=== PATIENT | female | born 1990 | race African-American/Black ===

== ENCOUNTER 2023-04-01 15:36 | Observation (INO) | payer BC ==
--- OUTSIDE RECORDS SUMMARY | 2023-04-01 15:44 | XMS REPORT | Continuity of Care Document ---
:1990 Author Organization [facility] t Address [address] [place] [address] Care Team Providers Name Role Phone DAVONSAVANNAH SinghHEN Primary Care Physician Unavailable KIAH BARROS Attending Clinician Unavailable Kiah Barros MD Attending Clinician Norman Zaragoza MD Attending Clinician NORMAN ZARAGOZA Attending Clinician Unavailable MAXWELL PINEDA Attending Clinician Unavailable Maxwell Pineda DO Attending Clinician DAIN MAGAÑA Attending Clinician Unavailable Neil Elkins CRNA Attending Clinician Franklin Hunter MD Attending Clinician Doctor Unassigned, [place] Attending Clinician Unavailable Gena Giraldo Attending Clinician Unavailable GEOVANNY MCKNIGHT Attending Clinician Unavailable Geovanny Mcknight MD Attending Clinician Ck MARTÍNEZ Attending Clinician Unavailable Ck Marquez Attending Clinician LOGAN POWERS Attending Clinician Unavailable Logan Powers MD Attending Clinician [phone] OLGA HUFF Attending Clinician Unavailable Olga Huff MD Attending Clinician 2, [facility] Attending Clinician Unavailable Michael James Attending Clinician RICK SAXENA Attending Clinician Unavailable UNKNOWN, ATTENDING Attending Clinician Unavailable KIAH BARROS Admitting Clinician Unavailable MAXWELL PINEDA Admitting Clinician Unavailable NORMAN ZARAGOZA Admitting Clinician Unavailable Ck MARTÍNEZ Admitting Clinician Unavailable Olga Huff MD Admitting Clinician Payers Payer Name Policy Type Policy Number Effective Date Expiration Date S [facility] [id number] 2020 00:00:00 [employer] [facility] CARE [id number] 2017 00:00:00 Problems Condition Condition Condition Status Onset Resolution Last Treating Co mments Source Name Details Category Date Date Treatment Clinician Date Morbid Morbid Disease Active Univers obesity obesity 3-04 [place] of with [place] mass index 00 Me dical of of Branch 40.0-49.9 40.0-49.9 Acute Acute Disease Active Overview: Univer s cholecysti cholecysti 2-14 Formattin ity of tis tis 00:00: g of this [place] 00 note Medical might be Branch different from the original. Added automatic ally from request for surgery [id number] Acute Acute Disease Active Univers cystitis cystitis 9-14 ity of without without 00:00: [place] hematuria hematuria 00 Medi kellie Branch Ovarian Ovarian Disease Active Univers torsion torsion 9-13 ity of 00:00: [place] 00 Medical Branch Ovarian Ovarian Disease Active Univers mass, mass, 9- ity of right right 00:00: [place] 00 Medical Branch Status Status Disease Active Univers post post 07-08 ity of laparoscop laparoscop 00:00: Rashid stock y y Medical Branch Status Status Disease Active Univers post right post right 07-08 it y of oophorecto oophorecto 00:00: Rashid stock my my Medical Branch Obesity Obesity Disease Active Univers 2-11 ity of 00:00: [place] Medical Branch Immune to Immune to Disease Active Uni vers varicella varicella 2-11 ity of 00:00: [place] [facility] Rubella Rubella Disease Active Univers immune immune 2-11 ity of 00:00: [place] 00 Medical Branch Allergies, Adverse Reactions, Alerts Allergy Allergy Status Severity Reaction(s) Onset Inactive Treating Comm ents Source Name Type Date Date Clinician SULFAMET DRUG Active High ITCHING Univers HOXAZOLE 1-11 ity of -TRIMETH 00:00: [place] OPRIM 00 Medical Branch SULFAMET Allergy Active High Itching [facility]11 [facility]TR[facility] Medical OPRIM 00 Center Sulfamet Propensi Active Itching, [facility] hoxazole ty to Sw[facility] - [facility] -Trimeth adverse 00:00: Medical oprim reaction 00 Center s No Known DA Active U [facility] Allergie 4-29 [facility] [place] Sulfamet Propensi Active Swelling Univ ers hoxazole ty to 05-27 ity of adverse 00:00: [place] reaction 00 Medical s Branch SULFAMET DRUG Active Swelling Univer s HOXAZOLE INGREDI 8- ity of 00:00: [place] 00 Medical Branch No Known DA Active U [facility] Drug 8-12 [facility] 00:[facility]: [facility] 00 [facility] [place] Social History Social Habit Start Date Stop Date Quantity Comments Source Exposure to 2023-01-19 2023-01-29 Not sure University SARS-CoV-2 00:00:00 21:49:00 [place] Medical (event) Branch Alcohol intake 2023-01-12 2023-01-12 Current drinker of Un iversity of 00:00:00 00:00:00 alcohol (finding) [facility] Alcohol Comment 2022-12-29 2022-12-29 occasionally Univers ity of 00:00:00 00:00:00 [place] [facility] Tobacco use and 2022-12-08 2022-12-08 Smokeless tobacco Un iversity of exposure 00:00:00 00:00:00 non-user [place] [facility] Sex Assigned At [birth year] [facility] 00:00:00 00:00:00 [facility] Smoking Status Start Date Stop Date Source Never smoked tobacco [facility] Medications Ordered Filled Start Stop Current Ordering Indication Dosage Frequency Signature Comments Components Source Medication Medication Date Date Medication? Clinician (SIG) Name Name ketorolac No 30mg 30 mg, Unive rs (TORADOL) 01-30 Slow IV ity of injection 06:30: 05:40 Push, [place] 30 mg 00 :00 ONCE, 1 Medical dose, On Branch 01/30/23 at 0130, [place] iopamidol No [id number] 100mL 100 mL, Univers (ISOVUE 01-30 Intravenou ity o f 370-500 mL) 04:45: 04:45 s, ONCE, 1 [place] injection 00 :00 dose, On Medica l 100 mL [facility] 01/29/23 Branch at 2345, Routine maalox:diph No 15mL 15 mL, Uni vers enhydrAMINE 01-30 Oral, ity of :lidocaine 04:30: 04:35 ONCE, 1 Long as 2 % viscous 00 :00 dose, On Medi kellie 1:1:1 Ena 01/29/23 Branch (FIRST-MOUT at 2330, HWASH BLM) [place] oral suspension 15 mL ondansetron No 4mg 4 mg, Slow Univers (ZOFRAN 01-30 IV Push, ity of (PF)) 04:00: 03:06 ONCE, 1 [place] injection 4 00 :00 dose, On Medi kellie mg Ena 01/29/23 Branch at 2300, [place] morpHINE (4 2023-0 2023- No 4mg 4 mg, Slow Univers mg/mL) 01-30 04-07 IV Push, ity of injection 4 03:30: 03:21 ONCE, 1 [place] mg 00 :00 dose, On Medical Ena 01/29/23 Branch at 2230, STAT ibuprofen 2022-0 Yes [id number] 600mg Take 1 Univers 600 mg 4-07 tablet by ity of tablet 00:00: mouth [place] 00 every 8 Medical (eight) Branch hours as needed for Pain (scale 4-6). ibuprofen 2022-0 Yes [id number] 600mg Take 1 Univers 600 mg 4-07 tablet by ity of tablet 00:00: mouth [place] 00 every 8 Medical (eight) Branch hours as needed for Pain (scale 4-6). omeprazole 2022-0 Yes 20mg Take 1 Unive rs 20 mg 3-20 tablet by ity of tablet 13:59: mouth in [place] the Medical morning. Branch omeprazole 2022-0 Yes 20mg Take 1 Unive rs 20 mg 3-20 tablet by ity of tablet 13:59: mouth in [place] the Medical morning. Branch omeprazole 2022-0 Yes 20mg Take 1 Unive rs 20 mg 3-20 tablet by ity of tablet 13:59: mouth in [place] the Medical morning. Branch omeprazole 2022-0 Yes 20mg Take 1 Unive rs 20 mg 3-20 tablet by ity of tablet 13:59: mouth in [place] the Medical morning. Branch omeprazole 2022-0 Yes 20mg Take 1 Unive rs 20 mg 3-20 tablet by ity of tablet 13:59: mouth in [place] the Medical morning. Branch bisacodyL 2022-0 2022- Yes [id number] 10mg Insert 1 Univers 10 mg 3-24 Suppositor ity of suppository 00:00: 04:59 y into Long as 00 :00 rectum Medical once daily Branch as needed for Constipati on for up to 14 days. bisacodyL 2022-0 2022- Yes [id number] 10mg Insert 1 Univers 10 mg 3-06 28-24 Suppositor ity of suppository 00:00: 04:59 y into Long as 00 :00 rectum Medical once daily Branch as needed for Constipati on for up to 14 days. iopamidol 2022-0 2022- No [id number] 69mL 69 mL, U nivers (ISOVUE 3-05 28-08 Intravenou ity o f 370-500 mL) 21:30: 21:30 s, ONCE, 1 [place] injection 00 :00 dose, On Medica l 69 mL Thu12/31/22 Branch at 1530, Routine ondansetron 0 2022- No 4mg 4 mg, Slow Univers (ZOFRAN 12-31-08 IV Push, ity of (PF)) 20:45: 20:01 ONCE, 1 [place] injection 4 00 :00 dose, On Medi kellie mg Thu12/31/22 Branch at 1445, Routine morpHINE (4 0 Yes 4mg 4 mg, Slow Univers mg/mL) 3-08 IV Push, ity of injection 4 19:36: Q4HPRN, Long as mg 03 Starting Medical on Thu12/31/22 at 1336, Until Discontinu ed, Routine, Pain (scale 7-10) polyethylen 2022-0 Yes Take 1 Univers e glycol 3-08 packet ity of 3350 00:00: dissolved [place] (MIRALAX) 00 in 4-8 Medical 17 gram ounces Branch powder beverage. polyethylen 2022-0 Yes Take 1 Univers e glycol 3-08 packet ity of 3350 00:00: dissolved [place] (MIRALAX) 00 in 4-8 Medical 17 gram ounces Branch powder beverage. polyethylen 2022-0 Yes Take 1 Univers e glycol 3-08 packet ity of 3350 00:00: dissolved [place] (MIRALAX) 00 in 4-8 Medical 17 gram ounces Branch powder beverage. polyethylen 2022-0 Yes Take 1 Univers e glycol 3-08 packet ity of 3350 00:00: dissolved [place] (MIRALAX) 00 in 4-8 Medical 17 gram ounces Branch powder beverage. HYDROcodone 2022-0 2022- No 1{tbl} 1 tablet, Univers -acetaminop 3 03-06 Oral, ity of hen (NORCO 19:15: 18:20 ONCE, 1 [place] as 5) 5-325 mg 00 :00 dose, On Medi kellie tablet 1 Thu12/29/22 Branc h tablet at 1315, Routine, PACU HYDROcodone 2022- No 1{tbl} 1 tablet, Univers -acetaminop 12-29 Oral, ity of hen (NORCO 19:15: 18:20 ONCE, 1 Long as 5) 5-325 mg 00 :00 dose, On Medi kellie tablet 1 Thu12/29/22 Branc h tablet at 1315, Routine, PACU proMETHazin Yes 25mg 25 mg, IV U nivers e 12-29 Piggyback, ity of (PHENERGAN) 16:58: PRN, 1 [place] 25 mg in 06 dose, Medical NaCl 0.9% Starting Branch (NS) 50 mL on Mon IV 12/29/22 at piggyback 1058, Until Discontinu ed, Routine, Nausea and Vomiting (N/V), PACU FENTanyl PF 2022- No 50ug 50 mcg, Un saji (SUBLIMAZE 12-29 Slow IV ity o f (PF)) 16:58: 18:28 Push, [place] injection 06 :00 Q5MIN PRN, Medi kellie 50 mcg 4 doses, Branch Starting on Thu12/29/22 at 1058, Until Discontinu ed, Routine, Pain (scale 4-6), PACU FENTanyl PF 2022- No 50ug 50 mcg, Un saji (SUBLIMAZE 12-29 Slow IV ity o f (PF)) 16:58: 18:28 Push, [place] injection 06 :00 Q5MIN PRN, Medi kellie 50 mcg 4 doses, Branch Starting on Thu12/29/22 at 1058, Until Discontinu ed, Routine, Pain (scale 4-6), PACU proMETHazin 2022- No 25mg 25 mg, IV Univers e 12-29-06 Piggyback, ity of (PHENERGAN) 16:58: 21:34 PRN, 1 [place] 25 mg in 06 :18 dose, Medical NaCl 0.9% Starting Branch (NS) 50 mL on Mon IV 12/29/22 at piggyback 1058, Until 12/29/22 at 1534, Routine, Nausea and Vomiting (N/V), PACU sugammadex 2022- No IV Push, Un saji (BRIDION) 12-29 ONCE INTRA ity of injection 16:38: 16:55 PROCEDURE, [place] 00 :30 Starting Medical on Thu Branch 12/29/22 at 1038, Until Discontinu ed, Routine, Intra-op sugammadex 2022- No IV Push, Un saji (BRIDION) 12-29 ONCE INTRA ity of injection 16:38: 16:55 PROCEDURE, [place] 00 :30 Starting Medical on Thu Branch 12/29/22 at 1038, Until Discontinu ed, Routine, Intra-op ketorolac 2022- No Slow IV Univ ers (TORADOL) 12-29 Push, ONCE ity of injection 16:34: 16:55 INTRA [place] 00 :30 PROCEDURE, Medical Starting Branch on Thu12/29/22 at 1034, Until Discontinu ed, Routine, Intra-op ketorolac 2022- No Slow IV Univ ers (TORADOL) 12-29 Push, ONCE ity of injection 16:34: 16:55 INTRA [place] 00 :30 PROCEDURE, Medical Starting Branch on Thu12/29/22 at 1034, Until Discontinu ed, Routine, Intra-op acetaminoph 2022- No IV Unive rs en ADULT 12-29 Infusion, ity o f (OFIRMEV) 16:33: 16:55 Administer [place] injection 00 :30 over 15 Medical Minutes, Branch ONCE INTRA PROCEDURE, Starting on Thu12/29/22 at 1033, Until Discontinu ed, Routine, Intra-op acetaminoph 2022- No IV Unive rs en ADULT 12-29 Infusion, ity o f (OFIRMEV) 16:33: 16:55 Administer [place] injection 00 :30 over 15 Medical Minutes, Branch ONCE INTRA PROCEDURE, Starting on Thu12/29/22 at 1033, Until Discontinu ed, Routine, Intra-op famotidine 2022- No Slow IV Uni vers (PEPCID 12-29 Push, ONCE ity o f (PF)) 16:31: 16:55 INTRA [place] injection 00 :30 PROCEDURE, Medi kellie Starting Branch on Thu12/29/22 at 1031, Until Discontinu ed, Routine, Intra-op famotidine 2022- No Slow IV Uni vers (PEPCID 12-29- Push, ONCE ity o f (PF)) 16:31: 16:55 INTRA [place] injection 00 :30 PROCEDURE, [facility] kellie Starting Branch on Thu12/29/22 at 1031, Until Discontinu ed, Routine, Intra-op ondansetron 2022- No Slow IV Un saji (ZOFRAN 12-29- Push, ONCE ity o f (PF)) 16:28: 16:55 INTRA [place] injection 00 :30 PROCEDURE, [facility] Starting Branch on Thu12/29/22 at 1028, Until Discontinu ed, Routine, Intra-op ondansetron 2022- No Slow IV Un saji (ZOFRAN 12-29- Push, ONCE ity o f (PF)) 16:28: 16:55 INTRA [place] injection 00 :30 PROCEDURE, [facility] Starting Branch on Thu12/29/22 at 1028, Until Discontinu ed, Routine, Intra-op diphenhydrA 2022- No Slow IV Un saji MINE 12-29- Push, ONCE ity of (BENADRYL) 16:27: 16:55 INTRA [place] injection 00 :30 PROCEDURE, [facility] Starting Branch on Thu12/29/22 at 1027, Until Discontinu ed, Routine, Intra-op diphenhydrA 2022- No Slow IV Un saji MINE 12-29- Push, ONCE ity of (BENADRYL) 16:27: 16:55 INTRA [place] injection 00 :30 PROCEDURE, [facility] Starting Branch on Thu12/29/22 at 1027, Until Discontinu ed, Routine, Intra-op dexamethaso 2022- No IV Push, U nivers ne 12-29-06 ONCE INTRA ity of (DECADRON 16:26: 16:55 PROCEDURE, [place] PHOSPHATE) 00 :30 Starting Medic al injection on Thu12/29/22 at 1026, Until Discontinu ed, Routine, Intra-op dexamethaso 2022-2022- No IV Push, U nivers ne 12-29-06 ONCE INTRA ity of (DECADRON 16:26: 16:55 PROCEDURE, [place] PHOSPHATE) 00 :30 Starting Medic al injection on Mon Branch 12/29/22 at 1026, Until Discontinu ed, Routine, Intra-op Hydromorpho 2022- No Intravenou Univers ne (PF) 12-29 04-06 s, ONCE ity of (DILAUDID 15:52: 21:32 INTRA [place] (PF)) 00 :02 PROCEDURE, Medical injectioon Starting Branc h on Thu12/29/22 at 0952, Until Ena 01/29/23 at 1632, Routine, Intra-op Hydromorpho 2022- No Intravenou Univers ne (PF) 12-29 03-07 s, ONCE ity of (DILAUDID 15:52: 16:18 INTRA [place] (PF)) 00 :43 PROCEDURE, Medical injectioon Starting Branc h on Thu12/29/22 at 0952, Until 12/30/22 at 1018, Routine, Intra-op sodium 2022- No PRN, Univers chloride 12-29 Starting ity of 0.9 % 15:23: 19:06 on [facility] irrigation 00 :35 12/29/22 at Medi kellie solution 0923, Branch Until 12/29/22 at 1306, Intra-op bupivacaine 2022- No PRN, Unive rs (preserv 12-29 Starting ity of free) 15:22: 19:06 on Thu [place] (SENSORCAIN 00 :35 12/29/22 at Med ical E MPF) 0.25 0922, Branch % (2.5 Until Mon mg/mL) 12/29/22 at injection 1306, Routine, Intra-op ceFAZolin 2022- No Intravenou U nivers (ANCEF) 12-29- s, ONCE ity of injection 15:17: 16:55 INTRA [place] 00 :30 PROCEDURE, Medical Starting Branch on Thu12/29/22 at 0917, Until Discontinu ed, [place], Intra-op ceFAZolin 2022- No Intravenou U nivers (ANCEF) 12-29 03-06 s, ONCE ity of injection 15:17: 16:55 INTRA [place] 00 :30 PROCEDURE, Medical Starting Branch on Thu12/29/22 at 0917, Until Discontinu ed, [place], Intra-op rocuronium 2022- No IV Push, Un saji (ZEMURON) 12-29-06 ONCE INTRA ity of injection 15:08: 16:55 PROCEDURE, [place] 00 :30 Starting Medical on [facility] 12/29/22 at 0908, Until Discontinu ed, Routine, Intra-op propofoL IV 2022-2022- No Intravenou Univers infusion 12-29-06 s, ONCE ity of 15:08: 16:55 INTRA [place] 00 :30 PROCEDURE, Medical Starting Branch on Thu12/29/22 at 0908, Until Discontinu ed, Routine, Intra-op FENTanyl PF 2022- No Intravenou Univers (SUBLIMAZE 12-29-06 s, ONCE ity o f (PF)) 15:08: 16:55 INTRA [place] injection 00 :30 PROCEDURE, [facility] Starting Branch on Thu12/29/22 at 0908, Until Discontinu ed, Routine, Intra-op rocuronium 2022- No IV Push, Un saji (ZEMURON) 12-29-06 ONCE INTRA ity of injection 15:08: 16:55 PROCEDURE, [place] 00 :30 Starting Medical on [facility] 12/29/22 at 0908, Until Discontinu ed, Routine, Intra-op propofoL IV 2022- No Intravenou Univers infusion 12-29-06 s, ONCE ity of 15:08: 16:55 INTRA [place] 00 :30 PROCEDURE, Medical Starting Branch on Thu12/29/22 at 0908, Until Discontinu ed, Routine, Intra-op FENTanyl PF 2022-2022- No Intravenou Univers (SUBLIMAZE 12-29-06 s, ONCE ity o f (PF)) 15:08: 16:55 INTRA [place] injection 00 :30 PROCEDURE, [facility] Starting Branch on Thu12/29/22 at 0908, Until Discontinu ed, Routine, Intra-op lidocaine 2022-2022- No Intravenou U nivers 1% 12-29-06 s, ONCE ity of (XYLOCAINE) 15:07: 16:55 INTRA [place] 100 mg/10 00 :30 PROCEDURE, [facility] kellie mL (1 %) Starting Branch injection on Thu12/29/22 at 0907, Until Discontinu ed, Routine, Intra-op lidocaine 2022-0 2022- No Intravenou U nivers 1% 12-29-06 s, ONCE ity of (XYLOCAINE) 15:07: 16:55 INTRA [place] 100 mg/10 00 :30 PROCEDURE, Medi kellie mL (1 %) Starting Branch injection on Thu12/29/22 at 0907, Until Discontinu ed, Routine, Intra-op midazolam 2022-0 2022- No IV Push, Uni vers (VERSED) 12-29-06 ONCE INTRA ity of injection 14:58: 16:55 PROCEDURE, [place] 00 :30 Starting Medical on Thu [place] 12/29/22 at 0858, Until Discontinu ed, Routine, Intra-op midazolam 2022-0 2022- No IV Push, Uni vers (VERSED) 12-29-06 ONCE INTRA ity of injection 14:58: 16:55 PROCEDURE, [place] 00 :30 Starting Medical on [facility] 12/29/22 at 0858, Until Discontinu ed, Routine, Intra-op lactated 2022-0 2022- No IV Univers ringers IV 12-29-06 Infusion, ity of infusion 14:56: 16:55 CONTINUOUS [place] 00 :30 PRN, Medical Starting Branch on Thu12/29/22 at 0856, Until Discontinu ed, Routine, Intra-op lactated 2022-0 2022- No IV Univers ringers IV 12-29-06 Infusion, ity of infusion 14:56: 16:55 CONTINUOUS [place] 00 :30 PRN, Medical Starting Branch on Thu12/29/22 at 0856, Until Discontinu ed, Routine, Intra-op lactated 2022-0 2022- No 1000mL at 42 Unive rs ringers IV 12-29 03-06 mL/hr, ity of infusion 13:30: 13:33 1,000 mL, Long as 1,000 mL 00 :00 IV Medical Infusion, Branch ONCE, 1 dose, On Thu12/29/22 at 0730, Routine, DSU Pre-op lactated 2022-0 2022- No 1000mL at 42 Unive rs ringers IV 3-06 03-06 mL/hr, ity of infusion 13:30: 13:33 1,000 mL, Long as 1,000 mL 00 :00 IV Medical Infusion, Branch ONCE, 1 dose, On Thu12/29/22 at 0730, Routine, DSU Pre-op omeprazole 2023-0 Yes 20mg Take 1 Unive rs 20 mg 3-06 tablet by ity of tablet 13:29: mouth in [place] [address] the Medical morning. Branch omeprazole 2023-0 Yes 20mg Take 1 Unive rs 20 mg 3-06 tablet by ity of tablet 13:29: mouth in [place] [address] the Medical morning. Branch omeprazole 2023-0 Yes 20mg Take 1 Unive rs 20 mg 3-06 tablet by ity of tablet 13:29: mouth in [place] [address] the Medical morning. Branch omeprazole 2023-0 Yes 20mg Take 1 Unive rs 20 mg 3-06 tablet by ity of tablet 13:29: mouth in [place] [address] the Medical morning. Branch omeprazole 2023-0 Yes 20mg Take 1 Unive rs 20 mg 3-06 tablet by ity of tablet 13:29: mouth in [place] [address] the Medical morning. Branch omeprazole 2023-0 Yes 20mg Take 1 Unive rs 20 mg 3-06 tablet by ity of tablet 13:29: mouth in [place] [address] the Medical morning. Branch ibuprofen 2023-0 2022- No [id number] 800mg Take 1 Univers 800 mg 3-03 28-21 tablet by ity of tablet 00:00: 04:59 mouth in [place] 00 :00 the Medical morning Branch and 1 tablet at noon and 1 tablet in the evening. Do all this for 14 days. acetaminoph 2023-0 2022- No [id number] 1000mg Take 2 Univers en (TYLENOL 3-03 28-21 tablets by i ty of EXTRA 00:00: 04:59 mouth in [place] STRENGTH) 00 :00 the Medical 500 mg morning Branch tablet and 2 tablets at noon and 2 tablets in the evening. Do all this for 14 days. ibuprofen 2023-0 2022- No [id number] 800mg Take 1 Univers 800 mg 3-03 28-21 tablet by ity of tablet 00:00: 04:59 mouth in [place] 00 :00 the Medical morning Branch and 1 tablet at noon and 1 tablet in the evening. Do all this for 14 days. acetaminoph 2023-0 3- No [id number] 1000mg Take 2 Univers en (TYLENOL 3-06 03-21 tablets by i ty of EXTRA 00:00: 04:59 mouth in [place] STRENGTH) 00 :00 the Medical 500 mg morning Branch tablet and 2 tablets at noon and 2 tablets in the evening. Do all this for 14 days. ibuprofen 3-0 2022- No [id number] 800mg Take 1 Univers 800 mg 3- 03-21 tablet by ity of tablet 00:00: 04:59 mouth in [place] 00 :00 the Medical morning Branch and 1 tablet at noon and 1 tablet in the evening. Do all this for 14 days. acetaminoph 3-0 3- No [id number] 1000mg Take 2 Univers en (TYLENOL 3- 03-21 tablets by i ty of EXTRA 00:00: 04:59 mouth in [place] STRENGTH) 00 :00 the Medical 500 mg morning Branch tablet and 2 tablets at noon and 2 tablets in the evening. Do all this for 14 days. ibuprofen 3-0 3- No [id number] 800mg Take 1 Univers 800 mg 3-03 28-21 tablet by ity of tablet 00:00: 04:59 mouth in [place] 00 :00 the Medical morning Branch and 1 tablet at noon and 1 tablet in the evening. Do all this for 14 days. acetaminoph 3-0 2022- No [id number] 1000mg Take 2 Univers en (TYLENOL 3- 03-21 tablets by i ty of EXTRA 00:00: 04:59 mouth in [place] STRENGTH) 00 :00 the Medical 500 mg morning Branch tablet and 2 tablets at noon and 2 tablets in the evening. Do all this for 14 days. ibuprofen 3-0 3- No [id number] 800mg Take 1 Univers 800 mg 3-06 03-21 tablet by ity of tablet 00:00: 04:59 mouth in [place] 00 :00 the Medical morning Branch and 1 tablet at noon and 1 tablet in the evening. Do all this for 14 days. acetaminoph 2023-0 2022- No [id number] 1000mg Take 2 Univers en (TYLENOL 3-06 03-21 tablets by i ty of EXTRA 00:00: 04:59 mouth in [place] STRENGTH) 00 :00 the Medical 500 mg morning Branch tablet and 2 tablets at noon and 2 tablets in the evening. Do all this for 14 days. ibuprofen 2022-0 2022- No [id number] 800mg Take 1 Univers 800 mg 12-29-21 tablet by ity of tablet 00:00: 04:59 mouth in [place] 00 :00 the Medical morning Branch and 1 tablet at noon and 1 tablet in the evening. Do all this for 14 days. acetaminoph 2022-0 2022- No [id number] 1000mg Take 2 Univers en (TYLENOL 12-29-21 tablets by i ty of EXTRA 00:00: 04:59 mouth in [place] STRENGTH) 00 :00 the Medical 500 mg morning Branch tablet and 2 tablets at noon and 2 tablets in the evening. Do all this for 14 days. ibuprofen 2022-0 2022- No [id number] 800mg Take 1 Univers 800 mg 12-29 tablet by ity of tablet 00:00: 04:59 mouth in [place] 00 :00 the Medical morning Branch and 1 tablet at noon and 1 tablet in the evening. Do all this for 14 days. acetaminoph 2022-0 2022- No [id number] 1000mg Take 2 Univers en (TYLENOL 12-29-21 tablets by i ty of EXTRA 00:00: 04:59 mouth in [place] STRENGTH) 00 :00 the Medical 500 mg morning Branch tablet and 2 tablets at noon and 2 tablets in the evening. Do all this for 14 days. polyethylen 2022-0 2022- No [id number] Take 1 Univers e glycol 12-29-18 packet ity of 3350 00:00: 04:59 dissolved [place] (MIRALAX) 00 :00 in 4-8 Medical 17 gram ounces Branch powder beverage. polyethylen 2022-0 2022- No [id number] Take 1 Univers e glycol 12-29-18 packet ity of 3350 00:00: 04:59 dissolved [place] (MIRALAX) 00 :00 in 4-8 Medical 17 gram ounces Branch powder beverage. polyethylen 2022-0 2022- No [id number] Take 1 Univers e glycol 12-29-18 packet ity of 3350 00:00: 04:59 dissolved [place] (MIRALAX) 00 :00 in 4-8 Medical 17 gram ounces Branch powder beverage. polyethylen 2022-0 2022- No [id number] Take 1 Univers e glycol 12-29 packet ity of 3350 00:00: 04:59 dissolved [place] (MIRALAX) 00 :00 in 4-8 Medical 17 gram ounces Branch powder beverage. polyethylen 2022-2022- No [id number] Take 1 Univers e glycol 12-29 packet ity of 3350 00:00: 04:59 dissolved [place] (MIRALAX) 00 :00 in 4-8 Medical 17 gram ounces Branch powder beverage. traMADoL 50 2022-0 2022- No [id number] 50mg Take 1 Uni vers mg tablet 12-29 tablet by ity of 00:00: 04:59 mouth [place] 00 :00 every 6 Medical (six) Branch hours for 7 days. Indication s: acute pain traMADoL 50 2022-0 2022- No [id number] 50mg Take 1 Uni vers mg tablet 12-29 tablet by ity of 00:00: 04:59 mouth [place] 00 :00 every 6 Medical (six) Branch hours for 7 days. Indication s: acute pain traMADoL 50 2022-0 2022- No [id number] 50mg Take 1 Uni vers mg tablet 12-29 tablet by ity of 00:00: 04:59 mouth [place] 00 :00 every 6 Medical (six) Branch hours for 7 days. Indication s: acute pain traMADoL 50 2022-0 2022- No [id number] 50mg Take 1 [facility] mg tablet 12-29 tablet by ity of 00:00: 04:59 mouth [place] 00 :00 every 6 Medical (six) Branch hours for 7 days. Indication s: acute pain traMADoL 50 2022-0 2022- No [id number] 50mg Take 1 [facility] mg tablet 12-29 tablet by ity of 00:00: 04:59 mouth [place] 00 :00 every 6 Medical (six) Branch hours for 7 days. Indication s: acute pain ondansetron 2022-2022- No [id number] 8mg Take 1 [facility] 8 mg 12-29-09 tablet by ity of disintegrat 00:00: 05:59 [place] 00 :00 every 8 Medica l (eight) Branch hours as needed for Nausea and Vomiting (N/V) for up to 2 days. ondansetron 2022-0 2022- No [id number] 8mg Take 1 [facility] 8 mg 3-03 28-09 tablet by ity of disintegrat 00:00: 05:59 [place] 00 :00 every 8 Medica l (eight) Branch hours as needed for Nausea and Vomiting (N/V) for up to 2 days. ondansetron 2022-0 2022- No [id number] 8mg Take 1 [facility] 8 mg 3-03 28-09 tablet by ity of disintegrat 00:00: 05:59 [place] 00 :00 every 8 Medica l (eight) Branch hours as needed for Nausea and Vomiting (N/V) for up to 2 days. ondansetron 2022-0 2022- No [id number] 8mg Take 1 [facility] 8 mg 3-03 28-09 tablet by ity of disintegrat 00:00: 05:59 [place] 00 :00 every 8 Medica l (eight) Branch hours as needed for Nausea and Vomiting (N/V) for up to 2 days. ondansetron 2022-0 2022- No [id number] 8mg Take 1 [facility] 8 mg 3-03 28-09 tablet by ity of disintegrat 00:00: 05:59 [place] 00 :00 every 8 Medica l (eight) Branch hours as needed for Nausea and Vomiting (N/V) for up to 2 days. phentermine 2022- No Take by [facility] HCl 2- mouth. ity of (PHENTERMIN 13:56: 00:00 [place] E ORAL) 07 :00 Medical Branch phentermine 2022-0 2022- No Take by [facility] HCl 2-27 mouth. ity of (PHENTERMIN 13:56: 00:00 [place] E ORAL) 07 :00 Medical Branch amoxicillin 2022-0 Yes [id number] 1{tbl} Take 1 [facility] -clavulanat 2-13 tablet by ity of e 00:00: mouth in [place] (AUGMENTIN) 00 the Medical 875-125 mg morning Branch per tablet and 1 tablet in the evening. amoxicillin 2022-0 Yes [id number] 1{tbl} Take 1 [facility] -clavulanat 2-13 tablet by ity of e 00:00: mouth in [place] (AUGMENTIN) 00 the Medical 875-125 mg morning Branch per tablet and 1 tablet in the evening. amoxicillin 2022-0 Yes [id number] 1{tbl} Take 1 [facility] -clavulanat 2-13 tablet by ity of e 00:00: mouth in [place] (AUGMENTIN) 00 the Medical 875-125 mg morning Branch per tablet and 1 tablet in the evening. amoxicillin 2022-2022- No [id number] 1{tbl} Take 1 [facility] -clavulanat 2-13 03-06 tablet by it y of e 00:00: 00:00 mouth in [place] (AUGMENTIN) 00 :00 the Medical 875-125 mg morning Branch per tablet and 1 tablet in the evening. amoxicillin 2022-2022- No [id number] 1{tbl} Take 1 [facility] -clavulanat 2-13 03-06 tablet by it y of e 00:00: 00:00 mouth in [place] (AUGMENTIN) 00 :00 the Medical 875-125 mg morning Branch per tablet and 1 tablet in the evening. amoxicillin 2022-0 2022- No [id number] 1{tbl} Take 1 [facility] -clavulanat 2-13 03-06 tablet by it y of e 00:00: 00:00 mouth in [place] (AUGMENTIN) 00 :00 the Medical 875-125 mg morning Branch per tablet and 1 tablet in the evening. amoxicillin 2022-2022- No [id number] 1{tbl} Take 1 [facility] -clavulanat 2-13 03-06 tablet by it y of e 00:00: 00:00 mouth in [place] (AUGMENTIN) 00 :00 the Medical 875-125 mg morning Branch per tablet and 1 tablet in the evening. dicyclomine 2022- No 20mg 20 mg, Uni vers (BENTYL) 12-03 Intramuscu ity of injection 15:00: 14:32 lar, ONCE [place] 20 mg 00 :00 NOW, 1 Medical dose, On Branch Thu12/03/22 at 0900, Routine ketorolac 2022- No 30mg 30 mg, [facility] (TORADOL) 12-03 Slow IV ity of injection 14:45: 14:30 Push, ONCE [place] 30 mg 00 :00 NOW, 1 Medical dose, On Branch Thu12/03/22 at 0845, [place] NaCl 0.9% 2022- No 500mL at 999 Univ ers (NS) bolus 12-0308 mL/hr, 500 it y of infusion 14:00: 15:10 mL, IV [place] 500 mL 00 :00 Infusion, Medical ONCE, 1 Branch dose, On Thu12/03/22 at 0800, STAT ondansetron 2022-0 2022- No 4mg 4 mg, Slow [facility] (ZOFRAN 12-03 IV Push, ity of (PF)) 14:00: 14:30 ONCE, 1 [place] injection 4 00 :00 dose, On Medi [place]ell[place] mg Thu12/03/22 Branch at 0800, [place] diphenhydrA 2022- No 25mg 25 mg, [facility] vers MINE 12-03 Slow IV ity of (BENADRYL) 02:45: 01:51 Push, [place] injection 00 :00 ONCE, 1 Medical 25 mg dose, On Branch Thu12/02/22 at 2045, STAT metoclopram 0 2022- No 10mg 10 mg, Uni [facility] nu HCl 12-03 Slow IV ity of (REGLAN) 02:45: 01:51 Push, [place] injection 00 :00 ONCE, 1 Medical 10 mg dose, On Branch Thu12/02/22 at 2045, [place] ketorolac 2022-0 2022- No 15mg 15 mg, [facility] (TORADOL) 12-03 Slow IV ity of injection 02:45: 01:51 Push, [place] 15 mg 00 :00 ONCE, 1 Medical dose, On Branch Thu12/02/22 at 2045, [place] NaCl 0.9% 2022-0 2022- No 1000mL at 999 Uni vers (NS) bolus 12-0308 mL/hr, ity of infusion 00:30: 02:13 1,000 mL, [place] 1,000 mL 00 :00 IV Medical Infusion, Branch ONCE, 1 dose, On Thu12/02/22 at 1830, STAT ondansetron 2022-0 2022- No 4mg 4 mg, Slow [facility] (ZOFRAN 2- IV Push, ity of (PF)) 00:30: 23:32 ONCE, 1 [place] injection 4 00 :00 dose, On Medi [place]ellie mg Thu12/02/22 Branch at 1830, [place] morpHINE (2 2022-0 2022- No 4mg 4 mg, Slow [facility] mg/mL) 12-03- IV Push, ity of injection 4 00:30: 23:32 ONCE, 1 [place] mg 00 :00 dose, On Medical Thu12/02/22 Branch at 1830, STAT hyoscyamine 2022-[id number] 2 [facility] sulfate 2-08 tablets ity of (LEVSIN/SL) 00:00: under the [place] 0.125 mg 00 tongue Medical sublingual every 6 Branch tablet (six) hours as needed (Abdominal pain or cramping). ketorolac 2022-0 Yes [id number] 10mg Take 1 [facility] 10 mg 2-08 tablet by ity of tablet 00:00: mouth [place] 00 every 6 Medical (six) Branch hours as needed for Pain (scale 4-6) or Pain (scale 7-10). hyoscyamine 2022-[id number] 2 [facility] sulfate 2-08 tablets ity of (LEVSIN/SL) 00:00: under the [place] 0.125 mg 00 tongue Medical sublingual every 6 Branch tablet (six) hours as needed (Abdominal pain or cramping). ketorolac 2022-0 Yes [id number] 10mg Take 1 [facility] 10 mg 2-08 tablet by ity of tablet 00:00: mouth [place] 00 every 6 Medical (six) Branch hours as needed for Pain (scale 4-6) or Pain (scale 7-10). hyoscyamine 3-[id number] 2 [facility] sulfate 2-08 tablets ity of (LEVSIN/SL) 00:00: under the [place] 0.125 mg 00 tongue Medical sublingual every 6 Branch tablet (six) hours as needed (Abdominal pain or cramping). ketorolac 2022-0 Yes [id number] 10mg Take 1 [facility] 10 mg 2-08 tablet by ity of tablet 00:00: mouth [place] 00 every 6 Medical (six) Branch hours as needed for Pain (scale 4-6) or Pain (scale 7-10). hyoscyamine 2023-[id number] 2 [facility] sulfate 2-08 tablets ity of (LEVSIN/SL) 00:00: under the [place] 0.125 mg 00 tongue Medical sublingual every 6 Branch tablet (six) hours as needed (Abdominal pain or cramping). ketorolac 2023-0 Yes [id number] 10mg Take 1 [facility] 10 mg 2-08 tablet by ity of tablet 00:00: mouth [place] 00 every 6 Medical (six) Branch hours as needed for Pain (scale 4-6) or Pain (scale 7-10). hyoscyamine 2023-[id number] 2 [facility] sulfate 2-08 tablets ity of (LEVSIN/SL) 00:00: under the [place] 0.125 mg 00 tongue Medical sublingual every 6 Branch tablet (six) hours as needed (Abdominal pain or cramping). ketorolac 2023-0 Yes [id number] 10mg Take 1 [facility] 10 mg 2-08 tablet by ity of tablet 00:00: mouth [place] 00 every 6 Medical (six) Branch hours as needed for Pain (scale 4-6) or Pain (scale 7-10). hyoscyamine 2023-0 3- No [id number] .25mg [address] 2 [facility] sulfate 2-08 03-06 tablets ity of (LEVSIN/SL) 00:00: 00:00 under the [place] 0.125 mg 00 :00 tongue Medical sublingual every 6 Branch tablet (six) hours as needed (Abdominal pain or cramping). ketorolac 2023-0 3- No [id number] 10mg Take 1 [facility] n[facility] 10 mg 2-08 03-06 tablet by ity of tablet 00:00: 00:00 mouth [place] 00 :00 every 6 Medical (six) Branch hours as needed for Pain (scale 4-6) or Pain (scale 7-10). hyoscyamine 2023-0 3- No [id number] .25mg Place 2 [facility] sulfate 2-08 03-06 tablets ity of (LEVSIN/SL) 00:00: 00:00 under the [place] 0.125 mg 00 :00 tongue Medical sublingual every 6 Branch tablet (six) hours as needed (Abdominal pain or cramping). ketorolac 2022-0 2022- No [id number] 10mg Take 1 [facility] nivers 10 mg 12-03- tablet by ity of tablet 00:00: 00:00 mouth [place] 00 :00 every 6 Medical (six) Branch hours as needed for Pain (scale 4-6) or Pain (scale 7-10). hyoscyamine 2022-0 2022- No [id number] .25mg Place 2 [facility] sulfate 12-03- tablets ity of (LEVSIN/SL) 00:00: 00:00 under the [place] 0.125 mg 00 :00 tongue Medical sublingual every 6 Branch tablet (six) hours as needed (Abdominal pain or cramping). ketorolac 2022-0 2022- No [id number] 10mg Take 1 [facility] n[facility] 10 mg 12-03- tablet by ity of tablet 00:00: 00:00 mouth [place] 00 :00 every 6 Medical (six) Branch hours as needed for Pain (scale 4-6) or Pain (scale 7-10). hyoscyamine 2022-0 2022- No [id number] .25mg Place 2 [facility] sulfate 12-03- tablets ity of (LEVSIN/SL) 00:00: 00:00 under the [place] 0.125 mg 00 :00 tongue Medical sublingual every 6 Branch tablet (six) hours as needed (Abdominal pain or cramping). ketorolac 2022-0 2022- No [id number] 10mg Take 1 [facility] n[facility] 10 mg 12-03- tablet by ity of tablet 00:00: 00:00 mouth [place] 00 :00 every 6 Medical (six) Branch hours as needed for Pain (scale 4-6) or Pain (scale 7-10). ondansetron 3-0 Yes [id number] 4mg Take 1 [facility] 4 mg 2-07 tablet by ity of disintegrat 00:00: mouth [place] ing tablet 00 every 8 Medica l (eight) Branch hours as needed for Nausea and Vomiting (N/V). traMADoL 50 3-0 Yes [id number] 50mg Take 1 Univ ers mg tablet 2-07 tablet by ity o f 00:00: mouth [place] 00 every 4 Medical (four) Branch hours as needed for Pain (scale 4-6). Indication s: acute pain ondansetron 2023-0 Yes [id number] 4mg Take 1 [facility] 4 mg 2-07 tablet by ity of disintegrat 00:00: mouth [place] ing tablet 00 every 8 Medica l (eight) Branch hours as needed for Nausea and Vomiting (N/V). traMADoL 50 2023-0 Yes [id number] 50mg Take 1 [facility] ers mg tablet 2-07 tablet by ity o f 00:00: mouth [place] 00 every 4 Medical (four) Branch hours as needed for Pain (scale 4-6). Indication s: acute pain ondansetron 2023-0 Yes [id number] 4mg Take 1 [facility] 4 mg 2-07 tablet by ity of disintegrat 00:00: mouth [place] ing tablet 00 every 8 Medica l (eight) Branch hours as needed for Nausea and Vomiting (N/V). traMADoL 50 2023-0 Yes [id number] 50mg Take 1 [facility] ers mg tablet 2-07 tablet by ity o f 00:00: mouth [place] 00 every 4 Medical (four) Branch hours as needed for Pain (scale 4-6). Indication s: acute pain ondansetron 2023-0 Yes [id number] 4mg Take 1 [facility] 4 mg 2-07 tablet by ity of disintegrat 00:00: mouth [place] ing tablet 00 every 8 Medica l (eight) Branch hours as needed for Nausea and Vomiting (N/V). traMADoL 50 2023-0 Yes [id number] 50mg Take 1 [facility] ers mg tablet 2-07 tablet by ity o f 00:00: mouth [place] 00 every 4 Medical (four) Branch hours as needed for Pain (scale 4-6). Indication s: acute pain ondansetron 2023-0 Yes [id number] 4mg Take 1 [facility] 4 mg 2-07 tablet by ity of disintegrat 00:00: mouth [place] ing tablet 00 every 8 Medica l (eight) Branch hours as needed for Nausea and Vomiting (N/V). traMADoL 50 2023-0 Yes [id number] 50mg Take 1 [facility] ers mg tablet 2-07 tablet by ity o f 00:00: mouth [place] 00 every 4 Medical (four) Branch hours as needed for Pain (scale 4-6). Indication s: acute pain ondansetron 2023-0 Yes [id number] 4mg Take 1 [facility] 4 mg 2-07 tablet by ity of disintegrat 00:00: mouth [place] ing tablet 00 every 8 Medica l (eight) Branch hours as needed for Nausea and Vomiting (N/V). traMADoL 50 2022-0 Yes [id number] 50mg Take 1 [facility] ers mg tablet 2-07 tablet by ity o f 00:00: mouth [place] 00 every 4 Medical (four) Branch hours as needed for Pain (scale 4-6). Indication s: acute pain ondansetron 2022-0 2022- No [id number] 4mg Take 1 [facility] 4 mg 2- 03-06 tablet by ity of disintegrat 00:00: 00:00 mouth [place] tablet 00 :00 every 8 Medica l (eight) Branch hours as needed for Nausea and Vomiting (N/V). traMADoL 50 2022-0 2022- No [id number] 50mg Take 1 [facility] vers mg tablet 2-04 27- tablet by ity of 00:00: 00:00 mouth [place] 00 :00 every 4 Medical (four) Branch hours as needed for Pain (scale 4-6). Indication s: acute pain ondansetron 2022-2022- No [id number] 4mg Take 1 [facility] 4 mg 2-04 27-06 tablet by ity of disintegrat 00:00: 00:00 mouth [place] tablet 00 :00 every 8 Medica l (eight) Branch hours as needed for Nausea and Vomiting (N/V). traMADoL 50 2022-0 2022- No [id number] 50mg Take 1 [facility] vers mg tablet 2- 03-06 tablet by ity of 00:00: 00:00 mouth [place] 00 :00 every 4 Medical (four) Branch hours as needed for Pain (scale 4-6). Indication s: acute pain ondansetron 2022-0 2022- No [id number] 4mg Take 1 [facility] 4 mg 2- 03-06 tablet by ity of disintegrat 00:00: 00:00 mouth [place] tablet 00 :00 every 8 Medica l (eight) Branch hours as needed for Nausea and Vomiting (N/V). traMADoL 50 2022-0 2022- No [id number] 50mg Take 1 [facility] vers mg tablet 2- 03-06 tablet by ity of 00:00: 00:00 mouth [place] 00 :00 every 4 Medical (four) Branch hours as needed for Pain (scale 4-6). Indication s: acute pain ondansetron 2022- No [id number] 4mg Take 1 [facility] 4 mg 12-02 tablet by ity of disintegrat 00:00: 00:00 mouth [place] tablet 00 :00 every 8 Medica l (eight) Branch hours as needed for Nausea and Vomiting (N/V). traMADoL 50 2022- No [id number] 50mg Take 1 [facility] vers mg tablet 12-02 tablet by ity of 00:00: 00:00 mouth [place] 00 :00 every 4 Medical (four) Branch hours as needed for Pain (scale 4-6). Indication s: acute pain Diethylprop Yes 1{tbl} Take 1 [facility] ion HCl 75 1-27 tablet by ity of mg TbSR 00:00: mouth in [place] the Medical morning. Branch Diethylprop 2022-0 Yes 1{tbl} Take 1 [facility] ion HCl 75 1-27 tablet by ity of mg TbSR 00:00: mouth in [place] the Medical morning. Branch Diethylprop 2022-0 Yes 1{tbl} Take 1 [facility] ion HCl 75 1-27 tablet by ity of mg TbSR 00:00: mouth in [place] the Medical morning. Branch Diethylprop 2022-0 Yes 1{tbl} Take 1 [facility] ion HCl 75 1-27 tablet by ity of mg TbSR 00:00: mouth in [place] the Medical morning. Branch Diethylprop 2022-0 Yes 1{tbl} Take 1 [facility] ion HCl 75 1-27 tablet by ity of mg TbSR 00:00: mouth in [place] the Medical morning. Branch Diethylprop 2022-0 Yes 1{tbl} Take 1 [facility] [place] HCl 75 1-27 tablet by ity of mg TbSR 00:00: mouth in [place] the Medical morning. Branch Diethylprop 2022-0 Yes 1{tbl} Take 1 [facility] ion HCl 75 1-27 tablet by ity of mg TbSR 00:00: mouth in [place] the Medical morning. Branch Diethylprop 2022-0 Yes 1{tbl} Take 1 [facility] ion HCl 75 1-27 tablet by ity of mg TbSR 00:00: mouth in [place] 00 the Medical morning. Branch Diethylprop Yes 1{tbl} Take 1 [facility] ion HCl 75 1-27 tablet by ity of mg TbSR 00:00: mouth in [place] 00 the Medical morning. Branch Diethylprop Yes 1{tbl} Take 1 [facility] ion HCl 75 1-27 tablet by ity of mg TbSR 00:00: mouth in [place] 00 the Medical morning. Branch Diethylprop Yes 1{tbl} Take 1 [facility] ion HCl 75 1-27 tablet by ity of mg TbSR 00:00: mouth in [place] 00 the Medical morning. Branch metFORMIN 2021-[address] [facility] (GLUCOPHAGE 2-22 Tablet(s) Paresh es -XR) 500 MG 00:00: By Mouth Me dical 24 hr 00 Every Center tablet Evening diethylprop 2021-10 Yes 1{tbl} QD Take [address] [facility] [address] [facility] ion 75 mg 2-22 tablet by [facility] 00:00: mouth Medical 00 daily. Center maalox:diph 2021- No 15mL 15 mL, Uni vers enhydrAMINE 07-16 Oral, ity of :lidocaine 10:45: 10:48 ONCE, 1 [place] 2 % viscous 00 :00 dose, On Medi [place]ell[place] 1:1:1 Wed Branch ([facility] 07/16/22 at [facility]) 0545, [place] oral suspension 15 mL NaCl 0.9% 2021- No 1000mL at 999 Uni vers (NS) bolus 07-16 mL/hr, ity of infusion 10:45: 11:19 1,000 mL, [place] 1,000 mL 00 :00 IV Medical Infusion, Branch ONCE, 1 dose, On Thu07/16/22 at 0545, STAT FENTanyl PF 2021- No 75ug 75 mcg, [facility] (SUBLIMAZE 07-16 Slow IV ity o f (PF)) 10:45: 10:00 Push, [place] injection 00 :00 ONCE, 1 Medical 75 mcg dose, On Branch 07/16/22 at 0545, STAT ondansetron 2022-0 2022- No 4mg 4 mg, Slow [facility] (ZOFRAN 07-16 IV Push, ity of (PF)) 10:45: 10:00 ONCE, 1 [place] injection 4 00 :00 dose, On Medi [place]ellie mg Wed Branch 07/16/22 at 0545, [place] sucralfate 2021-0 Yes [id number] 1g Take 1 U nivers 1 gram 9-21 tablet by ity of tablet 00:00: mouth [place] 00 before Medical meals and Branch at bedtime. ondansetron 2021-0 Yes [id number] 4mg Take 1 [facility] 4 mg 9-21 tablet by ity of disintegrat 00:00: mouth [place] ing tablet 00 every 4 Medica l (four) Branch hours as needed for Nausea and Vomiting (N/V). famotidine 2021-0 Yes [id number] 20mg Take 1 [facility] n[facility] 20 mg 9-21 tablet by ity of tablet 00:00: mouth in [place] 00 the Medical morning Branch and 1 tablet in the evening. sucralfate 2-0 Yes [id number] 1g Take 1 U nivers 1 gram 9-21 tablet by ity of tablet 00:00: mouth [place] 00 before Medical meals and Branch at bedtime. ondansetron 2-0 Yes [id number] 4mg Take 1 [facility] 4 mg 9-21 tablet by ity of disintegrat 00:00: mouth [place] ing tablet 00 every 4 Medica l (four) Branch hours as needed for Nausea and Vomiting (N/V). famotidine 2021-0 Yes [id number] 20mg Take 1 U nivers 20 mg 9-21 tablet by ity of tablet 00:00: mouth in [place] 00 the Medical morning Branch and 1 tablet in the evening. sucralfate 2-0 Yes [id number] 1g Take 1 U nivers 1 gram 9-21 tablet by ity of tablet 00:00: mouth [place] 00 before Medical meals and Branch at bedtime. ondansetron 2-0 Yes [id number] 4mg Take 1 [facility] 4 mg 9-21 tablet by ity of disintegrat 00:00: mouth [place] ing tablet 00 every 4 Medica l (four) Branch hours as needed for Nausea and Vomiting (N/V). famotidine 2-0 Yes [id number] 20mg Take 1 [facility] nivers 20 mg 9-21 tablet by ity of tablet 00:00: mouth in [place] 00 the Medical morning Branch and 1 tablet in the evening. sucralfate 2022-0 Yes [id number] 1g Take 1 U nivers 1 gram 9-21 tablet by ity of tablet 00:00: mouth [place] 00 before Medical meals and Branch at bedtime. ondansetron 2022-0 Yes [id number] 4mg Take 1 [facility] 4 mg 9-21 tablet by ity of disintegrat 00:00: mouth [place] ing tablet 00 every 4 Medica l (four) Branch hours as needed for Nausea and Vomiting (N/V). famotidine 2022-0 Yes [id number] 20mg Take 1 U nivers 20 mg 9-21 tablet by ity of tablet 00:00: mouth in [place] 00 the Medical morning Branch and 1 tablet in the evening. sucralfate 2022-0 Yes [id number] 1g Take 1 U nivers 1 gram 9-21 tablet by ity of tablet 00:00: mouth [place] 00 before Medical meals and Branch at bedtime. ondansetron 2022-0 Yes [id number] 4mg Take 1 [facility] 4 mg 9-21 tablet by ity of disintegrat 00:00: mouth [place] ing tablet 00 every 4 Medica l (four) Branch hours as needed for Nausea and Vomiting (N/V). famotidine 2022-0 Yes [id number] 20mg Take 1 U nivers 20 mg 9-21 tablet by ity of tablet 00:00: mouth in [place] 00 the Medical morning Branch and 1 tablet in the evening. sucralfate 2022-0 Yes [id number] 1g Take 1 U nivers 1 gram 9-21 tablet by ity of tablet 00:00: mouth [place] 00 before Medical meals and Branch at bedtime. ondansetron 2022-0 Yes [id number] 4mg Take 1 [facility] 4 mg 9-21 tablet by ity of disintegrat 00:00: mouth [place] ing tablet 00 every 4 Medica l (four) Branch hours as needed for Nausea and Vomiting (N/V). famotidine 2022-0 Yes [id number] 20mg Take 1 U nivers 20 mg 9-21 tablet by ity of tablet 00:00: mouth in [place] 00 the Medical morning Branch and 1 tablet in the evening. sucralfate 2021-0 Yes [id number] 1g Take 1 U nivers 1 gram 9-21 tablet by ity of tablet 00:00: mouth [place] 00 before Medical meals and Branch at bedtime. ondansetron 2021-0 Yes [id number] 4mg Take 1 [facility] 4 mg 9-21 tablet by ity of disintegrat 00:00: mouth [place] ing tablet 00 every 4 Medica l (four) Branch hours as needed for Nausea and Vomiting (N/V). famotidine 2021-0 Yes [id number] 20mg Take 1 U nivers 20 mg 9-21 tablet by ity of tablet 00:00: mouth in [place] 00 the Medical morning Branch and 1 tablet in the evening. sucralfate 2021-0 2022- No [id number] 1g Take 1 [facility] 1 gram 9-21 03-06 tablet by ity of tablet 00:00: 00:00 mouth [place] 00 :00 before Medical meals and Branch at bedtime. ondansetron 2021-0 2022- No [id number] 4mg Take 1 [facility] 4 mg 9-21 03-06 tablet by ity of disintegrat 00:00: 00:00 [place] tablet 00 :00 every 4 Medica l (four) Branch hours as needed for Nausea and Vomiting (N/V). famotidine 2021-0 2022- No [id number] 20mg Take 1 [facility] 20 mg 9-21 03-06 tablet by ity of tablet 00:00: 00:00 mouth in [place] 00 :00 the Medical morning Branch and 1 tablet in the evening. sucralfate 2021-0 2022- No [id number] 1g Take 1 [facility] 1 gram 9-21 03-06 tablet by ity of tablet 00:00: 00:00 mouth [place] 00 :00 before Medical meals and Branch at bedtime. ondansetron 2-0 2022- No [id number] 4mg Take 1 [facility] 4 mg 9-21 03-06 tablet by ity of disintegrat 00:00: 00:00 mouth [place] tablet 00 :00 every 4 Medica l (four) Branch hours as needed for Nausea and Vomiting (N/V). famotidine 2021-0 2022- No [id number] 20mg Take 1 [facility] 20 mg 9-21 03-06 tablet by ity of tablet 00:00: 00:00 mouth in [place] 00 :00 the Medical morning Branch and 1 tablet in the evening. sucralfate 2022- No [id number] 1g Take 1 [facility] 1 gram 07-16- tablet by ity of tablet 00:00: 00:00 mouth [place] 00 :00 before Medical meals and Branch at bedtime. ondansetron 2021-2022- No [id number] 4mg Take 1 [facility] 4 mg 07-16- tablet by ity of disintegrat 00:00: 00:00 [place] tablet 00 :00 every 4 Medica l (four) Branch hours as needed for Nausea and Vomiting (N/V). famotidine 2022- No [id number] 20mg Take 1 [facility] 20 mg 07-16- tablet by ity of tablet 00:00: 00:00 mouth in [place] 00 :00 the Medical morning Branch and 1 tablet in the evening. sucralfate 2022- No [id number] 1g Take 1 [facility] 1 gram 07-16 tablet by ity of tablet 00:00: 00:00 mouth [place] 00 :00 before Medical meals and Branch at bedtime. ondansetron 2021-2022- No [id number] 4mg Take 1 [facility] 4 mg 07-16- tablet by ity of disintegrat 00:00: 00:00 mouth [place] tablet 00 :00 every 4 Medica l (four) Branch hours as needed for Nausea and Vomiting (N/V). famotidine 2022- No [id number] 20mg Take 1 [facility] 20 mg 07-16- tablet by ity of tablet 00:00: 00:00 mouth in [place] 00 :00 the Medical morning Branch and 1 tablet in the evening. phentermine 2020-0 Yes Take by Uni vers HCl 9-20 mouth. ity of (PHENTERMIN 14:56: [place] E ORAL) 57 Medical Branch phentermine 2020-0 Yes Take by Uni vers HCl 9-20 mouth. ity of (PHENTERMIN 14:56: [place] E ORAL) 57 Medical Branch phentermine 2020-0 Yes Take by Uni vers HCl 9-20 mouth. ity of (PHENTERMIN 14:56: [place] E ORAL) 57 Medical Branch phentermine 0 Yes Take by Uni vers HCl 9-20 mouth. ity of (PHENTERMIN 14:56: [place] E ORAL) 57 Medical Branch phentermine 0 Yes Take by Uni vers HCl 9-20 mouth. ity of (PHENTERMIN 14:56: [place] E ORAL) 57 Medical Branch phentermine 0 Yes Take by Uni vers HCl 9-20 mouth. ity of (PHENTERMIN 14:56: [place] E ORAL) 57 Medical Branch phentermine 0 Yes Take by Uni vers HCl 9-20 mouth. ity of (PHENTERMIN 14:56: [place] E ORAL) 57 Medical Branch phentermine 0 Yes Take by Uni vers HCl 9-20 mouth. ity of (PHENTERMIN 14:56: [place] E ORAL) 57 [facility] Branch phentermine 0 Yes Take by Uni vers HCl 9-20 mouth. ity of (PHENTERMIN 14:56: [place] E ORAL) 57 [facility] omeprazole 0 Yes 20mg Take 20 mg U nivers 20 mg 9-14 by mouth ity of tablet 10:06: daily. [address] omeprazole 0 Yes 20mg Take 20 mg U nivers 20 mg 9-14 by mouth ity of tablet 10:06: daily. [address] omeprazole 0 Yes 20mg Take 20 mg U nivers 20 mg 9-14 by mouth ity of tablet 10:06: daily. [address] omeprazole 2020-0 Yes 20mg Take 20 mg U nivers 20 mg 9-14 by mouth ity of tablet 10:06: daily. [address] omeprazole 0 Yes 20mg Take 20 mg U nivers 20 mg 9-14 by mouth ity of tablet 10:06: daily. [address] omeprazole 2020-0 Yes 20mg Take 20 mg U nivers 20 mg 9-14 by mouth ity of tablet 10:06: daily. [address] omeprazole 2020-0 Yes 20mg Take 20 mg U nivers 20 mg 9-14 by mouth ity of tablet 10:06: daily. [address] omeprazole 2020-0 Yes 20mg Take 20 mg U nivers 20 mg 9-14 by mouth ity of tablet 10:06: daily. [place] [id number] Medical Branch omeprazole 2020-0 Yes 20mg Take 20 mg U nivers 20 mg 9-14 by mouth ity of tablet 10:06: daily. [address] Branch ibuprofen 2020-0 Yes [id number] 600mg Take 1 Univers 600 mg 9-14 [id number] tablet by ity of tablet 00:00: mouth [place] 00 every 6 Medical (six) Branch hours as needed for Pain (scale 4-6). ibuprofen 2020-0 Yes [id number] 600mg Take 1 Univers 600 mg 9-14 [id number] tablet by ity of tablet 00:00: mouth [place] 00 every 6 Medical (six) Branch hours as needed for Pain (scale 4-6). ibuprofen 2020-0 Yes [id number] 600mg Take 1 Univers 600 mg 9-14 [id number] tablet by ity of tablet 00:00: mouth [place] 00 every 6 Medical (six) Branch hours as needed for Pain (scale 4-6). ibuprofen 2020-0 Yes [id number] 600mg Take 1 Univers 600 mg 9-14 [id number] tablet by ity of tablet 00:00: mouth [place] 00 every 6 Medical (six) Branch hours as needed for Pain (scale 4-6). ibuprofen 2020-0 Yes [id number] 600mg Take 1 Univers 600 mg 9-14 [id number] tablet by ity of tablet 00:00: mouth [place] 00 every 6 Medical (six) Branch hours as needed for Pain (scale 4-6). ibuprofen 2020-0 Yes [id number] 600mg Take 1 Univers 600 mg 9-14 [id number] tablet by ity of tablet 00:00: mouth [place] 00 every 6 Medical (six) Branch hours as needed for Pain (scale 4-6). ibuprofen 2020-0 Yes [id number] 600mg Take 1 Univers 600 mg 9-14 [id number] tablet by ity of tablet 00:00: mouth [place] 00 every 6 Medical (six) Branch hours as needed for Pain (scale 4-6). ibuprofen 2020-0 Yes [id number] 600mg Take 1 Univers 600 mg 9-14 [id number] tablet by ity of tablet 00:00: mouth [place] 00 every 6 Medical (six) Branch hours as needed for Pain (scale 4-6). ibuprofen 2020-0 Yes [id number] 600mg Take 1 Univers 600 mg 9-14 [id number] tablet by ity of tablet 00:00: mouth [place] 00 every 6 Medical (six) Branch hours as needed for Pain (scale 4-6). ibuprofen 2022- No [id number] 600mg Take 1 Univers 600 mg 914 12-29 [id number] tablet by ity o f tablet 00:00: 00:00 mouth [place] 00 :00 every 6 Medical (six) Branch hours as needed for Pain (scale 4-6). ibuprofen 2022- No [id number] 600mg Take 1 Univers 600 mg 07-09 [id number] tablet by ity o f tablet 00:00: 00:00 mouth [place] 00 :00 every 6 Medical (six) Branch hours as needed for Pain (scale 4-6). ibuprofen 2022- No [id number] 600mg Take 1 Univers 600 mg 07-09 [id number] tablet by ity o f tablet 00:00: 00:00 mouth [place] 00 :00 every 6 Medical (six) Branch hours as needed for Pain (scale 4-6). ibuprofen 2022- No [id number] 600mg Take 1 Univers 600 mg 07-09 [id number] tablet by ity o f tablet 00:00: 00:00 mouth [place] 00 :00 every 6 Medical (six) Branch hours as needed for Pain (scale 4-6). losartan 25 Yes 25mg Take 25 mg Univers mg tablet 6-28 by mouth ity of 00:00: daily. [place] [facility] losartan 25 Yes 25mg Take 25 mg Univers mg tablet 6-28 by mouth ity of 00:00: daily. [place] [facility] losartan 25 0 Yes 25mg Take 25 mg Univers mg tablet 6-28 by mouth ity of 00:00: daily. [place] [facility] losartan 25 0 Yes 25mg Take 25 mg Univers mg tablet 6-28 by mouth ity of 00:00: daily. [place] [facility] losartan 25 0 Yes 25mg Take 25 mg Univers mg tablet 6-28 by mouth ity of 00:00: daily. [place] [facility] losartan 25 Yes 25mg Take 25 mg Univers mg tablet 6-28 by mouth ity of 00:00: daily. [place] [facility] losartan 25 0 Yes 25mg Take 25 mg Univers mg tablet 6-28 by mouth ity of 00:00: daily. [place] [facility] losartan 25 0 Yes 25mg Take 25 mg Univers mg tablet 6-28 by mouth ity of 00:00: daily. [place] [facility] losartan 25 0 Yes 25mg Take 25 mg Univers mg tablet 6-28 by mouth ity of 00:00: daily. [place] [facility] losartan 25 2020-0 2023- No 25mg Take 1 Uni vers mg tablet 6- 03-06 tablet by ity of 00:00: 00:00 mouth in [place] 00 :00 the Medical morning. Branch losartan 25 2020-0 3- No 25mg Take 1 Uni vers mg tablet 04-22-06 tablet by ity of 00:00: 00:00 mouth in [place] 00 :00 the Medical morning. Branch losartan 25 2020-0 2023- No 25mg Take 1 Uni vers mg tablet -20 01-06 tablet by ity of 00:00: 00:00 mouth in [place] 00 :00 the Medical morning. Branch losartan 25 2020-0 3- No 25mg Take 1 Uni vers mg tablet 04-22-06 tablet by ity of 00:00: 00:00 mouth in [place] 00 :00 the Medical morning. Branch butalbital- Yes 1{tbl} Take 1 Un saji acetaminoph 7-14 tablet by ity of en-caff 00:00: mouth [place] (ESGIC) 00 every 4 Medical 50-325-40 (four) Branch mg tablet hours as needed for Headache. butalbital- Yes 1{tbl} Take 1 Un saji acetaminoph 7-14 tablet by ity of en-caff 00:00: mouth [place] (ESGIC) 00 every 4 Medical 50-325-40 (four) Branch mg tablet hours as needed for Headache. butalbital- Yes 1{tbl} Take 1 Un saji acetaminoph 7-14 tablet by ity of en-caff 00:00: mouth [place] (ESGIC) 00 every 4 Medical 50-325-40 (four) Branch mg tablet hours as needed for Headache. butalbital- Yes 1{tbl} Take 1 Un saji acetaminoph 7-14 tablet by ity of en-caff 00:00: mouth [place] (ESGIC) 00 every 4 Medical 50-325-40 (four) Branch mg tablet hours as needed for Headache. butalbital Yes 1{tbl} Take 1 Un saji acetaminoph 7-14 tablet by ity of en-caff 00:00: mouth [place] (ESGIC) 00 every 4 Medical 50-325-40 (four) Branch mg tablet hours as needed for Headache. butalbital Yes 1{tbl} Take 1 Un saji acetaminoph 7-14 tablet by ity of en-caff 00:00: mouth [place] (ESGIC) 00 every 4 Medical 50-325-40 (four) Branch mg tablet hours as needed for Headache. butalbital Yes 1{tbl} Take 1 Un saji acetaminoph 7-14 tablet by ity of en-caff 00:00: mouth [place] (ESGIC) 00 every 4 Medical 50-325-40 (four) Branch mg tablet hours as needed for Headache. butalbital Yes 1{tbl} Take 1 Un saji acetaminoph 7-14 tablet by ity of en-caff 00:00: mouth [place] (ESGIC) 00 every 4 Medical 50-325-40 (four) Branch mg tablet hours as needed for Headache. butalbital Yes 1{tbl} Take 1 Un saji acetaminoph 7-14 tablet by ity of en-caff 00:00: mouth [place] (ESGIC) 00 every 4 Medical 50-325-40 (four) Branch mg tablet hours as needed for Headache. butalbital2022- No 1{tbl} Take 1 U nivers acetaminoph 7-14 03-06 tablet by it y of en-caff 00:00: 00:00 mouth [place] (ESGIC) 00 :00 every 4 Medical 50-325-40 (four) Branch mg tablet hours as needed for Headache. butalbital2022- No 1{tbl} Take 1 U nivers acetaminoph 7-14 03-06 tablet by it y of en-caff 00:00: 00:00 mouth [place] (ESGIC) 00 :00 every 4 Medical 50-325-40 (four) Branch mg tablet hours as needed for Headache. butalbital2022- No 1{tbl} Take 1 U nivers acetaminoph 7-14 03-06 tablet by it y of en-caff 00:00: 00:00 mouth [place] (ESGIC) 00 :00 every 4 Medical 50-325-40 (four) Branch mg tablet hours as needed for Headache. butalbital2022- No 1{tbl} Take 1 U nivers acetaminoph 7-14 -06 tablet by it y of en-caff 00:00: 00:00 mouth [place] (ESGIC) 00 :00 every 4 Medical 50-325-40 (four) Branch mg tablet hours as needed for Headache. Immunizations Ordered Filled Immunization Date Status Comments [facility] e Immunization Name Name Influenza Virus 2013-08-26 Completed Universit y of Vaccine 00:00:00 [place] [facility] Influenza Virus 2013-08-26 Completed Universit y of Vaccine 00:00:00 [place] [facility] Influenza Virus 2013-08-26 Completed Universit y of Vaccine 00:00:00 [place] [facility] Influenza Virus 2013-08-26 Completed Universit y of Vaccine 00:00:00 [place] [facility] Influenza Virus 2013-08-26 Completed Universit y of Vaccine 00:00:00 [place] [facility] Influenza Virus 2013-08-26 Completed Universit y of Vaccine 00:00:00 [place] [facility] Influenza Virus 2013-08-26 Completed Universit y of Vaccine 00:00:00 [place] [facility] Influenza Virus 2013-08-26 Completed Universit y of Vaccine 00:00:00 [place] [facility] Influenza Virus 2013-08-26 Completed Universit y of Vaccine 00:00:00 [place] [facility] Influenza Virus 2013-08-26 Completed Universit y of Vaccine 00:00:00 [place] [facility] Influenza Virus 2013-08-26 Completed Universit y of Vaccine 00:00:00 [place] [facility] Influenza Virus 2013-08-26 Completed Universit y of Vaccine 00:00:00 [place] [facility] Influenza Virus 2013-08-26 Completed Universit y of Vaccine 00:00:00 [place] [facility] Influenza Virus 2013-08-26 Completed Universit y of Vaccine 00:00:00 [place] [facility] Influenza Virus 2013-08-26 Completed Universit y of Vaccine 00:00:00 [place] [facility] Influenza Virus 2013-08-26 Completed Universit y of Vaccine 00:00:00 [place] [facility] Influenza Virus 2013-08-26 Completed Universit y of Vaccine 00:00:00 [facility] [place] [facility] Influenza Virus 2013-08-26 Completed Universit y of Vaccine 00:00:00 [place] [facility] Influenza Virus 2013-08-26 Completed Universit y of Vaccine 00:00:00 [place] [facility] Influenza Virus 2013-08-26 Completed Universit y of Vaccine 00:00:00 [facility] [place] [facility] Rubella 2009-06-07 Completed University of 00:00:00 [place] [facility] Rubella 2009-06-07 Completed University of 00:00:00 [place] [facility] Rubella 2009-06-07 Completed University of 00:00:00 [place] [facility] Rubella 2009-06-07 Completed University of 00:00:00 [place] [facility] Rubella 2009-06-07 Completed University of 00:00:00 [facility] [place] [facility] Rubella 2009-06-07 Completed University of 00:00:00 [facility] [place] [facility] Rubella 2009-06-07 Completed University of 00:00:00 [place] [facility] Rubella 2009-06-07 Completed University of 00:00:00 [place] [facility] Rubella 2009-06-07 Completed University of 00:00:00 [place] [facility] Rubella 2009-06-07 Completed University of 00:00:00 [place] [facility] Rubella 2009-06-07 Completed University of 00:00:00 [place] [facility] Rubella 2009-06-07 Completed University of 00:00:00 [facility] [place] [facility] Rubella 2009-06-07 Completed University of 00:00:00 [facility] [place] [facility] Rubella 2009-06-07 Completed University of 00:00:00 [place] [facility] Rubella 2009-06-07 Completed University of 00:00:00 [facility] [place] [facility] Rubella 2009-06-07 Completed University of 00:00:00 [place] [facility] Rubella 2009-06-07 Completed University of 00:00:00 [place] [facility] Rubella 2009-06-07 Completed University of 00:00:00 [facility] [place] [facility] Rubella 2009-06-07 Completed University of 00:00:00 [facility] [place] [facility] Rubella 2009-06-07 Completed University of 00:00:00 [place] [facility] Td 2004-06-17 Completed University of 00:00:00 [place] [facility] Td 2004-06-17 Completed University of 00:00:00 [place] [facility] Td 2004-06-17 Completed University of 00:00:00 [place] [facility] TD, NOS 2004-06-17 Completed University of 00:00:00 [place] [facility] TD, NOS 2004-06-17 Completed University of 00:00:00 [place] [facility] TD, NOS 2004-06-17 Completed University of 00:00:00 [place] [facility] TD, NOS 2004-06-17 Completed University of 00:00:00 [place] [facility] TD, NOS 2004-06-17 Completed University of 00:00:00 [place] [facility] TD, NOS 2004-06-17 Completed University of 00:00:00 [place] [facility] TD, NOS 2004-06-17 Completed University of 00:00:00 [place] [facility] TD, NOS 2004-06-17 Completed University of 00:00:00 [place] [facility] TD, NOS 2004-06-17 Completed University of 00:00:00 [place] [facility] TD, NOS 2004-06-17 Completed University of 00:00:00 [place] [facility] TD, NOS 2004-06-17 Completed University of 00:00:00 [place] [facility] TD, NOS 2004-06-17 Completed University of 00:00:00 [place] [facility] TD, NOS 2004-06-17 Completed University of 00:00:00 [place] [facility] TD, NOS 2004-06-17 Completed University of 00:00:00 [place] [facility] TD, NOS 2004-06-17 Completed University of 00:00:00 [place] [facility] TD, NOS 2004-06-17 Completed University of 00:00:00 [place] [facility] TD, NOS 2004-06-17 Completed University of 00:00:00 [place] [facility] Vital Signs Vital Name Observation Time Observation Value Comments Source Systolic blood 2023-01-30 05:30:00 128 mm[Hg] Univer sity of pressure [place] [facility] Diastolic blood 2023-01-30 05:30:00 75 mm[Hg] Unive rsity of pressure [place] [facility] Heart rate 2023-01-30 05:30:00 84 /min Universi of [place] [facility] Respiratory rate 2023-01-30 05:30:00 20 /min [facility] O[facility] saturation in 2023-01-30 05:30:00 100 /min [facility] Arterial blood by [facility] Pulse oximetry Branch Body temperature 2023-01-30 02:33:00 36.78 Haydee Univ ersity of [place] [facility] Body height 2023-01-30 02:33:00 165.1 cm Universi ty of [place] [facility] Body weight 2023-01-30 02:33:00 136.986 kg Universi ty of [place] [facility] BMI 2023-01-30 02:33:00 50.26 kg/m2 Universi ty of [place] [facility] Systolic blood 2023-01-12 19:01:00 131 mm[Hg] Univer sity of pressure [place] [facility] Diastolic blood 2023-01-12 19:01:00 76 mm[Hg] Unive rsity of pressure [place] [facility] Heart rate 2023-01-12 19:01:00 108 /min Universi ty of [place] [facility] Body temperature 2023-01-12 19:01:00 36.72 Haydee Univ ersity of [place] [facility] Respiratory rate 2023-01-12 19:01:00 18 /min Univ ersity of [place] [facility] Body height 2023-01-12 19:01:00 165.1 cm Universi ty of [place] [facility] Body weight 2023-01-12 19:01:00 137.077 kg Universi ty of [place] [facility] BMI 2023-01-12 19:01:00 50.29 kg/m2 Universi ty of [place] [facility] Oxygen saturation in 2023-01-12 19:01:00 99 /min University of Arterial blood by [place] [facility] Pulse oximetry Branch Systolic blood 2022-12-31 21:00:00 142 mm[Hg] Univer sity of pressure [place] [facility] Diastolic blood 2022-12-31 21:00:00 76 mm[Hg] Unive rsity of pressure [place] [facility] Heart rate 2022-12-31 21:00:00 80 /min Universi ty of [place] [facility] Respiratory rate 2022-12-31 21:00:00 21 /min Univ ersity of [place] [facility] Oxygen saturation in 2022-12-31 21:00:00 99 /min University of Arterial blood by [place] [employer] Pulse oximetry Branch Body temperature 2022-12-31 19:26:00 37.11 Haydee Univ ersity of [place] [facility] Body height 2022-12-31 19:26:00 165.1 cm Universi ty of [place] [facility] Body weight 2022-12-31 19:26:00 134.718 kg Universi ty of [place] [facility] BMI 2022-12-31 19:26:00 49.42 kg/m2 Universi ty of [place] [facility] Systolic blood 2022-12-29 18:40:00 121 mm[Hg] Univer sity of pressure [place] [facility] Diastolic blood 2022-12-29 18:40:00 69 mm[Hg] Unive rsity of pressure [place] [facility] Heart rate 2022-12-29 18:40:00 77 /min Universi ty of [place] [facility] Respiratory rate 2022-12-29 18:40:00 11 /min Univ ersity of [place] [facility] Oxygen saturation in 2022-12-29 18:40:00 98 /min University of Arterial blood by [employer] Pulse oximetry Branch Body temperature 2022-12-29 16:49:00 36.39 Haydee Univ ersity of [place] [facility] Body height 2022-12-29 13:47:00 165.1 cm Universi ty of [place] [facility] Body weight 2022-12-29 13:47:00 134.8 kg Universi ty of [place] [facility] BMI 2022-12-29 13:47:00 49.45 kg/m2 Universi ty of [place] [facility] Body height 2022-12-29 13:47:00 165.1 cm Universi ty of [place] [facility] Body weight 2022-12-29 13:47:00 134.8 kg Universi ty of [place] [facility] BMI 2022-12-29 13:47:00 49.45 kg/m2 Universi ty of [place] [facility] Systolic blood 2022-12-29 13:25:00 133 mm[Hg] Univer sity of pressure [place] [facility] Diastolic blood 2022-12-29 13:25:00 68 mm[Hg] Unive rsity of pressure [place] [facility] Heart rate 2022-12-29 13:25:00 80 /min Universi ty of [place] [facility] Body temperature 2022-12-29 13:25:00 36.39 Haydee Univ ersity of [place] [facility] Respiratory rate 2022-12-29 13:25:00 17 /min Univ ersity of [place] [facility] Oxygen saturation in 2022-12-29 13:25:00 100 /min University of Arterial blood by [employer]ell[facility] Pulse oximetry Branch Systolic blood 2022-12-08 21:38:00 135 mm[Hg] Univer sity of pressure [place] [facility] Diastolic blood 2022-12-08 21:38:00 84 mm[Hg] Unive rsity of pressure [place] [facility] Heart rate 2022-12-08 21:38:00 105 /min Universi ty of [place] [facility] Body temperature 2022-12-08 21:38:00 36.89 Haydee Univ ersity of [place] [facility] Respiratory rate 2022-12-08 21:38:00 18 /min Univ ersity of [place] [facility] Body height 2022-12-08 21:38:00 165.1 cm Universi ty of [place] [facility] Body weight 2022-12-08 21:38:00 134.809 kg Universi ty of [place] [facility] BMI 2022-12-08 21:38:00 49.46 kg/m2 Universi ty of [place] [facility] Oxygen saturation in 2022-12-08 21:38:00 98 /min University of Arterial blood by [facility] Pulse oximetry Branch Systolic blood 2022-12-03 15:10:21 112 mm[Hg] Univer sity of pressure [place] [facility] Diastolic blood 2022-12-03 15:10:21 80 mm[Hg] Unive rsity of pressure [place] [facility] Heart rate 2022-12-03 15:10:21 78 /min Universi ty of [place] [facility] Body temperature 2022-12-03 15:10:21 36.67 Haydee Univ ersity of [place] [facility] Respiratory rate 2022-12-03 15:10:21 16 /min Univ ersity of [place] [facility] Oxygen saturation in 2022-12-03 15:10:21 99 /min University of Arterial blood by [facility] Pulse oximetry Branch Body weight 2022-12-03 13:39:00 134.809 kg Universi ty of [place] [facility] BMI 2022-12-03 13:39:00 49.46 kg/m2 Universi ty of [place] [facility] Systolic blood 2022-12-03 02:00:00 119 mm[Hg] Univer sity of pressure [place] [facility] Diastolic blood 2022-12-03 02:00:00 88 mm[Hg] Unive rsity of pressure [place] [facility] Heart rate 2022-12-03 02:00:00 84 /min Universi ty of [place] [facility] Respiratory rate 2022-12-03 02:00:00 18 /min Univ ersity of [place] [facility] Oxygen saturation in 2022-12-03 02:00:00 100 /min University of Arterial blood by [facility] Pulse oximetry Branch Body temperature 2022-12-02 22:34:00 36.39 Haydee Univ ersity of [place] [facility] Body height 2022-12-02 22:34:00 165.1 cm Universi ty [facility] [place] [facility] Body weight 2022-12-02 22:34:00 133.358 kg [facility]i ty [facility] [place] [facility] BMI 2022-12-02 22:34:00 48.92 kg/m2 [facility] [place] [facility] HEIGHT 2022-11-05 10:15:00 165.1 cm WEIGHT 2022-11-05 10:15:00 134.945 kg HEIGHT 2022-11-05 10:15:00 165.1 cm WEIGHT 2022-11-05 10:15:00 134.945 kg Systolic blood 2022-07-16 11:00:00 123 mm[Hg] Univer sity of pressure [place] [facility] Diastolic blood 2022-07-16 11:00:00 71 mm[Hg] Unive rsity of pressure [place] [facility] Heart rate 2022-07-16 11:00:00 71 /min Universi ty of [place] [facility] Respiratory rate 2022-07-16 11:00:00 16 /min Univ ersity of [place] [facility] Oxygen saturation in 2022-07-16 11:00:00 99 /min University of Arterial blood by [facility] Pulse oximetry Branch Body temperature 2022-07-16 09:33:00 37.17 Haydee Univ ersity of [place] [facility] Body height 2022-07-16 09:33:00 165.1 cm Universi ty [facility] [place] [facility] Body weight 2022-07-16 09:33:00 133.358 kg [facility] ty [facility] [place] [facility] BMI 2022-07-16 09:33:00 48.92 kg/m2 [facility] ty [facility] [place] [facility] Systolic blood 2021-07-17 14:24:00 119 mm[Hg] Univer sity of pressure [place] [facility] Diastolic blood 2021-07-17 14:24:00 75 mm[Hg] Unive rsity of pressure [place] [facility] Heart rate 2021-07-17 14:24:00 100 /min [facility] Respiratory rate 2021-07-17 14:24:00 20 /min [facility] Body height 2021-07-17 14:24:[address] [facility] Body weight 2021-07-17 14:24:[address] [facility] BMI 2021-07-17 14:24:00 49.09 kg/m2 [facility] Oxygen saturation in 2021-07-17 14:24:00 100 /min [facility] Arterial blood by [facility] Pulse oximetry Branch Diastolic blood 2022-11-05 10:15:00 84 mm[Hg] [facility] Heart rate 2022-11-05 10:15:00 85 /min [facility] Body temperature 2022-11-05 10:15:00 36.56 Haydee [facility] [place] Body height 2022-11-05 10:15:00 165.1 cm [facility] Body weight 2022-11-05 10:15:00 134.945 kg [facility] BMI 2022-11-05 10:15:00 49.51 kg/m2 [facility] Systolic blood 2022-11-05 10:15:00 137 mm[Hg] [facility] Procedures Procedure Date / Time Performing Clinician Source Performed LACTIC ACID WHOLE BLOOD 2023-01-30 02:44:00 Kiah Barros [facility] LIPASE 2023-01-30 02:43:00 Kiah Barros [facility] COMP. METABOLIC PANEL 2023-01-30 02:43:00 Kiah Barros [facility] ([id number]) [facility] CBC WITH DIFF 2023-01-30 02:43:00 Kiah Barros [facility] PROTHROMBIN TIME / INR 2023-01-30 02:43:00 Kiah Barros [facility] ACTIVATED PARTIAL THRMPLAS 2023-01-30 02:43[facility]00 [facility]23-01-30 02:42:[address] [facility] CONSENT/REFUSAL FOR 2023-01-30 02:22:51 [facility] DIAGNOSIS AND TREATMENT [facility] LIPASE 2022-12-31 20:00:00 [facility] COMP. METABOLIC PANEL 2022-12-31 20:00:00 [place] [facility] ([id number]) [facility] CBC WITH DIFF 2022-12-31 20:00:00 [facility] URINALYSIS 2022-12-31 20:00:00 [facility] INTUBATION 2022-12-29 15:09:00 Neil Elkins [facility] LAPAROSCOPIC 2022-12-29 14:41:00 Nik [facility] CHOLECYSTECTOMY [facility] DAY SURGERY - ADC 2022-12-29 06:01:00 [facility] [place] REFERRAL- REQUEST/RESPONSE 2022-12-08 06:01:00 Doctor Darrel [facility] LIPASE 2022-12-03 14:28:00 Rex [facility] HEPATIC FUNCTION PANEL 2022-12-03 14:28:00 Rex [facility] ([id number]) (ALB,T.PRO,[facility] T,BU/BC,ALT,AST,ALK PHOS) CONSENT/REFUSAL FOR 2022-12-03 13:32:29 Doctor Darrel [facility] DIAGNOSIS AND TREATMENT [facility] MAGNESIUM 2022-12-03 00:22:00 Ck Martínez Sharla [facility] COMP. METABOLIC PANEL 2022-12-03 00:22:00 Ck Martínez [facility] ([id number]) [facility] US GALL BLADDER 2022-12-03 00:00:50 Ck Martínez [facility] POCT TEST 2022-12-02 23:29:[address] [facility] URINALYSIS 2022-12-02 23:07:00 Ck Martínez [facility] LIPASE 2022-12-02 23:03:00 Ck Martínez [facility] CBC WITH DIFF 2022-12-02 23:03:00 Ck Martínez [facility] CONSENT/REFUSAL FOR 2022-12-02 22:29:25 Doctor Darrel [facility] UR[facility] 2022-07-16 10:42:00 Kiah Barros [facility] LIPASE 2022-07-16 09:56:00 Kiah Barros [facility] TROPONIN I 2022-07-16 09:56:00 Kiah Barros [facility] COMP. METABOLIC PANEL 2022-07-16 09:56:00 Kiah Barros [facility] ([id number]) Medical [place] CBC WITH DIFF 2022-07-16 09:56:00 Kiah Barros [facility] PROTHROMBIN TIME / INR 2022-07-16 09:56:00 Kiah Barros [facility] ACTIVATED PARTIAL THRMPLAS 2022-07-16 09:56:00 Kiah Barros [facility] N-TERMINAL PRO-BNP 2022-07-16 09:56:00 Kiah Barros [facility] NOTICE OF PRIVACY 2022-07-16 09:28:11 Doctor Darrel [facility] CONSENT/REFUSAL FOR 2022-07-16 09:26:34 Doctor Darrel [facility] DIAGNOSIS AND TREATMENT [facility] Plan of Care Planned Activity Planned Date Details Comments Source Future Scheduled 2023-11-[address] [facility] Test 00:00:00 Counseling and Medical Cente r Screening (12+) [code = Tobacco Cessation Counseling and Screening (12+)] Future Scheduled 2023-06-[address] [facility] Test 00:00:00 (Season Ended) [code Medical Center = INFLUENZA VACCINE (Season Ended)] Future Scheduled 2022-10-[address] [facility] Test 00:00:00 (12+) [code = Medical Center DEPRESSION SCREENING (12+)] Future Scheduled [address] 00:[facility]:00 malignant neoplasm of Medica l Center cervix (procedure) [code = 563270406] Future Scheduled [address] [facility] 00:[facility]:00 (procedure) [code = Medical Center 75727403] Future Scheduled 2007-12-28 DTAP/TDAP/TD VACCINES [facility] 00:00:00 (1 - Tdap) [code = Medical C enter DTAP/TDAP/TD VACCINES (1 - Tdap)] Future Scheduled 2006 HEPATITIS C SCREENING [facility] Test 00:00:00 [code = HEPATITIS C Medical Center SCREENING] Future Scheduled 1989-06-29 COVID-19 VACCINE (#1) [facility] Test 00:00:00 [code = COVID-[address] VACCINE (#1)] Encounters Start End Encounter Admission Attending Care Care Encounter Source Date/Time Date/Time Type Type Clinicians Facility Department ID 2021-08-26 Emergency [facility] [id number] Univers 22:19:08 ity [facility] 2021-08-23 [facility] [id number] Univers 18:25:54 ity [facility] 2021-08-23 [facility] [id number] Univers 05:05:08 ity [facility] 2023-01-29 2023-01-30 Emergency X [facility] ERT [id number] Univers 21:34:00 01:33:00 KIAH ity [facility] 2023-01-29 2023-01-30 Emergency [facility] [id number] Univers 21:34:00 01:33:00 Kiah BRANTLEY 350.1.13.10 i ty of [place] 4.2.7.2.686 [facility] [phone] [place] [address] [address] 2023-01-30 2023-01-30 [facility] 1.2.560.251 [id number] Univers 00:00:00 00:00:00 Norman BRANTLEY 350.1.13.10 ity [facility] 4.2.7.2.686 [facility] [phone] Ma dic[address] 2023-01-12 2023-01-12 Office [facility] 1.2.840.114 [id number] Univers 14:00:00 14:15:00 Visit Norman FERCHO 350.1.13.10 ity [facility] [place] [id number] [address] 2023-01-12 2023-01-12 Outpatient R [facility] [id number] Univers 14:00:00 14:00:00 [facility] 2022-12-31 2022-12-31 Emergency X [facility] ERT [id number] Univers 13:30:00 16:00:00 [facility] 2022-12-31 2022-12-31 Emergency [facility] 1.2.379.866 [id number] Univers 13:30:00 16:00:00 Maxwell BRANTLEY 350.1.13.10 i ty [facility] [place]7.2.[place] [id number] [place] [address]0124 [place] 2022-12-31 2022-12-31 Telephone [facility] 1.2.666.565 [id number] Univers 00:00:00 00:00:00 Norman [facility] 350.1.13.10 ity [facility] [place] [id number] [address] 2022-12-29 2022-12-29 Outpatient R [facility] [id number] Univers 07:19:00 12:55:00 [facility] 2022-12-29 2022-12-29 Hospital [facility] 1.2.840.114 [id number] Univers 07:19:00 12:55:00 Encounter Norman [facility] 350.1.13.10 ity [facility] [place].2.[place] [id number] [address] 2022-12-29 2022-12-29 Anesthesia Neil Elkins [facility] 1.2.8 40.114 [id number] Univers 08:56:00 10:50:00 Event Franklin [facility] 350.1.13. 10 [facility] [place] [id number] [facility] [address] 2022-12-29 2022-12-29 Surgery [facility] 1.2.840.114 [id number] Univers 07:45:00 10:47:00 [facility] [id number] [facility] [place] [id number] [facility] [address] 2022-12-29 2022-12-29 Orders Doctor ANGEL 1.2.840.114 [id number] Univers 00:00:00 00:00:00 Only Unassigned, ROGELIO 350.1.13.10 ity of [facility] 4.2.7.2.686 Long as [id number] [address] 2022-12-26 2022-12-[address] [facility] [id number] 69049 0[address]24 [facility] 00:00:00 00:00:00 [facility] 2022-12-09 2022-12-09 Prep For [facility] 1.2.840.114 [id number] Univers 00:00:00 00:00:00 Surgery [facility] 350.1.13.10 it[place] of [place] [id number] Ma abena HERNANDEZ [address] [place] [address] 2022-12-08 2022-12-08 Outpatient R NIK [facility] [id number] Univers 15:45:00 16:55:36 ZARAGOZA [facility]MAN [facility] 2022-12-08 2022-12-08 Office [facility] 1.2.840.114 [id number] Univers 15:45:00 16:55:36 Visit Norman [facility] 350.1.13.10 it[facility] 4.2.[place] [phone] Ma abena NAL 188 [facility] 2022-12-08 2022-12-08 Orders Doctor ORTIZ 1.2.840.114 [id number] Univers 00:00:00 00:00:00 Only Unassigned, ROGELIO 350.1.13.10 ity of [facility] 4.2.7.2.686 [facility] [id number] [place] [address] [address] 2022-12-03 2022-12-03 Emergency [facility] E[facility] [id number] Univers 07:41:00 09:20:00 GEOVANNY amanda [facility] 2022-12-03 2022-12-03 Emergency [facility] 1.2.840.114 [id number] Univers 07:41:00 09:20:00 Geovanny BRANTLEY 350.1.13.10 i ty [facility] 4.2.7.2.686 [facility] [id number] [address] 2022-12-02 2022-12-02 Emergency X Ck MARTÍNEZ [facility] ERT [id number] Univers 16:36:00 20:28:00 ity of [facility] 2022-12-02 2022-12-02 Emergency Aaliyah [facility] 1.2.840.114 [id number] Univers 16:36:00 20:28:00 Sharla BRANTLEY 350.1.13.10 i ty [facility] 4.2.7.2.686 [facility] [id number] [address] 2022-11-05 2022-11-05 Outpatient EL [facility] [id number] 10:09:00 11:47:55 [facility] 2022-11-05 2022-11-05 [facility] [id number] 10:00:00 11:47:55 Visit [facility] 2022-07-16 2022-07-16 Emergency [facility] ERT [id number] Univers 04:30:00 07:06:00 KIAH patel [facility] 2022-07-16 2022-07-16 Emergency [facility] 1.2.110.741 [id number] Univers 04:30:00 07:06:00 Kiah BRANTLEY 350.1.13.10 i ty [id number] [place] [address]24 [place] 2021-10-31 2021-10-31 Outpatient R DARIA OLGA [facility] [id number] Univers 15:00:00 15:00:00 ity of [facility] 2021-09-18 2021-09-18 Outpatient R DARIA OLGA [facility] [id number] Univers 15:30:00 15:30:00 ity [facility] 2021-07-17 2021-07-17 Office Daria Olga [facility] 1.2.514.397 [id number] Univers 09:09:29 09:39:07 Visit Nhan Brantley 350.1.13.10 i ty [place] [id number] Ma dical [facility] [address] [employer] 2021-07-17 2021-07-17 Outpatient R OLGA HUFF [facility] [id number] Univers 09:00:00 09:00:00 ity [facility] 2021-07-15 2021-07-15 Radiation Oncology Nurse 2, Adc Lab [facility] 1.2.840.114 [id number] Univers 15:21:35 15:36:35 Visit Olga Huff 350.1.13.10 it[place] [phone] Ma dical [facility] [address] [employer] 2021-07-15 2021-07-15 Office Daria Olga WAMARY 1.2.494.294 [id number] Univers 14:34:10 15:19:02 Visit Nhan Brantley 350.1.13.10 i ty [place] [id number] Ma dical nal [address] [employer] 2021-07-15 2021-07-15 Outpatient R DARIA OLGA [facility] [id number] Univers 15:00:00 15:00:00 ity [facility] 2021-07-15 2021-07-15 Telephone Olga Huff [facility] 1.2.840.114 [id number] Univers 00:00:00 00:00:00 Cam Torrington 350.1.13.10 i [place] [id number] Ma dical nal [address] [employer] 2021-07-08 2021-07-09 Emergency Michael Tinoco [facility] 1.2. 840.114 [id number] Univers 13:15:00 09:35:00 Olga Huff [place] 350.1.13.10 ity of [place] [id number] [facility] [address] 2021-07-08 2021-07-08 Surgery Olga Huff [facility] 1.2.718.113 [id number] Univers 19:25:00 21:28:00 Cam [place] 350.1.13.10 i ty [place].2.[place] [id number] [facility] [address] 2021-07-08 2021-07-08 Orders Doctor ANGEL 1.2.840.114 [id number] Univers 00:00:00 00:00:00 Only Unassigned, ROGELIO 350.1.13.10 ity of [place] [facility] 4.2.7.2.686 Long as [phone] [facility] [address] 2021-02-24 2021-02-24 Emergency X PAPO [facility] ERT [id number] Univers 04:21:00 06:36:00 KIAH patel [facility] 2020-07-17 2020-07-17 Outpatient R HEMANTH [facility] [id number] Univers 15:00:00 15:00:00 RICK patel [facility] 2020-07-14 2020-07-14 Outpatient R DENG, [facility] [id number] Univers 08:00:00 08:00:00 ATTENDING ity [facility] Results Test Description Test Time Test Comments Results Result Comments Source COMP. METABOLIC PANEL (70739) 2023-01-30 03:10:06 Test Item Value Reference Range Interpretation Comme nts NA (test code = 7179254146) 139 mmol/L 135-145 K (test code = 8362952990) 4.0 mmol/L 3.5-5.0 CL (test code = 8560463062) 103 mmol/L 98-108 CO2 TOTAL (test code = 9326018755) 28 mmol/L 23-31 AGAP (test code = 9214085132) 8 2-16 BUN (test code = 6806982084) 15 mg/dL 7-23 GLUCOSE (test code = 5424311563) 94 mg/dL 70-110 CREATININE (test code = 0.68 mg/dL 0.50-1.04 5943283844) TOTAL BILI (test code = 0.6 mg/dL 0.1-1.1 1502499177) CALCIUM (test code = 7671344388) 9.4 mg/dL 8.6-10.6 T PROTEIN (test code = 1913024502) 7.3 g/dL 6.3-8.2 ALBUMIN (test code = 2688382342) 4.2 g/dL 3.5-5.0 ALK PHOS (test code = 0475885806) 68 U/L 34-122 ALTv (test code = 1742-6) 26 U/L 5-35 AST(SGOT) (test code = 9116982399) 41 U/L 13-40 H eGFR (test code = 2134133504) 99.0 mL/min/1.73m2 TAMERA (test code = TAMERA) Association of Glomerular Filtration Rate (GFR) and Staging of Kidney Disease* + +-------- + ------+| GFR (mL/min/1.73 m2) ?| With Kidney Damage ?| ?Without Kidney Damage+ +-- + +| ?>90 ?| ?Stage one ?| ? Normal ?+ +------- + -------+| ?60-89 ?| ?Stage two ?| ? Decreased GFR ? + +-------- + ------+| ?30-59 ?| ?Stage three ?| ? Stage three ? + +-------- + ------+| ?15-29 ?| ?Stage four ? | ? Stage four ?+ +------- + -------+| ?<15 (or dialysis) ? ?| ?Stage five ? | ? Stage five ?+ +------- + -------+ *Each stage assumes the associated GFR level has been in effect for at least three months. ?Stages 1 to 5, with or without kidney disease, indicate chronic kidney disease. Notes: Determination of stages one and two (with eGFR >59mL/min/1.73 m2) requires estimation of kidney damage for at least three months as defined by structural or functional abnormalities of the kidney, manifested by either:Pathological abnormalities or Markers of kidney damage (including abnormalities in the composition of the blood or urine or abnormalities in imaging tests). Lab Interpretation (test code = Abnormal 07011-5) [facility] 03:10:06 Test Item Value Reference Range Interpretation Comments LIPASE (test code = 1623118976) 57 U/L 0-220 Lab Interpretation (test code = Normal 61559-3) [facility] AllianceACTIVATED PARTIAL THRMPLAS [id number] 03:07:45 Test Item Value Reference Range Interpretation Comments APTT Patient (test 25 See_Comment [Automat ed code = 3173-2) message] The system which generated this result transmitted reference range : 23 - 38 Seconds . The reference range was not used to interpr et this result as normal/abnormal . TAMERA (test code = TAMERA) The [facility] patient population mean normal value for aPTT is 30 seconds. Lab Interpretation Normal (test code = 56612-9) [facility] AlliancePROTHROMBIN TIME / [id number] 03:05:44 Test Item Value Reference Range Interpretation Comments PROTIME PATIENT (test 13.0 See_Comment [Auto mated message] code = 5964-2) The system wh ich generated this result transmitted ref erence range: 12.0 - 1 4.7 Seconds. The re ference range was not u sed to interpret this result as normal/abnor mal. INR (test code = 6301-6) 1.0 Nor mal INR <1.1; Warfarin Therap eutic range 2.0 to 3. 0 or 2.5 to 3.5, dep ending upon the indica tions. Lab Interpretation (test Normal code = 89210-7) [facility] AllianceCBC WITH [id number] 03:02:41 Test Item Value Reference Range Interpretation Comments WBC (test code = 9.80 See_Comment [Automated 5690-2) message] The sy stem which generated this result transmitted reference range : 4.30 - 11.10 10*3/?L. The reference range was not used to interpret this result as normal/abnormal . RBC (test code = 3.62 See_Comment L [Automated 789-8) message] The sy stem which generated this result transmitted reference range : 3.93 - 5.25 10*6/?L. The reference range was not used to interpret this result as normal/abnormal . HGB (test code = 11.3 g/dL 11.6-15.0 L 718-7) HCT (test code = 33.7 % 35.7-45.2 L 4544-3) MCV (test code = 93.1 fL 80.6-95.5 787-2) MCH (test code = 31.2 pg 25.9-32.8 785-6) MCHC (test code = 33.5 g/dL 31.6-35.1 786-4) RDW-SD (test code = 44.9 fL 39.0-49.9 14802-4) RDW-CV (test code = 13.2 % 12.0-15.5 788-0) PLT (test code = 274 See_Comment [Automated 777-3) message] The sy stem which generated this result transmitted reference range : 166 - 358 10*3/ ?L. The reference r aditya was not used to interpret this result as normal/abnormal . MPV (test code = 8.8 fL 9.5-12.9 L 09211-5) NRBC/100 WBC (test 0.0 See_Comment [Automat ed code = 1480508945) message] The system which generated this result transmitted reference range : 0.0 - 10.0 /100 WBCs. The refer ence range was not u sed to interpret th is result as normal/abnormal . NRBC x10^3 (test code See_Comment [Auto mated = 9312626203) message] The s ystem which generated this result transmitted reference range : 10*3/?L. The reference range was not used to interpret this result as normal/abnormal . GRAN MAT (NEUT) % 45.5 % (test code = 770-8) IMM GRAN % (test code 0.30 % = 2536837753) LYMPH % (test code = 38.8 % 736-9) MONO % (test code = 8.0 % 5905-5) EOS % (test code = 6.7 % 713-8) BASO % (test code = 0.7 % 706-2) GRAN MAT x10^3(ANC) 4.46 10*3/uL 1.88-7.09 (test code = 9252723955) IMM GRAN x10^3 (test 0.03 10*3/uL 0.00-0.06 code = 9956534369) LYMPH x10^3 (test code 3.80 10*3/uL 1.32-3.29 H = 731-0) MONO x10^3 (test code 0.78 10*3/uL 0.33-0.92 = 742-7) EOS x10^3 (test code = 0.66 10*3/uL 0.03-0.39 H 711-2) BASO x10^3 (test code 0.07 10*3/uL 0.01-0.07 = 704-7) Lab Interpretation Abnormal (test code = 63706-8) [facility] AlliancePOCT [id number] 02:42:00 Test Item Value Reference Range Interpretation Comments POCT PREG (test code = 1605) Netgative On board controls acceptable with Positive C Line (test code = 3574) POCT PREG LOT # (test code = [id number]) POCT PREG TEST DATE (test 11/25/2023 code = 3576) Lab Interpretation (test code = Normal 21321-6) [facility]. METABOLIC PANEL (67085)2022-12-31 20:33:55 Test Item Value Reference Range Interpretation Comments NA (test code = 137 mmol/L 135-145 9080683473) K (test code = 4.1 mmol/L 3.5-5.0 6006454940) CL (test code = 102 mmol/L 98-108 8221125916) CO2 TOTAL (test code = 28 mmol/L 23-31 5562017343) AGAP (test code = 7 2-16 9353596751) BUN (test code = 12 mg/dL 7-23 2830805235) GLUCOSE (test code = 93 mg/dL 70-110 2194592389) CREATININE (test code = 0.84 mg/dL 0.50-1.04 5307651248) TOTAL BILI (test code = 1.8 mg/dL 0.1-1.1 H 5041464093) CALCIUM (test code = 8.5 mg/dL 8.6-10.6 L 2471348968) T PROTEIN (test code = 7.4 g/dL 6.3-8.2 4511813052) ALBUMIN (test code = 4.0 g/dL 3.5-5.0 5014138863) ALK PHOS (test code = 124 U/L 34-122 H 9692582266) ALTv (test code = 568 U/L 5-35 H 1742-6) AST(SGOT) (test code = 456 U/L 13-40 H 0047340478) eGFR (test code = 77.6 mL/min/1.73m2 4349037622) TAMERA (test code = TAMERA) Association of Glomerular Filtration Rate (GFR) and Staging of Kidney Disease* + --+ --+ ------+| GFR (mL/min/1.73 m2) ?| With Kidney Damage ?| ?Without Kidney Damage+ --------+ --------+ +| ?>90 ?| ?Stage one ?| ? Normal ?+ ---+ ---+ -------+| ?60-89 ?| ?Stage two ?| ? Decreased GFR ? + --+ --+ ------+| ?30-59 ?| ?Stage three ?| ? Stage three ? + --+ --+ ------+| ?15-29 ?| ?Stage four ? | ? Stage four ?+ ---+ ---+ -------+| ?<15 (or dialysis) ? ?| ?Stage five ? | ? Stage five ?+ ---+ ---+ -------+ *Each stage assumes the associated GFR level has been in effect for at least three months. ?Stages 1 to 5, with or without kidney disease, indicate chronic kidney disease. Notes: Determination of stages one and two (with eGFR >59mL/min/1.73 m2) requires estimation of kidney damage for at least three months as defined by structural or functional abnormalities of the kidney, manifested by either:Pathological abnormalities or Markers of kidney damage (including abnormalities in the composition of the blood or urine or abnormalities in imaging tests). Lab Interpretation Abnormal (test code = 15844-7) [facility] AllianceLIPASE2023-03-08 20:33:35 Test Item Value Reference Range Interpretation Comments LIPASE (test code = 5976555218) 35 U/L 0-220 Lab Interpretation (test code = Normal 93804-1) [facility] AllianceCB WITH [id number] 20:27:14 Test Item Value Reference Range Interpretation Comments WBC (test code = 6.31 See_Comment [Automated 6890-2) message] The sy stem which generated this result transmitted reference range : 4.30 - 11.10 10*3/?L. The reference range was not used to interpret this result as normal/abnormal . RBC (test code = 3.93 See_Comment [Automated 789-8) message] The sy stem which generated this result transmitted reference range : 3.93 - 5.25 10*6/?L. The reference range was not used to interpret this result as normal/abnormal . HGB (test code = 12.1 g/dL 11.6-15.0 718-7) HCT (test code = 37.2 % 35.7-45.2 4544-3) MCV (test code = 94.7 fL 80.6-95.5 787-2) MCH (test code = 30.8 pg 25.9-32.8 785-6) MCHC (test code = 32.5 g/dL 31.6-35.1 786-4) RDW-SD (test code = 44.9 fL 39.0-49.9 37480-3) RDW-CV (test code = 12.9 % 12.0-15.5 788-0) PLT (test code = 317 See_Comment [Automated 777-3) message] The sy stem which generated this result transmitted reference range : 166 - 358 10*3/ ?L. The reference r aditya was not used to interpret this result as normal/abnormal . MPV (test code = 8.9 fL 9.5-12.9 L 92656-5) NRBC/100 WBC (test 0.0 See_Comment [Automat ed code = 6705561193) message] The system which generated this result transmitted reference range : 0.0 - 10.0 /100 WBCs. The refer ence range was not u sed to interpret th is result as normal/abnormal . NRBC x10^3 (test code See_Comment [Auto mated = 4192627196) message] The s ystem which generated this result transmitted reference range : 10*3/?L. The reference range was not used to interpret this result as normal/abnormal . GRAN MAT (NEUT) % 56.8 % (test code = 770-8) IMM GRAN % (test code 0.30 % = 0333468947) LYMPH % (test code = 29.5 % 736-9) MONO % (test code = 7.6 % 5905-5) EOS % (test code = 5.5 % 713-8) BASO % (test code = 0.3 % 706-2) GRAN MAT x10^3(ANC) 3.58 10*3/uL 1.88-7.09 (test code = 7965095560) IMM GRAN x10^3 (test 0.00-0.06 code = 7406862920) LYMPH x10^3 (test code 1.86 10*3/uL 1.32-3.29 = 731-0) MONO x10^3 (test code 0.48 10*3/uL 0.33-0.92 = 742-7) EOS x10^3 (test code = 0.35 10*3/uL 0.03-0.39 711-2) BASO x10^3 (test code 0.01-0.07 = 704-7) Lab Interpretation Abnormal (test code = 35604-0) [facility] AllianceCOMP. METABOLIC PANEL (72836)2022-12-03 00:53:00 Test Item Value Reference Range Interpretation Comments NA (test code = 138 mmol/L 135-145 7454119584) K (test code = 4.3 mmol/L 3.5-5.0 1018307109) CL (test code = 104 mmol/L 98-108 8607462979) CO2 TOTAL (test code 24 mmol/L 23-31 = 7083822616) AGAP (test code = 10 2-16 8788212499) BUN (test code = 17 mg/dL 7-23 3458251740) GLUCOSE (test code = 85 mg/dL 70-110 9235776445) CREATININE (test code 0.66 mg/dL 0.50-1.04 = 8365635571) TOTAL BILI (test code 0.7 mg/dL 0.1-1.1 = 9880279423) CALCIUM (test code = 9.2 mg/dL 8.6-10.6 3353948668) T PROTEIN (test code 8.0 g/dL 6.3-8.2 = 0835326516) ALBUMIN (test code = 4.6 g/dL 3.5-5.0 5964967231) ALK PHOS (test code = 83 U/L 34-122 6353728858) ALTv (test code = 19 U/L 5-35 2-6) AST(SGOT) (test code 23 U/L 13-40 = 6441632122) eGFR (test code = 103.1 mL/min/1.73m2 0464861622) TAMERA (test code = TAMERA) Association of Glomerular Filtration Rate (GFR) and Staging of Kidney Disease* + + +- +| GFR (mL/min/1.73 m2) ?| With Kidney Damage ?| ?Without Kidney Damage+ ------+ ----+ ------+| ?>90 ?| ?Stage one ?| ? Normal ?+ -+ + -+| ?60-89 ?| ?Stage two ?| ? Decreased GFR ? + + +- +| ?30-59 ?| ?Stage three ?| ? Stage three ? + + +- +| ?15-29 ?| ?Stage four ? | ? Stage four ?+ -+ + -+| ?<15 (or dialysis) ? ?| ?Stage five ? | ? Stage five ?+ -+ + -+ *Each stage assumes the associated GFR level has been in effect for at least three months. ?Stages 1 to 5, with or without kidney disease, indicate chronic kidney disease. Notes: Determination of stages one and two (with eGFR >59mL/min/1.73 m2) requires estimation of kidney damage for at least three months as defined by structural or functional abnormalities of the kidney, manifested by either:Pathological abnormalities or Markers of kidney damage (including abnormalities in the composition of the blood or urine or abnormalities in imaging tests). [facility] AllianceMAGNESIUM2023-02-08 00:53:00 Test Item Value Reference Range Interpretation Comments MAGNESIUM (test code = 1947026411) 1.8 mg/dL 1.7-2.4 Lab Interpretation (test code = Normal 68137-0) [facility] Alliance[facility]2023-[facility] 23:29:48 Test Item Value Reference Range Interpretation Comments LIPASE (test code = 4303013423) 80 U/L 0-220 Lab Interpretation (test code = Normal 96075-6) [facility] AlliancePOCT [id number] 23:29:00 Test Item Value Reference Range Interpretation Comments POCT PREG (test code = 1605) negative On board controls acceptable with present C Line (test code = 3574) POCT PREG LOT # (test code = 3575) [id number] POCT PREG TEST DATE (test 01/24/2024 code = 3576) Lab Interpretation (test code = Normal 17719-3) [facility] AllianceCB WITH [id number] 23:17:06 Test Item Value Reference Range Interpretation Comments WBC (test code = 7.08 See_Comment [Automated 5733-2) message] The sy stem which generated this result transmitted reference range : 4.30 - 11.10 10*3/?L. The reference range was not used to interpret this result as normal/abnormal . RBC (test code = 3.86 See_Comment L [Automated 532-8) message] The sy stem which generated this result transmitted reference range : 3.93 - 5.25 10*6/?L. The reference range was not used to interpret this result as normal/abnormal . HGB (test code = 12.0 g/dL 11.6-15.0 718-7) HCT (test code = 35.4 % 35.7-45.2 L 4544-3) MCV (test code = 91.7 fL 80.6-95.5 787-2) MCH (test code = 31.1 pg 25.9-32.8 785-6) MCHC (test code = 33.9 g/dL 31.6-35.1 786-4) RDW-SD (test code = 42.9 fL 39.0-49.9 10471-7) RDW-CV (test code = 12.8 % 12.0-15.5 788-0) PLT (test code = 338 See_Comment [Automated 777-3) message] The sy stem which generated this result transmitted reference range : 166 - 358 10*3/ ?L. The reference r aditya was not used to interpret this result as normal/abnormal . MPV (test code = 8.8 fL 9.5-12.9 L 32179-7) NRBC/100 WBC (test 0.0 See_Comment [Automat ed code = 1782250883) message] The system which generated this result transmitted reference range : 0.0 - 10.0 /100 WBCs. The refer ence range was not u sed to interpret th is result as normal/abnormal . NRBC x10^3 (test code See_Comment [Auto mated = 9034178303) message] The s ystem which generated this result transmitted reference range : 10*3/?L. The reference range was not used to interpret this result as normal/abnormal . GRAN MAT (NEUT) % 52.4 % (test code = 770-8) IMM GRAN % (test code 0.30 % = 5811552613) LYMPH % (test code = 36.7 % 736-9) MONO % (test code = 7.2 % 5905-5) EOS % (test code = 2.7 % 713-8) BASO % (test code = 0.7 % 706-2) GRAN MAT x10^3(ANC) 3.71 10*3/uL 1.88-7.09 (test code = 6249182436) IMM GRAN x10^3 (test 0.00-0.06 code = 0864366029) LYMPH x10^3 (test code 2.60 10*3/uL 1.32-3.29 = 731-0) MONO x10^3 (test code 0.51 10*3/uL 0.33-0.92 = 742-7) EOS x10^3 (test code = 0.19 10*3/uL 0.03-0.39 711-2) BASO x10^3 (test code 0.05 10*3/uL 0.01-0.07 = 704-7) Lab Interpretation Abnormal (test code = 11717-9) [facility] Alliance[facility] [id number] 10:36:01 Test Item Value Reference Interpretation Comments Range TROPONIN I (test See_Comment [Automated code = 1062078778) message] The system which generated this result transmitted reference range : <=0.034. The reference range was not used to interpret this result as normal/abnormal . TAMERA (test code = Reference (Normal) TAMERA) Range (defined by the 99th percentile reference limit): <= 0.034 ng/mL Note: Cardiac troponin begins to rise 3-4 hours after the onset of ischemia. Repeat in 4-6 hours if the sample was drawn within 3-4 hours of the onset of the symptom and found normal. Diagnosis of myocardial injury is made with acute changes in cTn concentrations with at least one serial sample above the 99th percentile upper reference limit (URL), taken together with the patient's clinical presentation. Biotin has been reported to cause a negative bias, interpret results relative to patient's use of biotin. Lab Interpretation Normal (test code = 15160-7) [facility] AllianceN-TERMINAL [id number] 10:32:38 Test Item Value Reference Range Interpretation Comments NT-proBNP (test code 18 pg/mL See_Comment [Autom ated = 5130389783) message] The system which generated this result transmitted reference range : <=125. The reference range was not used to interpret this result as normal/abnormal . TAMERA (test code = TAMERA) Biotin has been reported to cause a negative bias, interpret results relative to patient's use of biotin. Lab Interpretation Normal (test code = 92989-6) [facility] AllianceCOMP. METABOLIC PANEL (52370)2022-07-16 10:24:33 Test Item Value Reference Range Interpretation Comments NA (test code = 138 mmol/L 135-145 8677908793) K (test code = 4.1 mmol/L 3.5-5 2793486741) CL (test code = 105 mmol/L 98-108 7157751129) CO2 TOTAL (test code = 26 mmol/L 23-31 7498530818) AGAP (test code = 2-16 3286283435) BUN (test code = 14 mg/dL 7-23 0255896429) GLUCOSE (test code = 111 mg/dL 70-110 H 2059180574) CREATININE (test code = 0.81 mg/dL 0.5-1.04 8826422666) TOTAL BILI (test code = 0.2 mg/dL 0.1-1.4 5351065153) CALCIUM (test code = 9.0 mg/dL 8.6-10.6 3521715041) T PROTEIN (test code = 7.1 g/dL 6.3-8.2 1099211201) ALBUMIN (test code = 4.3 g/dL 3.5-5 3177103420) ALK PHOS (test code = 75 U/L 34-122 0233346149) ALTv (test code = 18 U/L 5-35 2-6) AST(SGOT) (test code = 19 U/L 13-40 2870567483) eGFR (test code = mL/min/1.73m2 3878833453) TAMERA (test code = TAMERA) Association of Glomerular Filtration Rate (GFR) and Staging of Kidney Disease* + --+ --+ ------+| GFR (mL/min/1.73 m2) ?| With Kidney Damage ?| ?Without Kidney Damage+ --------+ --------+ +| ?>90 ?| ?Stage one ?| ? Normal ?+ ---+ ---+ -------+| ?60-89 ?| ?Stage two ?| ? Decreased GFR ? + --+ --+ ------+| ?30-59 ?| ?Stage three ?| ? Stage three ? + --+ --+ ------+| ?15-29 ?| ?Stage four ? | ? Stage four ?+ ---+ ---+ -------+| ?<15 (or dialysis) ? ?| ?Stage five ? | ? Stage five ?+ ---+ ---+ -------+ *Each stage assumes the associated GFR level has been in effect for at least three months. ?Stages 1 to 5, with or without kidney disease, indicate chronic kidney disease. Notes: Determination of stages one and two (with eGFR >59mL/min/1.73 m2) requires estimation of kidney damage for at least three months as defined by structural or functional abnormalities of the kidney, manifested by either:Pathological abnormalities or Markers of kidney damage (including abnormalities in the composition of the blood or urine or abnormalities in imaging tests). Lab Interpretation Abnormal (test code = 70667-8) [facility] AllianceLIPASE2022-09-21 10:23:52 Test Item Value Reference Range Interpretation Comments LIPASE (test code = 8908062159) 79 U/L 0-220 Lab Interpretation (test code = Normal 94396-2) [facility] AllianceACTIVATED PARTIAL THRMPLAS [id number] 10:15:12 Test Item Value Reference Range Interpretation Comments APTT Patient (test See_Comment [Automat ed code = 3173-2) message] The system which generated this result transmitted reference range : 23 - 38 Seconds . The reference range was not used to interpr et this result as normal/abnormal . TAMERA (test code = TAMERA) The [facility] patient population mean normal value for aPTT is 30 seconds. Lab Interpretation Normal (test code = 36251-7) [facility] AlliancePROTHROMBIN TIME / [id number] 10:13:12 Test Item Value Reference Range Interpretation Comments PROTIME PATIENT (test See_Comment [Auto mated message] code = 5964-2) The system wh ich generated this result transmitted ref erence range: 12.0 - 1 4.7 Seconds. The re ference range was not u sed to interpret this result as normal/abnor mal. INR (test code = 6301-6) Nor mal INR <1.1; Warfarin Therap eutic range 2.0 to 3. 0 or 2.5 to 3.5, dep ending upon the indica tions. Lab Interpretation (test Normal code = 80098-2) [facility] AllianceCBC WITH [id number] 10:04:36 Test Item Value Reference Range Interpretation Comments WBC (test code = See_Comment [Automated 9190-2) message] The sy stem which generated this result transmitted reference range : 4.30 - 11.10 10*3/?L. The reference range was not used to interpret this result as normal/abnormal . RBC (test code = See_Comment L [Automated 729-8) message] The sy stem which generated this result transmitted reference range : 3.93 - 5.25 10*6/?L. The reference range was not used to interpret this result as normal/abnormal . HGB (test code = 12.2 g/dL 11.6-15 718-7) HCT (test code = 35.4 % 35.7-45.2 L 4544-3) MCV (test code = 91.0 fL 80.6-95.5 787-2) MCH (test code = 31.4 pg 25.9-32.8 785-6) MCHC (test code = 34.5 g/dL 31.6-35.1 786-4) RDW-SD (test code = 45.2 fL 39-49.9 94300-6) RDW-CV (test code = 13.5 % 12-15.5 788-0) PLT (test code = See_Comment [Automated 777-3) message] The sy stem which generated this result transmitted reference range : 166 - 358 10*3/ ?L. The reference r aditya was not used to interpret this result as normal/abnormal . MPV (test code = 9.0 fL 9.5-12.9 L 11117-0) NRBC/100 WBC (test See_Comment [Automat ed code = 7456665618) message] The system which generated this result transmitted reference range : 0.0 - 10.0 /100 WBCs. The refer ence range was not u sed to interpret th is result as normal/abnormal . NRBC x10^3 (test code See_Comment [Auto mated = 4146864868) message] The s ystem which generated this result transmitted reference range : 10*3/?L. The reference range was not used to interpret this result as normal/abnormal . GRAN MAT (NEUT) % 53.9 % (test code = 770-8) IMM GRAN % (test code 0.40 % = 9285630528) LYMPH % (test code = 32.9 % 736-9) MONO % (test code = 8.1 % 5905-5) EOS % (test code = 4.0 % 713-8) BASO % (test code = 0.7 % 706-2) GRAN MAT x10^3(ANC) 4.82 10*3/uL 1.88-7.09 (test code = 3943816869) IMM GRAN x10^3 (test 0.04 10*3/uL 0-0.06 code = 2124080511) LYMPH x10^3 (test code 2.94 10*3/uL 1.32-3.29 = 731-0) MONO x10^3 (test code 0.72 10*3/uL 0.33-0.92 = 742-7) EOS x10^3 (test code = 0.36 10*3/uL 0.03-0.39 711-2) BASO x10^3 (test code 0.06 10*3/uL 0.01-0.07 = 704-7) Lab Interpretation Abnormal (test code = 02879-5) [facility] AllianceUTERUS,OTHER THAN PROLAPSE/[id number] 16:24:00 RUN DATE: 03/03/19 [facility] PAGE 1 RUN TIME: 1249 Specimen Inquiry RUN USER: INTERFACE -PATIENT: [facility]IT [facility]AN [facility] [place] #: [id number] AGE/SX: 28/F ROOM: [facility] RE03/01/19REG DR:Angel Atkins III, MD : 88 BED: A DIS: 03/02/19 STATUS: DIS Angus TLOC: SPEC #: [id number] RECD: 03/01/19 STATUS: SAMM POP #: [id number] OCTAVIANO: 03/01/19- SUBM DR: Angel Atkins III, MD ENTERED: 03/01/19 SP TYPE: UTERUSOTH OTHR DR: ORDERED: LEVEL V SURGICA CODES: M77832 - UTERUS, NOS PROCEDURES: LEVEL V SURGICA (Incomplete) TISSUES: UTERUS, NOS - UTERUS, CERVIX AND BILATERAL FALLOPIAN TUBES CLINICAL HISTORY 28 year old, pelvic pain, menorrhagia, dyspareunia (kr) FINAL DIAGNOSIS Uterus, bilateral fallopian tubes, hysterectomy and bilateral salpingectomy: - mild nonspecific chronic cervicitis and parakeratosis of cervix, consistent with prolapse, no dysplasia identified - benign interval phase endometrium - myometrium and uterine serosa, no significant pathologic alteration - right and left fallopian tubes with Essure coils, no significant pathologic alteration Tissue code 1 CPT code(s): 65752 [facility] 03/02/19 GROSS DESCRIPTION ANATOMIC SOURCE OF TISSUE (per Requisition): Uterus, cervix, bilateral tubes The specimen is received in a formalin-filled container, labeled with the patient's name anddesignated "uterus, cervix, bilateral tubes". The specimen consists of a 223 gm, 10.5 x 7.5 x 6.0 cmintact uterus with an attached cervix and fimbriated fallopian tubes (right 8.5 cm in length and left 9.0 cm in length). The uterine serosa gonzalez-pink, hyperemic and nodular. The 3.3 cm ectocervix displays a central 1 cm slit-like os. The endometrium is gonzalez-red, focally hemorrhagic and slightly lush with a thickness measuring up to 0.3 cm. The myometrium is trabeculated with a wall thickness measuring up to 2.7 cm. There are no intramural nodules. CONTINUED ON NEXT PAGE RUN DATE: 03/03/19 [facility] PAGE 2 RUN TIME: 1249 Specimen Inquiry RUN USER: INTERFACE SPEC #: [id number] PATIENT: KIT EGAN #[id number] (Continued) GROSS DESCRIPTION (Continued) The fallopian tubes are pink-purple and hyperemicwith pinpoint lumens. There are bilateral embedded silver metallic coils, which are consistent with Essure coils. Section code: A1 - cervix, A2 - anterior endomyometrium, A3 - posterior endomyometrium,A4 - additional endometrium and serosa, A5 - product sales representative sections of right fallopian tube and A6 - product sales representative sections of left fallopian tube. fidel 03/01/19 @ 1234 Signed Sonya Mccracken MD 03/02/19 1624 END OF REPORT HGB [id number] 06:09:00 Test Item Value Reference Range Interpretation Comments HEMOGLOBIN (test code = HGB) 8.2 g/dL 10.7-13.9 L HEMATOCRIT (test code = HCT) 27.5 % 32.1-42.1 L UR HCG [id number] 06:21:00 Test Item Value Reference Range Interpretation Comments UR HCG QUAL (test NEGATIVE 1. Very di lute urine code = HCGQLU) specimens, as indicated by a lowspecific g ravity, may not contain rep resentative levels ofhCG. 2 . False negative result s may occur when the levels of hCGare below the sensi tivity level of the test. If is still suspec mahesh, a first morningurine sp ecimen should be colle cted 48 hours later and tested. AB HIV 1 16:02:00 Test Item Value Reference Range Interpretation Comments AB HIV 1 2 (test NONREACTIVE NONREACTIVE Done by [facility] [place] = LAH01OI) 4th Gen HIV Ag/Ab Combo Screen IS CONSENT FORM SIGNED FOR HIV TESTING? YHCG SERUM [id number] 13:14:00 Test Item Value Reference Range Interpretation Comments HCG SERUM QUAL (test code = HCGQL) NEGATIVE CBC W/AUTO [id number] 13:13:00 Test Item Value Reference Range Interpretation Comments WHITE BLOOD CELL (test code = WBC) 6.7 K/mm3 6.6-12.1 N RED BLOOD CELL (test code = RBC) 3.72 M/mm3 3.45-5.01 N HEMOGLOBIN (test code = HGB) 8.9 g/dL 10.7-13.9 L HEMATOCRIT (test code = HCT) 30.0 % 32.1-42.1 L MEAN CELL VOLUME (test code = MCV) 81 fL 84.1-94.8 L MEAN CELL HGB (test code = MCH) 23.9 pg 27-35 L MEAN CELL HGB CONCETRATION (test 29.7 gm/dL 32.2-34.1 L code = MCHC) RED CELL DISTRIBUTION WIDTH (test 18.0 % 12.4-16.5 H code = RDW) PLATELET COUNT (test code = PLT) 397 K/mm3 133-385 H IMMATURE PLATELET FRACTION (test 0.0 % 0.0-10.8 N code = IPF) MEAN PLATELET VOLUME (test code = 9.7 fl 9.1-12.7 N MPV) NEUTROPHIL % (test code = NT%) 56.5 % 56.5-79.4 N LYMPHOCYTE % (test code = LY%) 33.4 % 14.3-34.3 N MONOCYTE % (test code = MO%) 4.9 % 5.1-10.4 L EOSINOPHIL % (test code = EO%) 4.0 % 0.1-3.0 H BASOPHIL % (test code = BA%) 0.9 % 0.1-1.0 N NEUTROPHIL # (test code = NT#) 3.8 K/mm3 LYMPHOCYTE # (test code = LY#) 2.2 K/mm3 MONOCYTE # (test code = MO#) 0.3 K/mm3 EOSINOPHIL # (test code = EO#) 0.27 K/mm3 BASOPHIL # (test code = BA#) 0.1 K/mm3 RBC MORPHOLOGY REQUIRED (test code NORMAL NORMAL = RBCM) PLATELET MORPHOLOGY REQUIRED (test NORMAL NORMAL code = PLTMR) Notes Date/Time Note Provider Source 2019-03-02 07:10:00-00:00 [facility] Gynecology Post Prog Note REPORT#:[id number] REPORT STATUS: Signed DATE:03/02/19 TIME: 709 PATIENT: KIT EGAN UNIT #: [id number] ROOM/BED: 2664-A : 88 AGE: 28 SEX: F ATTEND: Angel Atkins III, MD ADM AUTHOR: Angel Atkins III, MD * ALL edits or amendments must be made on the [employer]/computer document * General ORM Surgeries: Surgery Date and Time: 03/01/2019 0730 Primary Procedure: THREE PUNCTURE TOTAL LAPAROS COPIC Secondary Procedure: CYSTOSCOPY WITH PROCEDURE Post-op: day 1 Status post: [facility] Subjective Patient reports: Yes: complaints, abdominal pain, ambulating, fla tus/bowel movement, pain controlled, pelvic pain, tolerating diet. No: ch ills, fever, headache, heartburn, nausea, vaginal bleeding, voiding/uri nating, vomiting. Objective Physical Exam VS/I O Last Documented: Result Date Time Pulse Ox 98 03/02 336 B/P 120/72 03/02 336 B/P Mean 88.0 03/02 336 O2 Delivery Room air 03/02 336 Temp 98.6 03/02 336 Pulse 77 03/02 336 Resp 18 03/02 336 O2 Flow Rate 10.137273 03/01 0916 24 hour I O ending at 0700: 03/01 1900 03/02 0700 Intake Total 2600.00 1915.00 Output Total 1400 1350 Balance 1200.00 565.00 Intake, IV 2600.00 1075.00 Intake, Oral 840 Number Voids 3 Output, 50 Estimated Blood Loss Output, Urine 1350 1350 Patient 302 lb Weight Weight Standing scale Measurement Method General appearance: alert, awake, oriented Wound/incision: Location: Abd Site condition: dressing clean dry, dressing in tact Abdomen: normal bowel sounds, non-tender, soft Extremities: full range of motion, moves all, no calf tenderness Diagnosis, Assessment Plan Free Text A P: POD #1 S/P [facility] doing well D/C Home Instructions given at 0712 RPT #:[id number] END OF REPORT 2019-03-01 09:01:00-00:00 [id number] [facility] [address], [place] [address] PATIENT NAME: KIT EGAN ADMIT DATE: ACCOUNT NO: [id number] ROOM NO: [facility] AGE: 28 SEX: F ADMITTING PHYSICIAN: Angel Atkins III, MD ATTENDING PHYSICIAN: Angel Atkins III, MD OPERATION DATE: 03/01/2019 ADMITTING DIAGNOSES: Menorrh agia, pelvic pain, dyspareunia, anemia secondary to iron deficiency. POSTOPERATIVE DIAGNOSES: Menorrhagia, pelvic elizabeth n, dyspareunia, anemia secondary to iron deficiency. SURGEON: Angel Atkins III, MD ACCOUNT ADJUSTER: Concha Brown MD PROCEDURE: TLH-BS, cystoscopy by Dr. Brown. ANESTHESIA: General. FINDINGS: At the time of scope, the following fi ndings noted. The upper abdomen was normal. Liver was normal. Uterus upp er limits of normal size, boggy suggestive of adenomyo sis. Both the right and left tubes and ovaries were within normal limits. No evidence of adhesions, endometriosis, or other scar tissue. PROCEDURE IN DETAIL: The patient was bro ught to the operating room, prepped in sterile manner for a vaginal abdominal procedure . Attention turned to vaginal area after Holman catheter in place, clear urine. Cervix was grasped with single tooth tenaculum, sounded to approximately 10 cm. A 3/10 VERONICA manipulator was placed without difficulty. Attention turned to a bdominal area where 0.25% Marcaine was injected in each incision s ite. The vertical incision made within the umbilicus. Veress needle placed without incident with hanging drop negative suction irrigation. Carbon dioxide and p neumoperitoneum was performed with 2.5 liters. A 5-mm trocar was placed under direct vi tacho within the umbilicus. With the aid of two 5-mm trocars in the right an d left side to the abdomen. Procedure was begun. The uterus was first removed by starting with th e round ligaments bilaterally with Harmonic scalpel, carried down creating a b ladder flap. The fallopian tubes were then removed gently with Harmonic lily rgy. Utero-ovarian ligaments were then taken. Dissection carried down to the level of the cardinal and the uterines arteries were then taken with bipolar e nergy and transected with Harmonic scalpel. Circumfere ntial incision was made around the VERONICA cup and then delivery of the uterus vaginally. A 2-0 PDS V-Lo c was passed through the vaginal cuff and cuff was closed with a running stitch. Irrigation of pelvic contents was carried out. PATIENT NAME: KIT EGAN [id number] Estimated blood loss was 50 mL. Sutures removed. Pneumoperitoneum reduced. Abdominal incision was closed with 3-0 Monocryl and Steri-Strip. Dr. Brown then performed a cystoscopy, which revea led bilateral ureteral jets. Estimated blood loss was 50 mL. Sponge and needle counts w ere correct at the end of the case. The patient tolerated the procedure well and recovered in good condition. Dictated By: Angel Atkins III, MD WT: OP:F.CORTEZ/RAHUL/DIONNE Conf#: [id number]/DID#: [id number] Authenticated by Angel Atkins MD On 03/01/2019 10:08:45 PM Electronically Signed by Angel Atkins III, MD o n 03/01/19 at 2209 PATIENT NAME: KIT EGAN [id number] 2019-03-01 08:56:00-00:00 [id number] [facility] [address] [place] [address] PATIENT NAME: KIT EGAN ADMIT DATE: ACCOUNT NO: [id number] ROOM NO: [facility] AGE: 28 SEX: F ADMITTING PHYSICIAN: Angel Atkins III, MD ATTENDING PHYSICIAN: Angel Atkins III, MD OPERATION DATE: 03/01/2019 PREOPERATIVE DIAGNOSES: 1. Menorrhagia. 2. Anemia. 3. Adenomyosis. 4. Morbid obesity. POSTOPERATIVE DIAGNOSES: 1. Menorrhagia. 2. Anemia. 3. Adenomyosis. 4. Morbid obesity. PROCEDURE: Cystourethroscopy. SURGEON: Concha Brown MD ACCOUNT ADJUSTER: ANESTHESIA: General endotracheal. ESTIMATED BLOOD LOSS: Zero for this portion of t he procedure. INDICATION: Ms. Montalvo is a 28-year-old femal e who was undergoing laparoscopic hysterectomy. At the conclusion of the procedure, it was asked that cystourethroscopy be performed to evaluate the integrity of the lower urinary tract. FINDINGS: Cystourethroscopy revealed ureteral orifices in the normal anatomical location. Excellent bilateral ureteral efflux wa s visualized. There was no evidence of bladder lesions or injury. PROCEDURE IN DETAIL: The patient was soledad en to the operating room where she was prepped and draped in the usual sterile fashion in the dorsal lithotomy position. A Holman catheter was placed through th e urethral meatus. Initially, a total laparoscopic hysterectomy and bi lateral salpingectomy was performed by Dr. Viktor Atkins. At the conclusion of this p rocedure, I proceeded with cystourethroscopy. Holman catheter was removed. Cystourethroscopy wa s then performed with a 70-degree cystoscope revealing the above noted f indings. A complete bladder survey with full bladder dis tention was performed. Holman catheter was replaced. PATIENT NAME: KIT EGAN [id number] The patient tolerated the procedure well. Sponge , lap, and needle counts were correct x2. She was taken to the recovery room i n stable condition. Dictated By: Concha Brown MD WT: OP:FPRICILA/MARY/NTS Conf#: [id number]/DID#: [id number] Authenticated by Concha Brown MD On 03/04/20 08:05:00 AM at 0805 PATIENT NAME: KIT EGAN [id number] 2019-02-28 11:52:00-00:00 [id number] [facility] [address] [place] [address] PATIENT NAME: KIT EGAN ADMIT DATE: ACCOUNT NO: [id number] ROOM NO: AGE: 28 SEX: F ADMITTING PHYSICIAN: ATTENDING PHYSICIAN: Angel Atkins III, MD ADMISSION DATE: 03/01/2019 ADMITTING DIAGNOSES: Pelvic pain, menorrhagia, d ysmenorrhea, and anemia. HISTORY OF PRESENT ILLNESS: The patient is a 28- year-old 4, para 4, last menstrual period was 2 weeks ago, presented with heavy flow, nonresponsive to nonsteroidals and to oral contraceptives. Bec ause of deep dyspareunia and pelvic pain and anemia down to 8.9 g of hemoglobin, a TLH-BS was suggested. She has had a past history of significant anemia. La st Pap smear was in 2017, it was negative. PAST MEDICAL HISTORY: None known. ALLERGIES: NONE KNOWN. PAST SURGICAL HISTORY: Breast reduction in 2006 and tonsils out. REVIEW OF SYSTEMS: Otherwise, negative e xcept for dyspareunia and pelvic pain. SOCIAL HISTORY: Nonsmoking, nondrinking. FAMILY HISTORY: Positive for breast cancer in he r aunt and possible ovarian cancer in an aunt. PHYSICAL EXAMINATION: VITAL SIGNS: Blood pressure was 130/90. Weight 3 03 pounds. Height 5 feet 5 inches. GENERAL: A well-developed and well-nourished Afr ican-Italian female, in no apparent distress. HEENT: Normocephalic. PERRLA. EOMs intact. Scler ae nonicteric. Oropharynx clear. HEART: Regular rate and rhythm. No murmur or gal lop. LUNGS: Clear. EXTREMITIES: Without clubbing, cyanosis, or gareth a. BREASTS: Without tender, mass, or discharge. ABDOMEN: Bowel sounds are positive. PELVIS: Difficult to do secondary to obesity; ho wever, cervix was visualized, was normal. RECTOVAGINAL: Deferred. NEUROLOGICAL: Grossly intact. MUSCULOSKELETAL: Grossly intact. IMPRESSION: Menorrhagia, dyspareunia, pelvic elizabeth n, anemia, probable PATIENT NAME: KIT EGAN [id number] adenomyosis. PLAN: TLH-BS. Informed consent and risks and nora efits of the procedure were explained to the patient including the risk of b lood loss; injury to bowel, bladder, and ureter; risk of infection. The patient understands these risks and wished to proceed with above operation. I have a nswered all her questions. Dictated By: Angel Atkins III, MD WT: HP:ISIS/RAHUL/DIONNE Conf#: [id number]/DID#: [id number] Authenticated by Angel Atkins MD On 03/01/2019 08:57:40 AM Electronically Signed by Angel Atkins III, MD o n 03/01/19 at 0858 PATIENT NAME: KIT EGAN [id number]
--- NOTE | 2023-04-01 16:10 | RAD REPORT ---
EXAM DESCRIPTION: CT - Ct Stroke Brain Wo Cont - 04/01/2023 3:58 pm CLINICAL HISTORY: STROKE ALERT COMPARISON: No comparisons TECHNIQUE: Noncontrast head CT images ad were obtained without IV contrast. Multiplanar reformats we re generated and reviewed. All CT scans are performed using dose optimization technique as appropriate and may include automated exposure control or mA/KV adjustment according to patient size. FINDINGS: No intracranial hemorrhage, mass, or edema. Incidentally noted partially empty sella. Normal ventricular caliber for age. Valle-white matter differentiation is preserved, without evidence of acute infarct. No abnormal extra- axial fluid collections. Mastoid air cells and visualized portions of the paranasal sinuses are clear. No acute bony findings. IMPRESSION: No evidence of an acute intracranial process. Incidentally noted partially empty sella, which is nonspecific but could relate to idiopathic intracr anial hypertension in the appropriate clinical setting. The findings were communicated to Demarco Gore on 04/01/2023 at 15:57 hours.
[2023-04-01 16:14] LABS: Absolute Lymphocytes (CBC) 2.8 K/uL (0.7-4.9); Hematocrit 39.4 % (36.0-45.0); Lymphocytes % 37.6 % (15.3-44.8); MCV 94.1 fL (80-100); MPV 7.1 fL (7.6-11.3); RBC Red Blood Cell Count 4.18 M/uL (3.86-4.86)
[2023-04-01] MEDS ORDERED: FOLIC ACID 5 MG/ML VIAL ONE (16:18)
[2023-04-01] MEDS ORDERED: NA CHLORIDE 0.9% 1,000 ML ONE (16:18)
[2023-04-01 16:21] LABS: Protime INR 1.01
--- NOTE | 2023-04-01 16:31 | RAD REPORT ---
EXAM DESCRIPTION: CT - Head angio - 04/01/2023 4:09 pm CLINICAL HISTORY: Numbness;Weakness COMPARISON: Ct Stroke Brain Wo Cont dated 04/01/2023; Neck Angio dated 04/01/2023 TECHNIQUE: Axial CT angiography images of the head was performed with multiplanar and maximum intens ity projection reconstructions. Images performed following intravenous administration of 100mL Isovue 370. All CT scans are performed using dose optimization technique as appropriate and may include automated exposure control or mA/KV adjustment according to patient size. FINDINGS: No evidence of large vessel occlusion. No evidence of aneurysm or dissection flap is detec mahesh. No flow-limiting stenosis or vascular malformation identified. Antegrade flow is seen in the vertebral arteries. The vertebral arteries are codominant. The visualized dural venous sinuses are grossly patent. IMPRESSION: No evidence of large vessel occlusion or flow-limiting stenosis.
--- NOTE | 2023-04-01 16:33 | RAD REPORT ---
EXAM DESCRIPTION: CT - Neck Angio - 04/01/2023 4:09 pm CLINICAL HISTORY: weakness;Numbness COMPARISON: No comparisons TECHNIQUE: Axial CT angiography images of the head was performed with multiplanar and maximum intens ity projection reconstructions. Images performed following intravenous administration of 100mL Isovue 370. All CT scans are performed using dose optimization technique as appropriate and may include automated exposure control or mA/KV adjustment according to patient size. Quantification of carotid stenosis, if any, is performed according to NASCET criteria. FINDINGS: A left aortic arch is identified with normal three vessel configuration of the great vesse ls. No significant flow abnormality is seen of the common carotid bilaterally. No significant stenosis is identified involving the cervical segments of both internal carotid arteri es. Normal flow is seen within both vertebral arteries. IMPRESSION: No significant flow abnormality of the neck vessels is identified. CAROTID STENOSIS REFERENCE USING NASCET CRITERIA: % ICA stenosis = (1 - narrowest ICA diameter/diameter of distal cervical ICA) x 100. Mild - <50% stenosis. Moderate - 50-69% stenosis. Severe - 70-94% stenosis. Near occlusion - 95-99% stenosis. Occluded - 100% stenosis.
[2023-04-01] MEDS ORDERED: TENECTEPLASE 50 MG/10 ML VIAL IV ONE (16:36)
[2023-04-01 16:39] LABS: ALT/SGPT 23 U/L (13-56); AST/SGOT 9 U/L (15-37); Alkaline Phosphatase 80 U/L (45-117); BUN Blood Urea Nitrogen 15 mg/dL (7-18); Bicarbonate 25 mEq/L (21-32); Bilirubin Direct 0.2 mg/dL (0-0.2); Bilirubin Indirect, Calculated 0.1 mg/dL (0.2-0.8); Bilirubin Total 0.3 mg/dL (0.2-1.0); Glomerular Filtration Rate 85 ml/min (=/>90); Glucose Level 97 mg/dL (74-106); Magnesium 1.9 mg/dL (1.6-2.4); Potassium 3.6 mEq/L (3.5-5.1); Protein, Total 8.7 g/dL (6.4-8.2); Sodium Level 137 mEq/L (136-145)
[2023-04-01 16:45] LABS: Troponin High Sensitivity < 3.0 pg/mL (<58.9)
--- NOTE | 2023-04-01 17:04 | RAD REPORT ---
EXAM DESCRIPTION: Anay Single View04/01/2023 4:44 pm CLINICAL HISTORY: left arm weakness COMPARISON: No comparisons TECHNIQUE: Portable AP view of the chest. FINDINGS: Superimposition of soft tissues somewhat limits evaluation. The lungs are clear. No pneum othorax or effusion. The cardiomediastinal contours are unremarkable. IMPRESSION: No acute cardiopulmonary process.
[2023-04-01] MEDS ORDERED: METOCLOPRAMIDE 10 MG/2mL INJ ONE (17:27)
[2023-04-01 17:41] LABS: Barbiturates NEGATIVE (NEGATIVE); Benzodiazepines NEGATIVE (NEGATIVE); Cocaine NEGATIVE (NEGATIVE); METHAMPHETAM NEGATIVE (NEGATIVE); Methadone NEGATIVE (NEGATIVE); Opiates NEGATIVE (NEGATIVE); Phencyclidine NEGATIVE (NEGATIVE); THC Cannibis NEGATIVE (NEGATIVE)
--- NOTE | 2023-04-01 18:05 | ER ---
Nurse's Notes [facility] Name: Katia Green Age: 32 yrs Sex: Female : 1990 Arrival Date: 04/01/2023 Time: 15:36 Bed 15 Private MD: Diagnosis: Paresthesia of skin;Weakness;Headache Presentation: 04/01 15:41 Chief complaint: Numbness in left face, left arm, and left leg that started at 1445 hb today. Coronavirus screen: At this time, the client does not indicate any symptoms associated with coronavirus-19. Ebola Screen: No symptoms or risks identified at this time. Initial Sepsis Screen: Does the patient meet any 2 criteria? No. Patient's initial sepsis screen is negative. Does the patient have a suspected source of infection? No. Patient's initial sepsis screen is negative. Risk Assessment: Do you want to hurt yourself or someone else? Patient reports no desire to harm self or others. Onset of symptoms was April 01, 2023 at 14:45. 15:41 Method Of Arrival: Ambulatory hb 15:41 Acuity: TOO 2 hb Historical: - Allergies: 16:42 Bactrim; ld1 - PMHx: 16:42 None; ld1 - PSHx: 16:42 Tonsillectomy; hysterectomy; Right Ovary; Cholecystectomy; ld1 - Immunization history:: Adult Immunizations up to date, Client reports receiving the 2nd dose of the Covid vaccine. - Social history:: Smoking status: Patient denies any tobacco usage or history of. Patient/guardian denies using alcohol. Screenin:42 [facility] ED Fall Risk Assessment (Adult) History of falling in the last 3 months, ld1 including since admission No falls in past 3 months (0 pts). Abuse screen: Denies threats or abuse. Denies injuries from another. Nutritional screening: No deficits noted. Tuberculosis screening: No symptoms or risk factors identified. Assessment: 16:11 Reassessment: Pt still in CT. ld1 16:15 General: Appears in no apparent distress. comfortable, Behavior is calm, cooperative, ld1 appropriate for age. Pain: Complains of pain in face Pain does not radiate. Pain currently is 7 out of 10 on a pain scale. Quality of pain is described as throbbing. Neuro: Level of Consciousness is awake, alert, obeys commands, Oriented to person, place, time, situation, Assistant Winemaker are weak on left Moves all extremities. Gait is steady, Speech is normal, Facial droop on left, Reports weakness in left arm and left leg. Cardiovascular: Capillary refill < 3 seconds Patient's skin is warm and dry. Rhythm is sinus rhythm. 16:15 Respiratory: Airway is patent Respiratory effort is even, unlabored. GI: Abdomen is ld1 round non-distended. : No signs and/or symptoms were reported regarding the genitourinary system. EENT: No signs and/or symptoms were reported regarding the EENT system. Derm: No signs and/or symptoms reported regarding the dermatologic system. Musculoskeletal: No signs and/or symptoms reported regarding the musculoskeletal system. 16:28 Reassessment: Dr. Gore and Kin Pérez at bedside discussing TNK with patient. Patient ld1 agreed to receiving medication at this time. 17:15 Reassessment: Pt reports symptoms being resolved at this time. ld1 18:47 Reassessment: Patient appears in no apparent distress at this time. No changes from ld1 previously documented assessment. Patient and/or family updated on plan of care and expected duration. Pain level reassessed. Patient is alert, oriented x 3, equal unlabored respirations, skin warm/dry/pink. Patient denies pain at this time. Patient states symptoms have improved. 19:38 Reassessment: Patient appears in no apparent distress at this time. Patient and/or aa9 family updated on plan of care and expected duration. Pain level reassessed. Patient is alert, oriented x 3, equal unlabored respirations, skin warm/dry/pink. Patient denies pain at this time. Neuro: Level of Consciousness is awake, alert, obeys commands, Oriented to person, place, time, situation, Assistant Winemaker are equal bilaterally Moves all extremities. Gait is steady, Speech is normal, Facial symmetry appears normal. Vital Signs: 15:41 BP 171 / 76; Pulse 102; Resp 18; Temp 98.1; Pulse Ox 100% on R/A; Weight 131.54 kg; hb Height 5 ft. 5 in. ; Pain 0/10; 16:33 Weight 134.35 kg; kc6 16:42 BP 151 / 81; Pulse 78; Resp 24; Temp 98.1(O); Pulse Ox 100% on R/A; Weight 134.35 kg; ld1 Height 5 ft. 5 in. ; Pain 7/10; 17:15 BP 131 / 63; Pulse 80; Resp 18; Pulse Ox 100% on R/A; Pain 0/10; ld1 18:47 BP 124 / 71; Pulse 81; Resp 18; Pulse Ox 100% on R/A; Pain 0/10; ld1 16:42 Body Mass Index 49.29 (134.35 kg, 165.1 cm) ld1 15:41 Pain Scale: Adult hb 16:42 Pain Scale: Adult ld1 17:15 Pain Scale: Adult ld1 18:47 Pain Scale: Adult ld1 NIH Stroke Scale Scores: 16:58 NIHSS Score: 4 cp ED Course: 15:40 Patient arrived in ED. ts1 15:41 Kin Pérez PA is PHCP. cp 15:41 Chester Daniel DO is Attending Physician. cp 15:46 Triage completed. hb 15:54 Demarco Gore MD is Attending Physician. cp 15:59 CT Stroke Brain w/o Contrast In Process Unspecified. EDMS 16:00 No provider procedures requiring assistance completed. Inserted saline lock: 22 gauge ld1 in left antecubital area, using aseptic technique. Blood collected. 16:08 Leanna Daniel, RN is Primary Nurse. ld1 16:11 CT Head Angio In Process Unspecified. EDMS 16:11 CT Neck Angio In Process Unspecified. EDMS 16:42 Patient has correct armband on for positive identification. Placed in gown. Bed in low ld1 position. Call light in reach. Side rails up X2. satellite project site monitor on. Pulse ox on. NIBP on. Door closed. Noise minimized. Warm blanket given. 16:46 Stroke CXR 1 View In Process Unspecified. EDMS 17:19 PREGU Sent. kc6 17:19 UDS Sent. kc6 18:03 Jacinto Linder MD is Hospitalizing Provider. cp 19:38 Patient admitted, IV remains in place. aa9 Administered Medications: 16:00 Drug: NS 0.9% IV 1000 ml Route: IV; Rate: 1 bolus; Site: left antecubital; ld1 16:00 Drug: foLIC Acid IVPB 1 mg Route: IVPB; Site: left antecubital; ld1 16:30 Not Given (Duplicate Order): metoCLOPramide IVP 20 mg IVP once; over 15 mins rn 16:35 Drug: TNK FOR STROKE - Tenecteplase IV 0.25 mg/kg {Co-Signature: kc6 (Henry, jeremiah1 Gretchen GHOSH).} {Note: administered 5mL of TNK at 1635.} Route: IV; Rate: per protocol; Site: left antecubital; 16:37 Drug: TNK FOR STROKE - Tenecteplase IV 0.25 mg/kg {Co-Signature: kc6 (jeremiah Figueroa1 Gretchen GHOSH).} Route: IV; Rate: per protocol; Site: left antecubital; 16:40 Drug: NS 0.9% IV 1000 ml Route: IV; Rate: 1000 ml; Site: left antecubital; ld1 17:13 Drug: metoCLOPramide IVP 10 mg Route: IVP; Site: left antecubital; ld1 Medication: 16:42 VIS not applicable for this client. ld1 Outcome: 18:05 Decision to Hospitalize by Provider. cp 19:38 Admitted to ICU accompanied by nurse, room 1- ICU, on monitor, with chart, Report aa9 called to Receiving nurse 19:38 Condition: stable 20:24 Patient left the ED. aa9 NIH Stroke Scale - NIH Stroke Score Date: 04/01/2023 Time: 16:58 Total Score = 4 10. Dysarthria (speech clarity - read or repeat words) - 0(Normal) 11. Extinction and Inattention (visual/tactile/auditory/spatial/personal) - 0(No abnormality) 1a. Level of Consciousness (LOC) - 0(Alert) 1b. Level of Consciousness (LOC) (Month \T\ Age) - 0(Both) 1c. LOC Commands (Open \T\ Closes Eyes/Registered Nurse Bone Marrow Transplant) - 0(Both) 2. Best Gaze (Lateral Gaze Paresis) - 0(Normal) 3. Visual Field Loss - 0(No visual loss) 4. Facial Palsy - 1(Minor Paralysis) 5a. Left Arm: Motor (10-second hold) - 1(Drift) 5b. Right Arm: Motor (10-second hold) - 0(No drift) 6a. Left Leg: Motor (5-second hold - always test supine) - 1(Drift) 6b. Right Leg: Motor (5-second hold - always test supine) - 0(No drift) 7. Limb Ataxia (finger/nose \T\ heel/nayak - test with eyes open) - 0(Absent) 8. Sensory Loss (pinprick arms/legs/face) - 1(Mild to moderate loss) 9. Best Language: Aphasia (description/naming/reading) - 0(No aphasia) Initials: cp Signatures: Dispatcher [employer] EDMS Kin Pérez PA PA cp Baxter, Heather RN RN hb Leanna Daniel RN RN ld1 Charisse Dobbs RN RN [id number] Gretchen Figueroa RN RN kc6 Erma Fernández PAS PAS ts1 Demarco Gore MD, rn, Kaitlyn RN kc6 Corrections: (The following items were deleted from the chart) 17:01 15:41 Acuity: TOO 3 hb hb
--- NOTE | 2023-04-01 18:05 | EDPHYS ---
Physician Documentation [facility] Name: Katia Green Age: 32 yrs Sex: Female : 1990 Arrival Date: 04/01/2023 Time: 15:36 Bed 15 Private MD: ED Physician Demarco Gore HPI: 04/01 15:54 This 32 yrs old Female presents to ER via Ambulatory with complaints of Numbness Of cp Arm, Numbness Of Face. 15:54 The patient's problem is reported as weakness, in the left upper extremity. Patient's cp baseline: Neuro: alert and fully oriented, Motor: no deficits, Ambulation: walks without assistance, Speech: normal. 15:54 Associated signs and symptoms: Pertinent negatives: chest pain. cp 15:55 Patient reports intermittent numbness to left side of face and left arm and left left cp times 2 weeks, headache that started left side of head and radiates to across to right. Patient reports weakness of right upper extremity that caused her to drop cup today less than an hour ago. Recently started Phentermine and Semaglutide for weight loss about 1 week ago. Historical: - Allergies: 16:42 Bactrim; ld1 - PMHx: 16:42 None; ld1 - PSHx: 16:42 Tonsillectomy; hysterectomy; Right Ovary; Cholecystectomy; ld1 - Immunization history:: Adult Immunizations up to date, Client reports receiving the 2nd dose of the Covid vaccine. - Social history:: Smoking status: Patient denies any tobacco usage or history of. Patient/guardian denies using alcohol. ROS: 15:54 Constitutional: Negative for fever. cp 15:54 Neuro: Positive for numbness, of the left side of face and left arm and left leg, weakness of left hand. Exam: 15:58 Constitutional: The patient appears in no acute distress, alert, awake, cp non-diaphoretic, non-toxic, well developed, well nourished, obese. 15:58 Head/face: Noted is mild left side facial droop. cp 15:58 Eyes: Periorbital structures: appear normal, Pupils: equal, round, and reactive to cp light and accomodation, Extraocular movements: intact throughout, Conjunctiva: normal, no exudate, no injection, Lids and lashes: appear normal, bilaterally. 15:58 ENT: External ear(s): are unremarkable, Nose: is normal, Mouth: Oral mucosa: moist, Posterior pharynx: Airway: no evidence of obstruction, patent. 15:58 Neck: ROM/movement: is normal, is supple, without pain, no range of motions limitations. 15:58 Chest/axilla: Inspection: normal. 15:58 Cardiovascular: Rate: tachycardic, Rhythm: regular, Edema: is not appreciated, JVD: is not appreciated. 15:58 Respiratory: the patient does not display signs of respiratory distress, Respirations: normal, no use of accessory muscles, no retractions, labored breathing, is not present, Breath sounds: are clear throughout, no decreased breath sounds, no stridor, no wheezing. 15:58 Abdomen/GI: Inspection: abdomen appears normal, Bowel sounds: active, all quadrants, Palpation: abdomen is soft and non-tender, in all quadrants. 15:58 Neuro: Orientation: to person, place \T\ time. Mentation: is normal, Cerebellar function: Romberg testing is negative, normal finger to nose testing, heel to nayak testing is normal, Motor: moves all fours, mild weakness left arm, Sensation: numbness, that is mild, of the left side of face and left arm and left leg. 16:15 Radiologist reports: no acute findings cp Vital Signs: 15:41 BP 171 / 76; Pulse 102; Resp 18; Temp 98.1; Pulse Ox 100% on R/A; Weight 131.54 kg; hb Height 5 ft. 5 in. ; Pain 0/10; 16:33 Weight 134.35 kg; kc6 16:42 BP 151 / 81; Pulse 78; Resp 24; Temp 98.1(O); Pulse Ox 100% on R/A; Weight 134.35 kg; ld1 Height 5 ft. 5 in. ; Pain 7/10; 17:15 BP 131 / 63; Pulse 80; Resp 18; Pulse Ox 100% on R/A; Pain 0/10; ld1 18:47 BP 124 / 71; Pulse 81; Resp 18; Pulse Ox 100% on R/A; Pain 0/10; ld1 16:42 Body Mass Index 49.29 (134.35 kg, 165.1 cm) ld1 15:41 Pain Scale: Adult hb 16:42 Pain Scale: Adult ld1 17:15 Pain Scale: Adult ld1 18:47 Pain Scale: Adult ld1 NIH Stroke Scale Scores: 16:58 NIHSS Score: 4 cp MDM: 15:50 Patient medically screened. cp 16:02 Management of patient was discussed with the following: Landing Gear Mechanic: DR Altamirano who cp recommends TNK administration, CT head and neck angio for large vessel occlusion and transfer if CT angio positive, otherwise admit for continued management with MRI. 16:31 ED course: Dr. Altamirano was consulted by Kin Pérez, recommended TNKase. Patient rn consented and agrees to TNKase. . 17:25 ED course: Reevaluation: Patient reports numbness improved left side of face and left cp arm and left leg. Weakness of left hand improved and mild improvement of headache. 18:05 Data reviewed: vital signs, nurses notes, lab test result(s), EKG, radiologic studies, cp CT scan, plain films. 18:05 Management of patient was discussed with the following: Hospitalist: Noemy Schumacher NP will cp admit after discussion. Independent interpretation of the following test(s) in the Emergency Department EKG: See my EKG interpretation above. Care significantly affected by the following chronic conditions: Obesity. Counseling: I had a detailed discussion with the patient and/or guardian regarding: the historical points, exam findings, and any diagnostic results supporting the discharge/admit diagnosis, lab results, radiology results, the need for further work-up and treatment in the hospital. 04/01 15:51 Order name: Basic Metabolic Panel; Complete Time: 17:03 04/01 17:03 Interpretation: Normal except: GFR 85. 04/01 15:51 Order name: CBC with Diff; Complete Time: 17:03 04/01 17:03 Interpretation: Normal except: MPV 7.1. 06 15:51 Order name: Hepatic Function; Complete Time: 17:03 04/01 17:04 Interpretation: Normal except: AST 9; IBILI, CALC 0.1; TP 8.7; GLOB 4.7; A/G 0.9. 04/01 15:51 Order name: High Sensitivity Troponin; Complete Time: 17:03 06 17:04 Interpretation: Reviewed. 04/01 15:51 Order name: Magnesium; Complete Time: 17:03 04/01 15:51 Order name: Protime (+inr); Complete Time: 17:03 cp 04/01 15:51 Order name: Ptt, Activated; Complete Time: 17:03 cp 04/01 17:04 Interpretation: Reviewed. 04/01 15:51 Order name: UDS cp 04/01 15:52 Order name: PREGU cp 04/01 16:20 Order name: Glucose, Ancillary Testing; Complete Time: 17:03 EDMS 04/01 15:51 Order name: CT Stroke Brain w/o Contrast; Complete Time: 17:03 cp 04/01 17:04 Interpretation: Report reviewed. cp 04/01 15:51 Order name: Stroke CXR 1 View; Complete Time: 17:05 cp 04/01 17:06 Interpretation: Report review. 04/01 15:51 Order name: CT Head Angio; Complete Time: 17:03 cp 04/01 17:05 Interpretation: Report reviewed. 04/01 15:51 Order name: CT Neck Angio; Complete Time: 17:03 cp 04/01 17:05 Interpretation: Report reviewed. 04/01 15:51 Order name: EKG; Complete Time: 15:52 cp 04/01 15:51 Order name: Accucheck; Complete Time: 16:08 cp 04/01 15:51 Order name: Cardiac monitoring; Complete Time: 16:38 cp 04/01 15:51 Order name: EKG - Nurse/Tech; Complete Time: 16:38 cp 04/01 15:51 Order name: IV Saline Lock; Complete Time: 16:08 cp 04/01 15:51 Order name: Labs collected and sent; Complete Time: 16:08 cp 04/01 15:51 Order name: NPO; Complete Time: 16:08 cp 04/01 15:51 Order name: O2 Per Protocol; Complete Time: 16:08 cp 04/01 15:51 Order name: O2 Sat Monitoring; Complete Time: 16:08 cp 04/01 15:51 Order name: Stroke Swallow Screen; Complete Time: 16:40 cp EC:38 Rate is 83 beats/min. Rhythm is regular. NM interval is normal. QRS interval is normal. cp QT interval is normal. T waves are Inverted in lead aVR. Interpreted by me. Reviewed by me. Administered Medications: 16:00 Drug: NS 0.9% IV 1000 ml Route: IV; Rate: 1 bolus; Site: left antecubital; ld1 16:00 Drug: foLIC Acid IVPB 1 mg Route: IVPB; Site: left antecubital; ld1 16:30 Not Given (Duplicate Order): metoCLOPramide IVP 20 mg IVP once; over 15 mins rn 16:35 Drug: TNK FOR STROKE - Tenecteplase IV 0.25 mg/kg {Co-Signature: kc6 (sherry Figueroa RN).} {Note: administered 5mL of TNK at 1635.} Route: IV; Rate: per protocol; Site: left antecubital; 16:37 Drug: TNK FOR STROKE - Tenecteplase IV 0.25 mg/kg {Co-Signature: kc6 (jeremiah Figueroa Gretchen GHOSH).} Route: IV; Rate: per protocol; Site: left antecubital; 16:40 Drug: NS 0.9% IV 1000 ml Route: IV; Rate: 1000 ml; Site: left antecubital; ld1 17:13 Drug: metoCLOPramide IVP 10 mg Route: IVP; Site: left antecubital; ld1 Disposition: 16:30 Co-signature as Attending Physician, Demarco Gore MD I agree with the assessment and rn plan of care. PA/DIRECTOR OF STRATEGIC PROGRAMS's history reviewed, patient interviewed, and examined. 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 Has felt head pressure, no injury, recently started on phentermine and other weight loss medication. No hx of migraines. 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 I agree with assessment and care plan and confirm the diagnosis (es) above. Disposition Summary: 04/01/23 18:05 Hospitalization Ordered Hospitalization Status: Inpatient Admission cp Provider: Jacinto Linder cp Location: Intensive Care Unit cp Condition: Stable cp Problem: new cp Symptoms: have improved cp Bed/Room Type: Standard cp Room Assignment: 1-(04/01/23 18:54) cg Diagnosis - Paresthesia of skin cp - Weakness cp - Headache cp Forms: - Medication Reconciliation Form cp - SBAR form cp NIH Stroke Scale - NIH Stroke Score Date: 04/01/2023 Time: 16:58 Total Score = 4 10. Dysarthria (speech clarity - read or repeat words) - 0(Normal) 11. Extinction and Inattention (visual/tactile/auditory/spatial/personal) - 0(No abnormality) 1a. Level of Consciousness (LOC) - 0(Alert) 1b. Level of Consciousness (LOC) (Month \T\ Age) - 0(Both) 1c. LOC Commands (Open \T\ Closes Eyes/Printed Products Assembler) - 0(Both) 2. Best Gaze (Lateral Gaze Paresis) - 0(Normal) 3. Visual Field Loss - 0(No visual loss) 4. Facial Palsy - 1(Minor Paralysis) 5a. Left Arm: Motor (10-second hold) - 1(Drift) 5b. Right Arm: Motor (10-second hold) - 0(No drift) 6a. Left Leg: Motor (5-second hold - always test supine) - 1(Drift) 6b. Right Leg: Motor (5-second hold - always test supine) - 0(No drift) 7. Limb Ataxia (finger/nose \T\ heel/nayak - test with eyes open) - 0(Absent) 8. Sensory Loss (pinprick arms/legs/face) - 1(Mild to moderate loss) 9. Best Language: Aphasia (description/naming/reading) - 0(No aphasia) Initials: cp Signatures: Dispatcher [employer] EDMS Demarco Gore MD MD rn Page, Corey, PA PA cp Fiona Durán RN RN cg Sims, Lauren, RN RN ld1 Gretchen Figueroa RN kc6 Corrections: (The following items were deleted from the chart) 16:38 15:55 Patient reports intermittent numbness to left side of face and left arm cp and left left times 2 weeks, headache that started left side of head and radiates to across to right. Patient reports weakness of right upper extremity that caused her to drop cup today less than an hour ago. Recently started Phentermine and Ozympic for weight loss about 1 week ago. cp 17:00 16:06 NIHSS Score: 2 cp cp 18:54 18:05 cp cg
--- NOTE | 2023-04-01 18:58 | P.HP ---
Certification for Inpatient Patient admitted to: Observation With expected LOS: <2 Midnights Patient will require the following post-hospital care: None Practitioner: I am a practitioner with admitting privileges, knowledge of patient current condition, hospital course, and medical plan of care. Services: Services provided to patient in accordance with Admission requirements found in Title 42 Section 412.3 of the Code of Federal Regulations Patient History Date of Service: 04/01/23 Reason for admission: Left-sided weakness History of Present Illness: 32-year-old female with no known significant past medical history presents to the emergency department chief complaint of left-sided weakness/paresthesias. She reports that she was at 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 She presents to the emergency department and said the window after discussion with ED staff, neurology there was found that she was a candidate for TNK. Her CT head was negative for acute findings, CTA head and neck negative for large vessel occlusion chest x-ray was unremarkable. She received TNK 1637. Her labs are unremarkable, of note she did start semaglutide and phentermine approximately a week and a half ago. She does not smoke no other significant risk factors identified. After discussion with neurology patient will be admitted to ICU for close monitoring after receiving TNK. 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 moist/pink, EOMI, Sclerae nonicteric Neck: Supple, 2+ carotid pulse no bruit, No LAD, Without JVD or thyroid abnormality Respiratory: Clear to auscultation bilaterally, Normal air movement Cardiovascular: Regular rate/rhythm, Normal S1 S2 Capillary refill: <2 Seconds Gastrointestinal: Normal bowel sounds, No tenderness Musculoskeletal: No tenderness Integumentary: No rashes Neurological: Normal gait, Normal speech, Normal strength at 5/5 x4 extr, Normal tone, Cranial nerves 3-12 intact, Normal affect, Other (NIH 1), Abnormal sensation Lymphatics: No axilla or inguinal lymphadenopathy - Studies Laboratory Data (last 24 hrs) 04/01/23 16:04: PT 11.1, INR 1.01, APTT 29.8 04/01/23 16:04: WBC 7.40, Hgb 12.9, Hct 39.4, Plt Count 359 04/01/23 16:04: Sodium 137, Potassium 3.6, BUN 15, Creatinine 0.91, Glucose 97, Magnesium 1.9, Total Bilirubin 0.3, AST 9 L, ALT 23, Alkaline Phosphatase 80 Assessment and Plan - Plan Assessment: Left-sided weakness/paresthesias S/P TNK Plan: Left-sided weakness/paresthesias S/P TNK Neurology consult, MRI stroke protocol ordered. CTA head and neck negative for large vessel occlusion. NIH is currently 1. Echocardiogram, hypercoagulable labs ordered. Symptoms are improving but have not completely resolved. Hold aspirin/Lovenox for 24 hours after TNK. DVT PPX: SCDs Code status: Full Discharge Plan: Home Plan to discharge in: 24 Hours - Advance Directives Does patient have a Living Will: No Does patient have a Durable POA for Healthcare: No - Code Status/Comfort Care Code Status Assessed: Yes (Full code) Critical Care: No Time Spent Managing Pts Care (In Minutes): 55
[2023-04-01] MEDS: ATORVASTATIN 40 MG TAB PO SCH (21:16)
[2023-04-01 21:36] VITALS: O2SAT 100
[2023-04-01 22:12] VITALS: BMI 48.0
[2023-04-02 05:26] LABS: Absolute Lymphocytes (CBC) 2.9 K/uL (0.7-4.9); Hematocrit 32.6 % (36.0-45.0); Lymphocytes % 41.6 % (15.3-44.8); MCV 94.7 fL (80-100); MPV 7.4 fL (7.6-11.3); RBC Red Blood Cell Count 3.45 M/uL (3.86-4.86)
[2023-04-02 06:06] LABS: Potassium 3.7 mEq/L (3.5-5.1); Thyroid Stimulating Hormone 1.09 uIU/mL (0.358-3.740)
[2023-04-02] MEDS: FOLIC ACID 1 MG TABLET PO SCH (07:53)
[2023-04-02] MEDS ORDERED: POTASSIUM CL SA 10 MEQ TAB PO ONE (09:00)
--- NOTE | 2023-04-02 12:35 | RAD REPORT ---
EXAM DESCRIPTION: MRI - Brain Wo Cont - 04/02/2023 11:17 am CLINICAL HISTORY: cva COMPARISON: Noncontrast head CT 04/01/2023 TECHNIQUE: Multiplanar multisequence MRI of the brain performed without IV contrast. FINDINGS: No evidence of acute infarct or other diffusion signal abnormality. No evidence of acute intracranial hemorrhage or abnormal extra-axial fluid collections. Mild diffuse parenchymal volume loss. Ventricular caliber otherwise within normal for age. Partially empty sella again noted. Midline structures otherwise unremarkable. No white matter signal abnormalities. No mass effect or midline shift. Major vascular flow voids are preserved. Mastoid air cells and paranasal sinuses are clear. IMPRESSION: No acute intracranial process. No evidence of ventriculomegaly or mass effect. Partially empty sella again seen.
[2023-04-02] MEDS: ACETAMINOPHEN 325 MG TABLET PO PRN ×2 (12:38→21:03)
--- NOTE | 2023-04-02 15:35 | P.PN ---
Subjective Date of Service: 04/02/23 Chief Complaint: Left-sided weakness S/P tenecteplase yesterday. Overnight, her neurologic deficits have completely resolved. She reports having these symptoms intermittently over the last week. Currently, she denies any chest pain, paresthesias, weakness, numbness, or tingling. Review of Systems 10-point ROS is otherwise unremarkable Physical Examination - Vital Signs Temperature: 96.9 F Blood Pressure: 116/67 Pulse: 76 Respirations: 20 Pulse Ox (%): 100 - Physical Exam General: Alert, In no apparent distress, Oriented x3 HEENT: Atraumatic, Sclerae nonicteric Neck: JVD not distended Respiratory: Clear to auscultation bilaterally, Normal air movement Cardiovascular: No edema, Regular rate/rhythm, Normal S1 S2, No gallops, No rubs, No murmurs Gastrointestinal: Normal bowel sounds, Soft and benign, Non-distended, No tenderness, No rebound, No guarding Musculoskeletal: No clubbing Integumentary: No rashes Neurological: Normal speech, Normal strength at 5/5 x4 extr, Normal tone, Sensation intact, Cranial nerves 3-12 intact, Normal reflexes 2+, Normal affect - Studies Laboratory Data (last 24 hrs) 04/01/23 16:04: PT 11.1, INR 1.01, APTT 29.8 04/01/23 16:04: WBC 7.40, Hgb 12.9, Hct 39.4, Plt Count 359 04/01/23 16:04: Sodium 137, Potassium 3.6, BUN 15, Creatinine 0.91, Glucose 97, Magnesium 1.9, Total Bilirubin 0.3, AST 9 L, ALT 23, Alkaline Phosphatase 80 Assessment And Plan - Plan NIH Stroke Scale 1a. Level of consciousness: 0 - Alert; keenly responsive 1b. LOC questions: 0 - Both questions right 1c. LOC commands: 0 - Performs both tasks 2. Best Gaze: 0 - Normal 3. Visual: 0 - No visual loss 4. Facial Palsy: 0 - Normal symmetry 5a. Motor left arm: 0 - No drift for 10 seconds 5b. Motor right arm: 0 - No drift for 10 seconds 6a. Motor left le - No drift for 5 seconds 6b. Motor right le - No drift for 5 seconds 7. Limb ataxia: 0 - No ataxia 8. Sensory: 0 - Normal; no sensory loss 9. Best Language: 0 - Normal; no aphasia 10. Dysarthria: 0 - Normal 11. Extinction and Inattention: 0 - No abnormality 12. Distal motor function: 0 - No abnormality Total Score: 0 # Left-Sided Weakness/Paresthesias s/p Tenecteplase - Consulted Neurology and spoke with Dr. Altamirano - recommendations appreciated - Recommends atorvastatin + folic acid - If repeat CT head is without intracranial bleed, start aspirin + clopidogrel - No neurologic deficits on my exam - NIHSS = 0 - q4hr neurochecks - Radiology: - CT head = "no evidence of an acute intracranial process. Incidentally noted partially empty sella, which is nonspecific but could relate to idiopathic intracranial hypertension in the appropriate clinical setting." - CT head angiogram = "no evidence of large vessel occlusion or flow-limiting stenosis" - CT neck angiogram = "no significant flow abnormality of the neck vessels is identified." - MR brain = "no acute intracranial process. No evidence of ventriculomegaly or mass effect. Partially empty sella again seen." - Transthoracic echocardiogram = pending - Repeat CT head after 24 hours post-TNK (~ 17:00 today) - PT evaluation requested - Risk profile: - Hgb A1c: 5.5 % - Lipid panel: TC 153, LDL 90, HDL 47, TG 80 - TSH: 1.09 # Chronic Headaches - concern for Idiopathic Intracranial Hypertension (Pseudotumor Cerebri) # Morbid Obesity - BMI 48.1 kg/m2 - CT with partial empty sella further supports IIH - Consulted Neurology and spoke with Dr. Altamirano - recommendations appreciated - Recommends against lumbar puncture at this time given recent tenecteplase - Recommended starting acetazolamide 250 mg daily Jacinto Linder M.D.
[2023-04-02] MEDS: acetaZOLAMIDE 250 MG TAB PO SCH (17:00)
--- NOTE | 2023-04-02 17:18 | RAD REPORT ---
EXAM DESCRIPTION: CT - Head Brain Wo Cont - 04/02/2023 5:10 pm CLINICAL HISTORY: R/O hemorrhagic conversion after TNK Headache, drowsiness, CVA COMPARISON: Head angio dated 04/01/2023; Ct Stroke Brain Wo Cont dated 04/01/2023 TECHNIQUE: All CT scans are performed using dose optimization technique as appropriate and may inclu de automated exposure control or mA/KV adjustment according to patient size. FINDINGS: No intracranial hemorrhage, hydrocephalus or extra-axial fluid collection.No areas of brai n edema or evidence of midline shift. The paranasal sinuses and mastoids are clear. The calvarium is intact. IMPRESSION: No acute intracranial abnormality.
--- NOTE | 2023-04-02 18:52 | CON ---
Reason For Consultation: Consultation called because of a possible stroke. History Of Present Illness: Ms. Green is a 32-year-old right-handed patient with no significant past medical history who comes to [facility] with sudden onset left face and ar m numbness and tingling along with weakness. She also had similar sensation but perhaps to lesser ex tent in the left lower extremity. Symptom onset was at 2:45 while at [facility] and she came to [facility] within the window for TNKase for thrombolysis and that was given. She did say she began to see improvement and at the time of my evaluation, which is the following day, she is in ICU, she said she is about 90% back to normal in terms of the left face and the left arm, also doing better in addition to the leg. She was able to stand and ambulate with the physical therapist without an assi stive device and did not lose her balance and did not require any assistance. Her evaluation which d id include the head CT scan at the time she came in, did not show an acute ischemic or hemorrhagic st roke. After her admission to ICU and the MRI being done earlier today, the study shows again no acut e ischemic or hemorrhagic change. No evidence of ventriculomegaly or mass or any abnormalities. How ever, there is a partially empty sella again noted and this was compared to the CT scan done on 04/01, MRIs on 04/02/2023. She has now been over 24 hours since receiving the TNKase and had a repea t head CT scan that showed no hemorrhagic transformation and no other abnormalities. The question is raised of her having a pseudotumor cerebri as the empty sella is there and the patient does have a h istory of some headaches, but no clear loss or blurring of vision, although that may be intermittent. The patient was treated for stroke with folic acid, aspirin, and Lipitor and she is actually starte d on Diamox for the possibility of this pseudotumor cerebri. It should be noted that her body habitu s is large. She is 288 pounds and 5 feet 5 inches and her BMI is over 40. Past Medical History: No significant past medical history except independent headaches. Past Surgical History: Breast reduction, hysterectomy, oophorectomy, cholecystectomy. She is with her in the room with her. More stress recently in terms of social history. 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 History i s positive for stroke and heart disease and hypertension in her father. Social History: No alcohol, tobacco, or IV drug use. She drinks caffeinated beverages. Review of Systems: Aside from the left-sided numbness in the face, arm, and leg and mild weakness, there is no findings such as fevers, chills, nausea, vomiting, myalgias, or arthralgias. She has had some weight gain in the last year after quitting her exercise program. No other positives on systems review. Physical Examination: Vital Signs: Blood pressure 116/67, pulse 76, respiratory rate 16, temperature 97.9, oxygen saturati on 100%. General: Ms. Green is resting in ICU bed. She is in no significant distress. HEENT: She is normocephalic, atraumatic. Sclerae anicteric. Oropharynx is pink and moist. Neck: Supple. Chest: Clear. Heart: Regular. Extremities: Show no clubbing, cyanosis, or edema. Neurological: Alert, oriented to person, place, time, and situation. No expressive or receptive aph asias. Cranial nerves show perhaps subtle asymmetry in the left face compared to right in terms of s ensation, however, in the arm and leg evaluation, no weakness or asymmetries in the upper or lower ex tremities. Sensory examination intact in upper and lower extremities. Coordination intact in upper and lower extremities. Reflexes 2+ in the upper and lower extremities and symmetric. Her gait, she has good stance, stride, and arm swing. Laboratory Studies: Complete blood count with differential essentially normal. Coagulation panel is normal. She does have a stroke in the young workup pending including protein C, protein S, factor V Leiden mutation, antithrombin 3 activity. Her basic metabolic panel essentially unremarkable and no rmal glucose with hemoglobin A1c 5.5. Liver function studies normal. Her LDL cholesterol is 90, HDL 47, B12 of 649. Vitamin D is low at 15.2. She has homocysteine pending. Urine drug screen is nega tive. RPR pending. Assessment: Ms. Green is a 32-year-old patient with possible transient ischemic attack and she did r eceive TNKase. No evidence of an acute ischemic or hemorrhagic stroke. She does have some residual left-sided sensory loss in the face, but not in the arm and leg. She has no focal motor deficits, di fficulty with her coordination or gait. She has large body habitus and there is a potential for pseu dotumor cerebri. She does have some headaches in her history. Plan: 1.On discharge, followup with Dr. Mike Cha for a full eye evaluation to rule out any possible edema. 2.Aspirin 81 mg daily and may also give Plavix 75 mg daily. 3.May start acetazolamide 250 mg daily. 4.Folic acid 1 mg daily and she does have low vitamin D, and 5000 units of vitamin D daily. 5.After discharge, she may follow up in Dr. Altamirano's clinic within the month. JEANETTE/JOEL Voice ID: [id number] Report ID: [id number]
[2023-04-02] MEDS: ATORVASTATIN 40 MG TAB PO SCH (21:00)
[2023-04-03 05:31] LABS: Hematocrit 35.5 % (36.0-45.0)
[2023-04-03 05:36] LABS: RPR (Rapid Plasma Reagin) NON-REACT (NON-REACT)
--- NOTE | 2023-04-03 08:17 | ECHO ---
HEIGHT: 5 ft 5 in WEIGHT: 288 lb 12.889 oz DATE OF STUDY: 04/02/[address]: Alexis Schumacher NP 2-DIMENSIONAL: YES M.MODE: YES DOPPLER: YES COLOR FLOW: YES TDS: PORTABLE: YES DEFINITY: BUBBLE STUDY: YES DIAGNOSIS: STROKE CARDIAC HISTORY: CATHERIZATION: NO SURGERY: NO PROSTHETIC VALVE: NO PACEMAKER: NO MEASUREMENTS (cm) DIASTOLIC (NORMALS) SYSTOLIC (NORMALS) IVSd 1.2 (0.6-1.2) LA Diam 2.7 (1.9-4.0) LVEF 55-60% LVIDd 3.5 (3.5-5.7) LVIDs 2.7 (2.0-3.5) %FS % LVPWd 1.2 (0.6-1.2) Ao Diam 2.4 (2.0-3.7) 2 DIMENSIONAL ASSESSMENT: RIGHT ATRIUM: NORMAL LEFT ATRIUM: NORMAL RIGHT VENTRICLE: NORMAL LEFT VENTRICLE: NORMAL TRICUSPID VALVE: NORMAL MITRAL VALVE: NORMAL PULMONIC VALVE: NORMAL AORTIC VALVE: NORMAL PERICARDIAL EFFUSION: NONE AORTIC ROOT: NORMAL LEFT VENTRICULAR WALL MOTION: NORMAL DOPPLER/COLOR FLOW: NORMAL COMMENTS: 1. NEGATIVE BUBBLE STUDY. 2. NORMAL 2-DIMENSIONAL ECHOCARIOGRAM WITH DOPPLER 3. NO WALL MOTION ABNORMALITY, NO THROMBUS TECHNOLOGIST: ARIANA MUNOZ
[2023-04-03] MEDS: ACETAMINOPHEN 325 MG TABLET PO PRN (08:27)
[2023-04-03] MEDS: FOLIC ACID 1 MG TABLET PO SCH (08:27)
[2023-04-03] MEDS: acetaZOLAMIDE 250 MG TAB PO SCH (08:28)
--- NOTE | 2023-04-03 08:49 | P.DS ---
Admission Date: 04/01/23 Discharge Date: 04/03/23 Disposition: ROUTINE DISCHARGE Discharge Condition: GOOD Reason for Admission: Left-sided weakness Consultations: 1. Neurology Hospital Course: DIAGNOSES: # Left-Sided Weakness/Paresthesias s/p Tenecteplase # Chronic Headaches - concern for Idiopathic Intracranial Hypertension (Pseudotumor Cerebri) # Morbid Obesity - BMI 48.1 kg/m2 # Vitamin D Deficiency HOSPITAL COURSE: Ms. Katia Green is a 32 year old female with a past medical history significant for morbid obesity who was admitted to the [facility] on 04/01/2023 for left-sided weakness/paresthesias. Upon presentation, she was found to be within the time window for intervention. Her CT revealed, "no evidence of an acute intracranial process. Incidentally noted partially empty sella, which is nonspecific but could relate to idiopathic intracranial hypertension in the appropriate clinical setting." Her CT head angiogram revealed, "no evidence of large vessel occlusion or flow-limiting stenosis." Her CT neck angiogram revealed, "no significant flow abnormality of the neck vessels is identified." Neurology was consulted and she was evaluated by Dr. Altamirano. He recommended tenecteplase, which was given. She was admitted to the Medicine service. Her MRI brain would reveal, "no acute intracranial process. No evidence of ventriculomegaly or mass effect. Partially empty sella again seen." Her transthoracic echocardiogram revealed, "1. negative bubble study. 2. normal 2-dimensional echocariogram with doppler 3. no wall motion abnormality, no thrombus." She was monitored with serial neurologic checks and, over the course of her hospitalization, her neurologic deficits completely corrected. A CT head obtained 24-hours post tenecteplase revealed, "no acute intracranial abnormality." Dr. Altamirano has cleared her for discharge with aspirin, atorvastatin, and folic acid. Upon further history, it appears that she has a history of chronic headaches. There was concern for idiopathic intracranial hypertension (pseudotumor cerebri) given her multiple risk factors. A lumbar puncture was deferred due to recent tenecteplase administration. Per Dr. Altamirano, plan to start acetazolamide and have her follow-up in clinic for an outpatient lumbar puncture. She was advised to schedule a follow-up appointment with Ophthalmology for a dilated eye exam to evaluate for optic nerve swelling. She denies any visual deficits. She verbalized understanding and agreed to make this appointment. She was incidentally found to have vitamin D deficiency. She was counseled on this and advised to take OTC cholecalciferol and follow-up with her PCP for repeat levels. On 04/03/2023, she was seen on morning rounds and deemed medically stable for discharge. She was discharged with instructions to schedule follow-up appointments with her PCP (MAGED Laureano), with Neurology (Dr. Altamirano), and with Ophthalmology (Dr. Cha). She was provided prescriptions for atorvastatin and acetazolamide. She was given the opportunity to ask questions and reported no further questions. Furthermore, all questions were answered to the best of my ability. A copy of this discharge summary will be sent to the above providers to facilitate continuity of care. Today, I personally spent 25 minutes on her case, of which greater than 50% of the time was spent in patient education, counseling, and coordination of care as described above. - Physical Exam General: Alert, In no apparent distress, Oriented x3 HEENT: Atraumatic, Sclerae nonicteric Neck: JVD not distended Respiratory: Clear to auscultation bilaterally, Normal air movement Cardiovascular: No edema, Regular rate/rhythm, No murmurs Gastrointestinal: Normal bowel sounds, Soft, Non-distended, No tenderness Musculoskeletal: No clubbing Integumentary: No rashes Neurological: Normal speech, Normal strength at 5/5 x4 extr, Normal tone, Sensa tion intact, Cranial nerves 3-12 intact, Normal reflexes 2+, Normal affect NIH Stroke Scale 1a. Level of consciousness: 0 - Alert; keenly responsive 1b. LOC questions: 0 - Both questions right 1c. LOC commands: 0 - Performs both tasks 2. Best Gaze: 0 - Normal 3. Visual: 0 - No visual loss 4. Facial Palsy: 0 - Normal symmetry 5a. Motor left arm: 0 - No drift for 10 seconds 5b. Motor right arm: 0 - No drift for 10 seconds 6a. Motor left le - No drift for 5 seconds 6b. Motor right le - No drift for 5 seconds 7. Limb ataxia: 0 - No ataxia 8. Sensory: 0 - Normal; no sensory loss 9. Best Language: 0 - Normal; no aphasia 10. Dysarthria: 0 - Normal 11. Extinction and Inattention: 0 - No abnormality 12. Distal motor function: 0 - No abnormality Total Score: 0 Vital Signs/Physical Exam: Temp Pulse Resp BP Pulse Ox 97.9 F 72 17 110/64 100 04/03/23 05:00 04/03/23 06:00 04/03/23 06:00 04/03/23 06:00 04/03/23 06:00 Laboratory Data at Discharge: WBC 7.00 thou/uL (4.3-10.9) 04/02/23 04:45 Hgb 11.8 g/dL (12.0-15.0) L D 04/03/23 05:15 Hct 35.5 % (36.0-45.0) L 04/03/23 05:15 Plt Count 291 thou/uL (152-406) 04/02/23 04:45 PT 11.1 SECONDS (9.5-12.5) 04/01/23 16:04 INR 1.01 04/01/23 16:04 APTT 29.8 SECONDS (24.3-36.9) 04/01/23 16:04 Sodium 133 mEq/L (136-145) L D 04/03/23 05:15 Potassium 4.0 mEq/L (3.5-5.1) 04/03/23 05:15 BUN 16 mg/dL (7-18) 04/03/23 05:15 Creatinine 0.84 mg/dL (0.55-1.02) 04/03/23 05:15 Glucose 105 mg/dL (74-106) 04/03/23 05:15 Magnesium 1.9 mg/dL (1.6-2.4) 04/01/23 16:04 Total Bilirubin 0.3 mg/dL (0.2-1.0) 04/01/23 16:04 AST 9 U/L (15-37) L 04/01/23 16:04 ALT 23 U/L (13-56) 04/01/23 16:04 Alkaline Phosphatase 80 U/L (45-117) 04/01/23 16:04 Triglycerides 80 mg/dL (<150) 04/02/23 04:45 Cholesterol 153 mg/dL (<200) 04/02/23 04:45 HDL Cholesterol 47 mg/dL (40-60) 04/02/23 04:45 Cholesterol/HDL Ratio 3.26 04/02/23 04:45 Home Medications: RX: Semaglutide [Ozempic] 0.25 mg SQ SEECOM 04/01/23 RX: Aspirin 81 mg PO DAILY #30 tab.chew 04/03/23 RX: Atorvastatin Calcium [Lipitor] 40 mg PO BEDTIME #30 tab 04/03/23 RX: Cholecalciferol (Vitamin D3) [Vitamin D 1000 Iu Tab*] 1,000 unit PO DAILY tab 04/03/23 RX: Folic Acid 1 mg PO DAILY #30 04/03/23 RX: acetaZOLAMIDE [Diamox*] 250 mg PO DAILY #30 tab 04/03/23 New Medications: RX: Aspirin 81 mg PO DAILY #30 tab.chew RX: acetaZOLAMIDE [Diamox*] 250 mg PO DAILY #30 tab RX: Folic Acid 1 mg PO DAILY #30 RX: Atorvastatin Calcium [Lipitor] 40 mg PO BEDTIME #30 tab Physician Discharge Instructions: 1. Please call and schedule a follow-up appointment with your PCP (MAEGD Laureano) in 3-5 days - Please have your PCP repeat your vitamin D level in about 1 month 2. Please call and schedule a follow-up appointment with Ophthalmology (Dr. Cha) in 3-5 days - Please have him perform a dilated eye exam at this appointment 3. Please call and schedule a follow-up appointment with Neurology (Dr. Altamirano) in 5-7 days - As we discussed, he may need to consider a lumbar puncture at this appointment - Please have him provide refills for your atorvastatin and acetazolamide Diet: AHA Activity: Ad radha Followup: Tray Laureano FNP [Primary Care Provider] - Mike Cha MD [OUTSIDE PHYSICIAN] - Pb Altamirano MD [ASSOCIATE-ACTIVE - CAN ADMIT] - Time spent managing pt's care (in minutes): 25
[2023-04-03] MEDS ORDERED: VITAMIN D 1000 UNIT TAB PO SCH (09:00)
[2023-04-03] MEDS ORDERED: ASPIRIN EC 81 MG TAB PO SCH (09:00)
[2023-04-03 11:04] VITALS: BP 117/74; TEMP 97.2
--- NOTE | 2023-04-03 14:52 | EKG ---
Test Date: 2023-04-01 Test Time: 16:31:29 [employer] Machinist: Haider VELEZ MEASUREMENT RESULTS: Intervals: Rate: 83 FL: 146 QRSD: 82 QT: 360 QTc: 423 [place]: P: 40 FL: 146 QRS: 44 T: 33 INTERPRETIVE STATEMENTS: Normal sinus rhythm Normal ECG No previous ECG available for comparison Electronically Signed On 04-03-23 14:45:06 CDT by Fritz Higgins
[2023-04-05 16:10] LABS: Albumin, (SPE) 3.6 g/dL (3.8-4.8); Alpha-1-Globulins 0.3 g/dL (0.2-0.3); Alpha-2-Globulins 0.7 g/dL (0.5-0.9); Gamma Globulins 1.3 g/dL (0.8-1.7); INTERPRETATION REPORT
== END 2023-04-03 10:20 | disposition home or self-care (01) ==
LOC: ER 15:36 → ERHOLD 18:35 → 3RD-ICU 19:07
PROVIDERS: ADMIT Internal Medicine; ATTEND Internal Medicine
DX: R53.1 Weakness (principal); R20.2 Paresthesia of skin; E55.9 Vitamin D deficiency, unspecified; R51.9 Headache, unspecified; E66.01 Morbid (severe) obesity due to excess calories; Z68.42 Body mass index [BMI] 45.0-49.9, adult; Z82.49 Family history of ischemic heart disease and other diseases of the circulatory system
CPT/HCPCS: 92977; 93005; 93306; 85025 ×2; 80048 ×3; 36415 ×2; 83735; 81025; 85610; 80061; 82947; 80076; 86592; 85730; 84443; 85018; 85014; 83036; 84484; 82607; 81241; 81240; 82306; 80307; 83090; 85300; 85302; 85305; 85306; 86021 ×2; 86147 ×2; 84165; 70450 ×2; 70496; 70498; 71045; 70551; 92523; 97161; 96375; 96374; 99291; 99292; Q9967; J3101; J2765; J7030; G0378

== ENCOUNTER 2024-12-06 12:57 | Emergency (ER) | payer BC ==
[2024-12-06] MEDS ORDERED: KETOROLAC 30 MG/ML INJ ONE (13:21)
[2024-12-06] MEDS ORDERED: ONDANSETRON 4 MG/2 ML VIAL ONE (13:21)
[2024-12-06] MEDS ORDERED: NA CHLORIDE 0.9% 1,000 ML ONE (13:22)
[2024-12-06 13:51] LABS: Specific Gravity 1.024 (1.005-1.030); Urine Bacteria <20 /HPF (<20); Urine Bilirubin NEGATIVE (Negative); Urine Blood Negative (Negative); Urine Clarity Turbid (Clear); Urine Color Light-Yellow (Yellow); Urine Culture Reflex Order NOT NEEDED; Urine Glucose NEGATIVE (Negative); Urine Ketones NEGATIVE (Negative); Urine Microscopic Reflex YN ORDER UMIC; Urine Mucus Slight /HPF (None Seen); Urine Nitrite NEGATIVE (Negative); Urine Protein NEGATIVE (Negative); Urine RBC <5 /HPF (None Seen); Urine Urobilinogen Normal (Normal); Urine WBC <5 /HPF (<5); Urine pH 6.5 (5.0-7.0)
[2024-12-06 14:00] LABS: Absolute Basophils 0.1 K/uL (0-0.5); Absolute Eosinophils 0.3 K/uL (0-0.5); Absolute Lymphocytes (CBC) 2.6 K/uL (0.7-4.9); Absolute Monocytes 0.5 K/uL (0.1-1.3); Absolute Neutrophil 3.5 K/uL (1.8-8.0); Eosinophils % 4.2 % (0-4.4); Hematocrit 35.5 % (36.0-45.0); Hemoglobin 12.4 g/dL (12.0-15.0); Lymphocytes % 37.2 % (15.3-44.8); MCH 32.5 pg (27.0-35.0); MCHC 34.8 g/dL (32.0-36.0); MCV 93.4 fL (80-100); MPV 7.2 fL (7.6-11.3); Monocytes % 6.8 % (3.3-12.3); Neutrophils % 50.8 % (41.7-73.7); Nucleated Red Blood Cells % 0.2 % (0-0); Platelets 323 thou/uL (152-406); Red Cell Distribution Width 13.8 % (12.1-15.2)
[2024-12-06 14:18] LABS: ALT/SGPT 18 U/L (13-56); Albumin 3.7 g/dL (3.4-5.0); Albumin/Globulin Ratio 0.9 (1.1-1.8); Alkaline Phosphatase 78 U/L (45-117); Anion Gap 8.6 mEq/L (5.0-15.0); BUN Blood Urea Nitrogen 19 mg/dL (7-18); Bicarbonate 26 mEq/L (21-32); Bilirubin Total 0.3 mg/dL (0.2-1.0); Globulin 4.2 g/dL (2.3-3.5); Glomerular Filtration Rate 87 ml/min (=/>90); Glucose Level 102 mg/dL (74-106); Lipase 31 U/L (13-75); Potassium 3.6 mEq/L (3.5-5.1); Protein, Total 7.9 g/dL (6.4-8.2); Sodium Level 136 mEq/L (136-145)
[2024-12-06 14:23] LABS: AST/SGOT < 10 U/L (15-37)
--- NOTE | 2024-12-06 14:37 | RAD REPORT ---
EXAMINATION: CT ABDOMEN AND PELVIS WITH CONTRAST CLINICAL INDICATION: Female, 33 years old.ABD PAIN TECHNIQUE: CT abdomen and pelvis was performed, after the administration of IV contrast, as per [facility]. Axial, sagittal and coronal reconstructions were obtained. One or more of the following dose reduction techniques were used: Automated exposure control, adjustment of the mA and/o r kV according to patient size, and/or iterative reconstruction. Unless otherwise specified, incidental findings do not require dedicated imaging follow-up. [id number]. COMPARISON: No prior exam. FINDINGS: LOWER CHEST: No acute process identified.No significant pericardial effusion. Mild circumferential th ickening of the distal esophagus which could reflect esophagitis. UPPER GI: No significant abnormality. LIVER: No significant focal abnormality. GALLBLADDER/BILE DUCTS: Cholecystectomy. No significant biliary ductal dilatation.? PANCREAS: No mass, ductal dilation, or corine-pancreatic fluid. SPLEEN: Unremarkable. ADRENALS: No adrenal masses. KIDNEYS AND URETERS: No hydronephrosis.Low density and/or too small to characterize renal lesions whi ch are statistically benign. ABDOMINAL AORTA AND OTHER VESSELS: Normal caliber aorta and IVC. PERITONEUM: No abnormal free fluid. No free air. LYMPH NODES: No pathologic lymphadenopathy. ABDOMINAL WALL: Small fat containing umbilical hernia. SMALL BOWEL/COLON: Small bowel has normal course and caliber. No colonic wall thickening or pericolon ic inflammatory changes.Normal appendix. URINARY BLADDER: Underdistended but grossly unremarkable. REPRODUCTIVE ORGANS: No pathologic process. MUSCULOSKELETAL: No acute or suspicious osseous abnormality. ADDITIONAL FINDINGS: None. IMPRESSION: No acute or significant abnormalities seen in the abdomen or pelvis. Normal appendix.
--- NOTE | 2024-12-06 14:43 | ER ---
Nurse's Notes [facility] Name: Katia Green Age: 33 yrs Sex: Female : 1990 Arrival Date: 12/06/2024 Time: 12:57 Bed 14 Private MD: Diagnosis: Upper abdominal pain, unspecified Presentation: 12/06 13:05 Chief complaint: Patient states: RUQ pain that radiates down to right groin. Started on me1 Thursday night but was dull and has become sharp and 8/10. c/o nausea and constipation. Denies diarrhea. Denies fevers. Coronavirus screen: Vaccine status: Patient reports being unvaccinated. Ebola Screen: No symptoms or risks identified at this time. Initial Sepsis Screen: Does the patient meet any 2 criteria? HR > 90 bpm. No. Patient's initial sepsis screen is negative. Risk Assessment: Do you want to hurt yourself or someone else? Patient reports no desire to harm self or others. Onset of symptoms was December 03, 2024. 13:05 Method Of Arrival: [place] [facility] [place] 13:05 Acuity: TOO 3 oh1 14:55 Initial Sepsis Screen: Does the patient have a suspected source of infection? No. cm10 Patient's initial sepsis screen is negative. EDGE RUNNER: 13:09 LMP N/A - Hysterectomy, Not [facility] [place] Historical: - Allergies: 13:08 Bactrim; me1 - Home Meds: 13:08 None [Active]; me1 - PMHx: 13:09 None; me1 - PSHx: 13:08 Cholecystectomy; hysterectomy; right ovary; Tonsillectomy; me1 - Immunization history:: Adult Immunizations up to date. - Infectious Disease History:: Denies. - Social history:: Smoking status: Patient denies any tobacco usage or history of. Screenin:03 [facility] ED Fall Risk Assessment (Adult) History of falling in the last 3 months, mb9 including since admission No falls in past 3 months (0 pts) Confusion or Disorientation No (0 pts) Intoxicated or Sedated No (0 pts) Impaired Gait No (0 pts) Mobility Assist Device Used No (0 pt) Altered Elimination No (0 pt) Score/Fall Risk Level 0 - 2 = Low Risk Oriented to surroundings, Maintained a safe environment, Educated pt \T\ family on fall prevention, incl call for assistance when getting out of bed. Abuse screen: Denies threats or abuse. Nutritional screening: No deficits noted. Tuberculosis screening: No symptoms or risk factors identified. Assessment: 14:02 General: Appears in no apparent distress. Behavior is calm, cooperative. Pain: mb9 Complains of pain in right upper quadrant Pain radiates to right leg Quality of pain is described as throbbing, Pain began gradually. Neuro: Level of Consciousness is awake, alert, obeys commands, Oriented to person, place, time, situation, Appropriate for age. Cardiovascular: Patient's skin is warm and dry. Respiratory: Airway is patent Respiratory effort is even, unlabored, Respiratory pattern is regular, symmetrical. GI: Abdomen is round non-distended, Abd is soft X 4 quads Abdomen is tender to palpation in right upper quadrant. : No signs and/or symptoms were reported regarding the genitourinary system. EENT: No signs and/or symptoms were reported regarding the EENT system. Derm: Skin is pink, warm \T\ dry. Musculoskeletal: Range of motion: intact in all extremities. Vital Signs: 13:05 BP 156 / 101; Pulse 107; Resp 18; Temp 98.3; Pulse Ox 100% ; Weight 131.54 kg; Height 5 me1 ft. 5 in. ; Pain 8/10; 14:43 BP 123 / 72; Pulse 77; Resp 15; Pulse Ox 100% ; cm10 13:05 Body Mass Index 48.26 (131.54 kg, 165.1 cm) me1 13:05 Pain Scale: Adult me1 ED Course: 13:02 Patient arrived in ED. al6 13:03 Wen Mcguire FNP-C is PHCP. kb 13:04 Demarco Gore MD is Attending Physician. kb 13:08 Triage completed. me1 13:09 Arm band placed on Patient placed in waiting room. me1 13:24 Zully Angel, AUGIE is Primary Nurse. mb9 14:03 Placed in gown. Bed in low position. Call light in reach. Side rails up X 1. Provided mb9 Education on: press call light if needing anything. Client placed on continuous cardiac and pulse oximetry monitoring. NIBP monitoring applied. 14:04 No provider procedures requiring assistance completed. mb9 14:29 CT Abd/Pelvis - IV Contrast Only In Process Unspecified. EDMS 14:54 IV discontinued, intact, bleeding controlled, No redness/swelling at site. Pressure cm10 dressing applied. Administered Medications: 13:55 Drug: TORadol - Ketorolac IVP 15 mg IVP once Route: IVP; Site: right antecubital; mb9 14:43 Follow up: Response: No adverse reaction cm10 14:01 Drug: Ondansetron IVP 4 mg IVP once; over 2 minutes Route: IVP; Site: right antecubital;mb9 14:43 Follow up: Response: No adverse reaction cm10 14:01 Drug: NS 0.9% IV 1000 ml IV at 1 bolus Per protocol; to be given as a bolus over 60 mb9 minutes Route: IV; Rate: 1 bolus; Site: right antecubital; 14:54 Follow up: Response: No adverse reaction; IV Status: Completed infusion; IV Intake: cm10 100ml Medication: 14:03 VIS not applicable for this client. mb9 Intake: 14:54 IV: 100ml; Total: 100ml. cm10 Outcome: 14:43 Discharge ordered by . kb 14:54 Discharged to home ambulatory, cm10 14:54 Condition: good 14:54 Discharge instructions given to patient, Instructed on discharge instructions, follow up and referral plans. medication usage, Demonstrated understanding of instructions, follow-up care, medications, Prescriptions given X 2, 14:55 Patient left the ED. cm10 Signatures: Dispatcher [employer] EDWen Saravia, ELECTRIFIER OPERATOR-C ELECTRIFIER OPERATOR-Zully Beasley RN RN mb9 Beatriz Leone RN RN 10 Josselin Porter RN RN me1 Norma Sauceda6
--- NOTE | 2024-12-06 14:43 | EDPHYS ---
Physician Documentation [facility] Name: Katia Green Age: 33 yrs Sex: Female : 1990 Arrival Date: 12/06/2024 Time: 12:57 Bed 14 Private MD: ED Physician Demarco Gore HPI: 12/06 13:08 This 33 yrs old Black Female presents to ER via Unassigned with complaints of Abdominal kb Pain. 13:08 Pt is a 33 year old female who presents for RUQ pain that started 3 days ago. Reports kb nausea and dark urine. Denies vomiting, diarrhea, fever. States pain has been constant since onset and progressively getting worse. Pt has had a cholecystectomy and hysterectomy in the past. . HOSPICE MUSIC THERAPY: 13:09 LMP N/A - Hysterectomy, Not me1 Historical: - Allergies: 13:08 Bactrim; me1 - Home Meds: 13:08 None [Active]; me1 - PMHx: 13:09 None; me1 - PSHx: 13:08 Cholecystectomy; hysterectomy; right ovary; Tonsillectomy; me1 - Immunization history:: Adult Immunizations up to date. - Infectious Disease History:: Denies. - Social history:: Smoking status: Patient denies any tobacco usage or history of. ROS: 13:07 Constitutional: As per HPI kb Exam: 13:07 Constitutional: This is a well developed, well nourished patient who is awake, alert, kb and in no acute distress. Head/Face: Normocephalic, atraumatic. ENT: Moist Mucous membranes Cardiovascular: Regular rate Respiratory: Respirations even and unlabored. No increased work of breathing. Talking in full sentences Skin: Warm, dry with normal turgor. Normal color. MS/ Extremity: Pulses equal, no cyanosis. Neurovascular intact. Full, normal range of motion. Neuro: Awake and alert, GCS 15, oriented to person, place, time, and situation. 13:07 Abdomen/GI: Inspection: obese Bowel sounds: normal, Palpation: soft, in all quadrants, moderate abdominal tenderness, in the right upper quadrant, Vital Signs: 13:05 BP 156 / 101; Pulse 107; Resp 18; Temp 98.3; Pulse Ox 100% ; Weight 131.54 kg; Height 5 me1 ft. 5 in. ; Pain 8/10; 14:43 BP 123 / 72; Pulse 77; Resp 15; Pulse Ox 100% ; cm10 13:05 Body Mass Index 48.26 (131.54 kg, 165.1 cm) me1 13:05 Pain Scale: Adult me1 MDM: 13:04 Medical Screening Exam initiated kb 14:38 Data reviewed: vital signs, nurses notes. kb 14:38 Differential diagnosis: appendicitis, gastroesophageal reflux disease, Hepatitis, kb non-specific abd pain. Counseling: I had a detailed discussion with the patient and/or guardian regarding the historical points, exam findings, and any diagnostic results supporting the discharge/admit diagnosis, lab results, radiology results, the need for outpatient follow up, a family practitioner, to return to the emergency department if symptoms worsen or persist or if there are any questions or concerns that arise at home. 12/06 13:07 Order name: CBC with Diff; Complete Time: 14:04 kb 12/06 13:07 Order name: CMP; Complete Time: 14:23 kb 12/06 13:07 Order name: Lipase; Complete Time: 14:23 kb 12/06 13:07 Order name: Urinalysis w/ reflexes; Complete Time: 13:59 kb 12/06 13:07 Order name: CT Abd/Pelvis - IV Contrast Only; Complete Time: 14:38 kb 12/06 13:07 Order name: IV Saline Lock; Complete Time: 14:01 kb 12/06 13:07 Order name: Labs collected and sent; Complete Time: 14:01 kb 12/06 14:38 Order name: Vital Signs; Complete Time: 14:43 kb Administered Medications: 13:55 Drug: TORadol - Ketorolac IVP 15 mg IVP once Route: IVP; Site: right antecubital; mb9 14:43 Follow up: Response: No adverse reaction cm10 14:01 Drug: Ondansetron IVP 4 mg IVP once; over 2 minutes Route: IVP; Site: right antecubital;mb9 14:43 Follow up: Response: No adverse reaction cm10 14:01 Drug: NS 0.9% IV 1000 ml IV at 1 bolus Per protocol; to be given as a bolus over 60 mb9 minutes Route: IV; Rate: 1 bolus; Site: right antecubital; 14:54 Follow up: Response: No adverse reaction; IV Status: Completed infusion; IV Intake: cm10 100ml Disposition: 19:23 Co-signature as Attending Physician, Demarco Gore MD I reviewed the patient's care rn provided by the Advanced Practice Provider and agree with the diagnosis and treatment plan. Disposition Summary: 12/06/24 14:43 Discharge Ordered Notes: Location: Home kb Condition: Stable kb Diagnosis - Upper abdominal pain, unspecified kb Followup: kb - With: Emergency Department - When: As needed - Reason: Worsening of condition Followup: kb - With: Private Physician - When: 2 - 3 days - Reason: Recheck today's complaints, Continuance of care, Re-evaluation by your physician Discharge Instructions: - Discharge Summary Sheet kb - Abdominal Pain, Adult, [id number] kb Forms: - Medication Reconciliation Form kb - Antibiotic Education kb - Prescription Opioid Use kb - Patient Portal Instructions kb - Leadership Thank You Letter kb Prescriptions: - Zofran 4 mg Oral tablet - take 1 tablet ORAL route every 6 hours As needed; 12 tablet; Refills: 0, kb Product Selection Permitted - Diclofenac Sodium 75 mg Oral tablet, delayed release (enteric coated) - take 1 tablet ORAL route 2 times per day As needed; 30 tablet; Refills: 0, kb Product Selection Permitted Signatures: Dispatcher [employer] EDMS Wen Mcguire, ELECTRICIAN MANAGER-C ELECTRICIAN MANAGER-Ckb Demarco Gore MD MD rn Wilkerson, Zully Simon, RN RN mb9 Josselin Porter RN RN me1 Beatriz Leone RN cm10 Corrections: (The following items were deleted from the chart) 13:08 13:08 CBC+H.LAB.BRZ ordered. EDMS EDMS 13:08 13:08 COMPREHENSIVE METABOLIC PANEL+C.LAB.BRZ ordered. EDMS EDMS 13:08 13:08 LIPASE+C.LAB.BRZ ordered. EDMS EDMS 13:08 13:08 Urinalysis+U.LAB.BRZ ordered. EDMS EDMS 13:08 13:08 Abdomen Pelvis W Con+CT.RAD.BRZ ordered. EDMS EDMS
[2024-12-06 17:36] VITALS: TEMP 98.3; O2SAT 100
[2024-12-06 17:38] VITALS: BP 123/72
== END 2024-12-06 14:55 | disposition home or self-care (01) ==
LOC: ER 12:57
DX: R10.11 Right upper quadrant pain (principal); R11.0 Nausea
CPT/HCPCS: 96361; 85025; 81001; 36415; 83690; 80053; 74177; 96375; 96374; 99284; Q9967; J2405; J7030